=== PATIENT | female | born 1945 | race Caucasian/White ===

== ENCOUNTER 2021-05-20 15:00 | Observation (INO) | payer MEDICARE, OTHER, SELFPAY ==
[2021-05-20 15:03] VITALS: BP 198/106; PULSE 113; RESP 25; O2SAT 97; BMI 41.5
--- NOTE | 2021-05-20 15:09 | ECG_ITS ---
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 Measurements Intervals [place] Rate: 115 P: [place]: QRS: -66 QRSD: 146 T: 84 QT: 381 QTc: 529 Interpretive Statements ATRIAL FIBRILLATION WITH RAPID VENTRICULAR RESPONSE WITH ABERRANT CONDUCTION OR VENTRICULAR PREMATURE COMPLEXES RIGHT BUNDLE BRANCH BLOCK [120+ ms QRS DURATION, UPRIGHT V1, 40+ ms S IN I/aVL/V4/V5/V6] LEFT ANTERIOR FASCICULAR BLOCK [QRS AXIS <= -45, QR IN I, RS IN II] VOLTAGE CRITERIA FOR LVH [MEETS CRITERIA IN ONE OF: R(aVL), S(V1), R(V5), R(V5/V6)+S(V1)] POSSIBLE ANTERIOR MYOCARDIAL INFARCTION , PROBABLY OLD [30 ms Q WAVE IN V3/V4, OR R < 0.2 mV IN V4] No previous ECG available for comparison Electronically Signed On 05-20-2021 23:21:24 CDT by Genna Martinez M.D. [id number] f
--- NOTE | 2021-05-20 15:15 | ED_ITS ---
HPI - General Adult General: Chief complaint: Chest Pain Stated complaint: CP/ SOB/ AFIB WITH RVR Time Seen by Provider: 05/20/21 15:08 History of Present Illness: HPI narrative: Patient is a 76F with history of hypertension, pulmonary hypertension secondary to obstructive sleep apnea who presents the emergency room at the request of his outpatient PCPs provider in [place]. Patient was noted in clinic to be in atrial fibrillation with RVR to the 160s with chest pain shortness of breath. At that point time, patient had a blood pressure of 200/120. EMS was alerted and gave patient 20 mg of diltiazem in route with significant improvement of heart rate to low 100s. On arrival, patient is currently not complaining of chest pain shortness breath or palpitation or lightheadedness. Patient has no focal neurological complaints. Patient reports that during his PCPs visit, he has had significant chest pain shortness of breath. Now the pain and shortness of breath have resolved. Patient has no known history of atrial fibrillation in the past. No history of thyroid disease. Onset: 2 hrs ago Duration:2 hrs Location:outpatient office Severity:moderate/severe Review of Systems Narrative: Constitutional: No fever, no chills. HEENT: No vision changes CV: +chest pain, +palpitations PULM: no cough, +dyspnea. GI: No abdominal pain, no N/V/D. : No dysuria MSKEL: No muscle pain SKIN: No new rashes, no lesions. NEURO: No headache, no focal weakness. HEME: No visible bruises PSYCH: Normal mood PFS ED PFSH: Medical History (Updated 05/20/21 @ 21:23 by Shadia Vera MD) Afib Cataract Hearing impairment History of cardioversion LISANDRA (obstructive sleep apnea) Pulmonary HTN Surgical History (Updated 05/20/21 @ 18:10 by Maura Burgos MD) S/P AAA repair S/P colon resection Family History (Updated 05/20/21 @ 18:11 by Maura Burgos MD) Denies family history of Clotting disorder Social History (Updated 05/20/21 @ 18:11 by Maura Burgos MD) Smoking and tobacco status: former smoker Alcohol intake: never Substance/Drug Use: never Household members: spouse Housing: House Female Reproductive History: Date of last menstrual period: 11/28/20 Physical Exam Narrative: EXAM NARRATIVE: Head: Atraumatic Eyes: PERRL, conjunctiva without injection ENT: Mucous membrane moist NECK: Supple, ROM intact LUNGS: LCTAB, no crackles/rhonchi CV: Sinus tachycarida ABDOMEN: Soft, nontender in all quadrants EXTREMITY: Normal ROM SKIN: 1+ LE swelling NEURO: Awake and alert, no focal motor deficits PSYCH: Normal mood and affect Course Vital Signs: Vital signs: Vital Signs Temperature 97.8 F 05/20/21 20:59 Pulse Rate 115 H 05/20/21 20:59 Respiratory Rate 16 05/20/21 20:59 Blood Pressure 154/99 05/20/21 20:59 Pulse Oximetry 92 05/20/21 20:59 MDM - General Adult MDM Narrative: Medical decision making narrative: 76F with history of hypertension, pulmonary hypertension who presents emergency room for new onset atrial fibrillation with RVR, chest pain shortness of breath. On exam, patient is hypertensive to 190/100 patient's heart rate is noted to be between 100-120. Rest of exam within normal limit. EKG showing Afib with RVR at SA=262. Normal axis. No ST elevations/depressions to suggest coronary occlusion. Normal QRS, QT intervals. On reassessment, the patient received aspirin. She is currently chest pain- free. Troponin of 23 with no prior comparison. proBNP elevated at 482. Given new onset of atrial fibrillation with RVR and no prior workup for chest pain, patient will be mated to hospital for further evaluation. While patient was here, she received 10 mg of diltiazem. Heart rate now improved to the low 100s. Her TSH/T4 are within normal limit. Pending D-dimer. Disposition: Admission Lab Data: Labs: Lab Results 05/20/21 05/20/21 05/20/21 Range/Units 15:50 15:50 15:50 WBC 4.7 (4.0-10.0) 10^3/ uL RBC 4.92 (4.1-5.3) 10^6/u L Hgb 14.9 (11.5-15.3) g/dL Hct 46.6 (37.0-47.0) % MCV 94.7 (81-99) fl MCH 30.3 (28.0-34.0) pg MCHC 32.0 (30.0-36.0) g/dL RDW 13.3 (12.1-15.1) % Plt Count 196 (130-400) 10^3/c mm MPV 10.5 H (7.4-10.4) fL Neut % (Auto) 61.6 % Lymph % (Auto) 17.8 % [place] % (Auto) 19.1 % Eos % (Auto) 0.4 % Baso % (Auto) 0.9 % Neut # (Auto) 2.87 (1.8-7.7) 10^3/u L Lymph # (Auto) 0.8 (0.8-4.8) 10^3/u L [place] # (Auto) 0.9 (0.2-0.9) 10^3/u L Eos # (Auto) 0.0 (0.0-0.8) 10^3/u L Baso # (Auto) 0.0 (0.0-0.1) 10^3/u L Nucleated RBC % (a uto) 0 % Nucleated RBCs # 0.0 /100WBC D-Dimer (0-0.59) ug/mIFE U Sodium 136 (136-145) mmol/L Potassium 4.1 (3.5-5.1) mmol/L Chloride 100 (98-107) mmol/L Carbon Dioxide 24 (22-29) mmol/L Anion Gap 16.1 (5-19) BUN 16 (8-23) mg/dL Creatinine 1.1 H (0.5-0.9) mg/dL GFR Calculation Not Reportable Glucose 232 H (65-115) mg/dL Calculated Osmolal ity 291 (285-295) mOsm/k g Calcium 8.2 L (8.5-10.5) mg/dL Troponin T Baselin e 23 H (0-10) ng/L NT-Pro-B Natriuret Pep 482 H (0-450) pg/mL TSH 1.22 (0.27-4.20) uIU/ mL Free T4 1.35 (0.82-1.77) ng/d L 05/20/21 Range/Units 15:50 WBC (4.0-10.0) 10^3/ uL RBC (4.1-5.3) 10^6/u L Hgb (11.5-15.3) g/dL Hct (37.0-47.0) % MCV (81-99) fl MCH (28.0-34.0) pg MCHC (30.0-36.0) g/dL RDW (12.1-15.1) % Plt Count (130-400) 10^3/c mm MPV (7.4-10.4) fL Neut % (Auto) % Lymph % (Auto) % [place] % (Auto) % Eos % (Auto) % Baso % (Auto) % Neut # (Auto) (1.8-7.7) 10^3/u L Lymph # (Auto) (0.8-4.8) 10^3/u L [place] # (Auto) (0.2-0.9) 10^3/u L Eos # (Auto) (0.0-0.8) 10^3/u L Baso # (Auto) (0.0-0.1) 10^3/u L Nucleated RBC % (a uto) % Nucleated RBCs # /100WBC D-Dimer 1.27 H (0-0.59) ug/mIFE U Sodium (136-145) mmol/L Potassium (3.5-5.1) mmol/L Chloride (98-107) mmol/L Carbon Dioxide (22-29) mmol/L Anion Gap (5-19) BUN (8-23) mg/dL Creatinine (0.5-0.9) mg/dL GFR Calculation Glucose (65-115) mg/dL Calculated Osmolal ity (285-295) mOsm/k g Calcium (8.5-10.5) mg/dL Troponin T Baselin e (0-10) ng/L NT-Pro-B Natriuret Pep (0-450) pg/mL TSH (0.27-4.20) uIU/ mL Free T4 (0.82-1.77) ng/d L Discharge Plan Discharge Patient Disposition: Admitted As Inpatient Admit Provider: Maura Burgos Clinical Impression: Atrial fibrillation, Chest pain, Acute dyspnea Condition: Stable Coding Level of Care Code ED Casting Room Helper for Alexander Ochoa
[2021-05-20 15:46] VITALS: PULSE 114; RESP 16; O2SAT 96
[2021-05-20] MEDS: aspirin 325 mg Tablet PO (15:47)
[2021-05-20 16:00] LABS: Basophils % 0.9 %; Eosinophils % 0.4 %; Hematocrit 46.6 % (37.0-47.0); Hemoglobin 14.9 g/dL (11.5-15.3); Lymphocytes # 0.8 10^3/uL (0.8-4.8); Lymphocytes % 17.8 %; Mean Corpuscular Hemoglobin 30.3 pg (28.0-34.0); Mean Corpuscular Volume 94.7 fl (81-99); Mean Platelet Volume 10.5 fL (7.4-10.4); Monocytes # 0.9 10^3/uL (0.2-0.9); Monocytes % 19.1 %; Neutrophils # 2.87 10^3/uL (1.8-7.7); Neutrophils % 61.6 %; Nucleated Red Blood Cells % 0 %; Platelet Count 196 10^3/cmm (130-400); Red Blood Count 4.92 10^6/uL (4.1-5.3); Red Cell Distribution Width 13.3 % (12.1-15.1); White Blood Count 4.7 10^3/uL (4.0-10.0)
[2021-05-20 16:39] LABS: Anion Gap 16.1 (5-19); Blood Urea Nitrogen 16 mg/dL (8-23); Calcium 8.2 mg/dL (8.5-10.5); Carbon Dioxide 24 mmol/L (22-29); Chloride 100 mmol/L (98-107); Free T4 Free Thyroxine 1.35 ng/dL (0.82-1.77); Glucose 232 mg/dL (65-115); NT Pro B Type Natriuretic Pept 482 pg/mL (0-450); Osmolality Calculated 291 mOsm/kg (285-295); Potassium 4.1 mmol/L (3.5-5.1); Sodium 136 mmol/L (136-145); Thyroid Stimulating Hormone 1.22 uIU/mL (0.27-4.20)
[2021-05-20 16:40] LABS: Troponin(5th) Baseline 23 ng/L (0-10)
--- NOTE | 2021-05-20 17:00 | XRR_ITS ---
PROCEDURE INFORMATION: Exam: XR Chest Exam date and time: 05/20/2021 5:00 PM Age: 76 years old Clinical indication: Pain; Left-sided; Additional info: Chest pain TECHNIQUE: Imaging protocol: XR of the chest. Views: 1 view. COMPARISON: CTA Abdomen/Pelvis [id number] 09/11/2014 10:22 AM FINDINGS: Lungs: No focal airspace consolidation. Pleural spaces: Unremarkable. No pleural effusion. No pneumothorax. Heart/Mediastinum: Moderate cardiac enlargement. Vasculature: Mild atherosclerosis of aortic arch. Bones/joints: Unremarkable. XR/XR chest 1V portable [id number] IMPRESSION: No acute pulmonary disease.
[2021-05-20 17:10] LABS: D Dimer 1.27 ug/mIFEU (0-0.59)
--- NOTE | 2021-05-20 17:18 | P.HP_ITS ---
Providers/Chief Complaint Primary Care Provider: Aleksandra Oviedo APN Chief Complaint: CP/ SOB/ AFIB WITH RVR History of Present Illness Laura Lynn is a 76 year old female who has history of atrial fibrillation status post cardioversion x3 in the past, pulmonary hypertension sleep apnea uses CPAP at night, presented with chief complaint of chest pain and left arm pain. Patient is stating that she was driving when she experienced chest tightness it associated with chest pain in her left arm. She did not feel nauseous no episode of vomiting recent fever. She felt short of breath, she is describing her pain as tightness which lasted for about 15 minutes until she received sublingual nitroglycerin. She was seen in clinic by Beryl Oviedo was diagnosed with A. fib and sent to the ER. EMS was called at that time she was diagnosed with A. fib RVR heart rate in 180s she was given 20 mg of diltiazem which improved her heart rate however in the ER she received 10 mg of Cardizem, her heart rate was fluctuating between 98-1 07 Hypertensive 198/106, blood pressure at the clinic systolic blood pressure 220mmhg Review of Systems Const: Reports: chills, body aches and fatigue Medications/Allergies Home Medications Medication Instructions Recorded Confirmed Last Taken Type metoprolol tartrate 50 mg PO BID 05/20/21 05/20/21 05/20/21 History Allergies Allergy/AdvReac Type Severity Reaction Status Date / Time No Known Allergies Allergy Unverified 05/20/21 16:58 PFSH Acute PFSH: Medical History (Updated 05/20/21 @ 18:10 by Maura Burgos MD) Afib Cataract Hearing impairment History of cardioversion LISANDRA (obstructive sleep apnea) Pulmonary HTN Surgical History (Updated 05/20/21 @ 18:10 by Maura Burgos MD) S/P AAA repair S/P colon resection Family History (Updated 05/20/21 @ 18:11 by Maura Burgos MD) Denies family history of Clotting disorder Social History (Updated 05/20/21 @ 18:11 by Maura Burgos MD) Smoking and tobacco status: former smoker Alcohol intake: never Substance/Drug Use: never Household members: spouse Housing: House Female Reproductive History: Date of last menstrual period: 11/28/20 Vitals/I&O/Wt Last Vital Signs Pulse 114 H 05/20/21 15:46 Resp 16 05/20/21 15:46 BP 198/106 05/20/21 15:03 Pulse Ox 96 05/20/21 15:46 Weight last 48 hrs Weight 113.398 kg Physical Exam Narrative: EXAM NARRATIVE: Pleasant female who is sitting comfortably in her bed A. fib heart rate fluctuating between 95-1 05 198/106 blood pressure Variable S1-S2 There is seem to have right-sided heart failure signs with lower extremity edema bilaterally Kyphosis Distended abdomen Bilateral breath sounds with crackles at the bases EOMI, PERRLA No neurological deficit Data : 05/20/21 15:50 05/20/21 15:50 A&P Assessment and plan (1) New onset a-fib: Status: Acute (2) Obesity: Status: Acute (3) Hypertensive urgency: Status: Acute Additional A&P Information A. fib RVR Heart rate fluctuated between 95-1 05 I will start her on metoprolol 50 mg twice a day Start her on Eliquis [id number] is 4 Patient is stating that she was cardioverted x3 in the past by Dr. Pike for A. fib RVR but she never took any anticoagulating agent TSH normal check potassium magnesium level D-dimer came back as 1.2 Request CTA to rule out PE Her chest pain most likely secondary to A. fib RVR will request serial troponin and EKGs and echo in the morning Lower extremity venous Dopplers Sleep apnea: Auto CPAP at night DNR/DNI goals of care discussed with the patient in front of her Cardiac diet Attestations Medical Necessity Statement*: Anticipating discharge within 48 hours Time Spent in Patient Care: Greater than 35 minutes Coding Level of Care Code Acute Brand Director for Chg Fwd Diagnoses New onset a-fib I48.91 Obesity E66.9 Hypertensive urgency I16.0
[2021-05-20 18:33] LABS: Troponin 5 2HR 23.87 ng/L (0-10); Troponin 5 2HR Delta 0.87 ABS# (0-10)
[2021-05-20 18:36] LABS: Procalcitonin 0.08 ng/mL (0-0.5)
--- NOTE | 2021-05-20 18:44 | CTR_ITS ---
PROCEDURE INFORMATION: Exam: CTA Chest With Contrast Exam date and time: 05/20/2021 6:44 PM Age: 76 years old Clinical indication: Abnormal findings; Abnormal diagnostic tests; Elevated d-dimer; Prior surgery; Additional info: Afib rvr new onset TECHNIQUE: Imaging protocol: Computed tomographic angiography of the chest with contrast. 3D rendering (Not supervised by radiologist): MIP and/or 3D reconstructed images were created by the technologist. Radiation optimization: All CT scans at this facility use at least one of these dose optimization techniques: automated exposure control; mA and/or kV adjustment per patient size (includes targeted exams where dose is matched to clinical indication); or iterative reconstruction. Contrast material: VISI 320; Contrast volume: 66 ml; Contrast route: INTRAVENOUS (IV); COMPARISON: CR XR chest 1V portable [id number] 05/20/2021 5:14 PM RADIATION DOSE METRICS: Total DLP (mGy-cm): 583.79 FINDINGS: Pulmonary arteries: Normal. No pulmonary emboli. Aorta: Unremarkable. No aortic aneurysm. No aortic dissection. Lungs: Moderate severity emphysema. Mild bronchial wall thickening. Negative for endobronchial obstruction. No focal airspace consolidation. Pleural spaces: Unremarkable. No pneumothorax. No pleural effusion. Heart: Multi chamber cardiac enlargement. Negative for pericardial effusion. Lymph nodes: Unremarkable. No enlarged lymph nodes. Bones/joints: Bridging osteophytes throughout thoracic spine. No acute thoracic fractures. No suspicious bone lesion. Rightward convex midthoracic spine scoliosis. Soft tissues: Unremarkable. CT/CT angio chest PE protcl [id number] IMPRESSION: 1. Negative for pulmonary embolism. 2. Negative for focal pneumonia. Radiation Dose CTDIVOL = (mGy): DLP = 583.79 (mGy-cm)
[2021-05-20] MEDS: iodixanol 320 mg/mL 100mL Btl IV (19:03)
[2021-05-20 19:14] VITALS: BP 195/89; PULSE 124; RESP 20; O2SAT 96
[2021-05-20 19:40] LABS: Amphetamines Screen Urine Negative (Negative); Barbiturates Screen Urine Negative (Negative); Benzodiazepines Screen Urine Negative (Negative); Cocaine Screen Urine Negative (Negative); Opiate Screen Urine Positive (Negative); PCP Screen Urine Negative (Negative); THC Screen Urine Negative (Negative)
[2021-05-20 19:50] LABS: NT Pro B Type Natriuretic Pept 464 pg/mL (0-450)
[2021-05-20 20:59] VITALS: BP 154/99; PULSE 115; RESP 16; TEMP 36.6; O2SAT 92
[2021-05-20] MEDS: enoxaparin 120 mg/0.8 mL Syringe 110 MG SUBCUT (21:09)
[2021-05-20] MEDS: metoprolol tartrate 50 mg Tablet PO (21:09)
--- NOTE | 2021-05-20 21:09 | ECG_ITS ---
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 Measurements Intervals [place] Rate: 90 P: NV: QRS: -61 QRSD: 127 T: 67 QT: 390 QTc: 479 Interpretive Statements ATRIAL FIBRILLATION WITH ABERRANT CONDUCTION OR VENTRICULAR PREMATURE COMPLEXES RIGHT BUNDLE BRANCH BLOCK [120+ ms QRS DURATION, UPRIGHT V1, 40+ ms S IN I/aVL/V4/V5/V6] VOLTAGE CRITERIA FOR LVH [MEETS CRITERIA IN ONE OF: R(aVL), S(V1), R(V5), R(V5/V6)+S(V1)] INFERIOR MYOCARDIAL INFARCTION , PROBABLY OLD [40+ ms Q WAVE AND/OR ST/T ABNORMALITY IN II/aVF] ANTEROLATERAL MYOCARDIAL INFARCTION , OF INDETERMINATE AGE [40+ ms Q WAVE IN I/aVL/V3-V6] Compared to ECG 05/20/2021 15:36:50 Left anterior fascicular block no longer present Myocardial infarct finding still present Electronically Signed On 05-20-2021 23:53:18 CDT by Genna Martinez M.D. [id number]
[2021-05-20 21:34] VITALS: BMI 46.4
[2021-05-20 22:10] VITALS: PULSE 103; RESP 14; O2SAT 94
[2021-05-20 22:21] LABS: Troponin 5 6HR 30.76 ng/L (0-10); Troponin 5 6HR Delta 7.76 ng/L (0-12)
[2021-05-21] VITALS: BP 152/42; PULSE 92; RESP 14; TEMP 36.6; O2SAT 98
[2021-05-21 04:17] VITALS: BP 147/104; PULSE 83; RESP 14; TEMP 36.3; O2SAT 94
[2021-05-21 04:30] VITALS: PULSE 83; RESP 14; O2SAT 94
[2021-05-21 04:54] LABS: Basophils # 0.1 10^3/uL (0.0-0.1); Basophils % 1.2 %; Eosinophils % 0.7 %; Hematocrit 50.9 % (37.0-47.0); Hemoglobin 15.4 g/dL (11.5-15.3); Lymphocytes # 2.1 10^3/uL (0.8-4.8); Lymphocytes % 36.7 %; Mean Corpuscular HGB Conc 30.3 g/dL (30.0-36.0); Mean Corpuscular Hemoglobin 30.4 pg (28.0-34.0); Mean Corpuscular Volume 100.4 fl (81-99); Monocytes # 1.1 10^3/uL (0.2-0.9); Monocytes % 18.5 %; Neutrophils # 2.43 10^3/uL (1.8-7.7); Neutrophils % 42.7 %; Nucleated Red Blood Cells % 0 %; Platelet Count 197 10^3/cmm (130-400); Red Blood Count 5.07 10^6/uL (4.1-5.3); Red Cell Distribution Width 13.3 % (12.1-15.1); White Blood Count 5.7 10^3/uL (4.0-10.0)
[2021-05-21 05:21] LABS: Alanine Aminotransferase 17 U/L (0-33); Alkaline Phosphatase 83 IU/L (35-105); Blood Urea Nitrogen 16 mg/dL (8-23); Calcium 7.9 mg/dL (8.5-10.5); Carbon Dioxide 25 mmol/L (22-29); Chloride 105 mmol/L (98-107); Glucose 119 mg/dL (65-115); Osmolality Calculated 292 mOsm/kg (285-295); Sodium 140 mmol/L (136-145); Total Bilirubin 0.3 mg/dL (0.15-1.2)
[2021-05-21 05:26] LABS: Anion Gap 14.4 (5-19); Aspartate Amino Transferase 42 U/L (0-32); Potassium 4.4 mmol/L (3.5-5.1)
[2021-05-21 05:56] VITALS: PULSE 76
[2021-05-21 08:00] VITALS: BP 170/60; PULSE 95; RESP 20; TEMP 36.6; O2SAT 95
[2021-05-21] MEDS: lisinopril 10 mg Tablet PO (09:10)
[2021-05-21] MEDS: metoprolol tartrate 50 mg Tablet PO (09:10)
[2021-05-21] MEDS: enoxaparin 120 mg/0.8 mL Syringe 110 MG SUBCUT (09:10)
--- NOTE | 2021-05-21 13:44 | PM.DCS ---
Discharge Providers Date of Admission: 05/20/21 16:49 Date of Discharge: May 21, 2021 Attending Provider at Admission: Maura Burgos MD Attending Provider at Discharge: Maura Burgos MD Primary Care Provider: Aleksandra Oviedo APN Diagnoses at Discharge Discharge Diagnosis (1) New onset a-fib: Status: Acute (2) Obesity: Status: Acute (3) Hypertensive urgency: Status: Acute Reason for Visit Reason for Visit: CP/ SOB/ AFIB WITH RVR Hospital Course Hospital Course 76-year female who has history of pulmonary hypertension, sleep apnea, P. atrial fibrillation status post cardioversion x3 in the past, was not on any anticoagulation at the time of presentation in the ER presented with chief complaint of chest pain radiating towards her left arm. In the ER she was diagnosed with A. fib RVR, she was given 20 mg of IV push of Cardizem by EMS and 10 mg in the ER which improved her heart rate, her heart rate remained below 100 on metoprolol 50 mg twice a day, [id number] 4 she was started on Eliquis 5 mg twice a day Her heart rate remained below 100 before discharge, she never experienced any recurrence of chest pain, shortness of breath nausea, vomiting or diarrhea. Her blood pressure has stayed above 150, I have added lisinopril, amlodipine in addition to metoprolol. She does not want to try any diuretics stating she has incontinence and Lasix or hydrochlorothiazide would aggravate that. CTA was done which ruled out PE Physical Exam Narrative: EXAM NARRATIVE: Patient comfortably laying in her bed S1, S2 Used CPAP overnight Abdomen soft distended with obesity Lower extremity edema EOMI, PERRLA No neurological deficits Discharge Data Data Completed and Pending: Completed Studies During Hospitalization Category Date Time Status CT angio chest PE protcl [id number] Urge nt Cat Scan 05/20/21 18:44 Completed XR chest 1V chris ble [id number] Urgent Exams 05/20/21 17:00 Completed Pending at discharge Category [place] [id number] Routin e Ultrasound 05/21/21 20:34 Ordered CV. echo complete * [id number] Routine Ultrasound 05/21/21 20:34 Ordered Labs from last 24 hours 05/21/21 05/21/21 05/20/21 04:10 04:10 21:55 WBC 5.7 RBC 5.07 Hgb 15.4 H Hct 50.9 H MCV 100.4 H D MCH 30.4 MCHC 30.3 D RDW 13.3 Plt Count 197 MPV 11.0 H Neut % (Auto) 42.7 Lymph % (Auto) 36.7 [place] % (Auto) 18.5 Eos % (Auto) 0.7 Baso % (Auto) 1.2 Neut # (Auto) 2.43 Lymph # (Auto) 2.1 [place] # (Auto) 1.1 H Eos # (Auto) 0.0 Baso # (Auto) 0.1 Nucleated RBC % (a uto) 0 Nucleated RBCs # 0.0 D-Dimer Sodium 140 Potassium 4.4 Chloride 105 Carbon Dioxide 25 Anion Gap 14.4 BUN 16 Creatinine 1.0 H GFR Calculation Not Reportable Glucose 119 H Calculated Osmolal ity 292 Calcium 7.9 L Magnesium 2.0 Total Bilirubin 0.3 AST 42 H ALT 17 Alkaline Phosphata se 83 Troponin T Baselin e Troponin T 120 Min [place] de[place]-ni' Delta Troponin T Troponin T Hi Sens 6Hr 30.76 H Troponin T Hi Sens 6Hr Delta 7.76 NT-Pro-B Natriuret Pep Total Protein 7.0 Albumin 3.0 L Globulin 4.0 Procalcitonin TSH Free T4 Urine Opiates Scre en Ur Barbiturates Sc reen Ur Phencyclidine S crn Ur Amphetamines Sc reen U Benzodiazepines Scrn Urine Cocaine Scre en U Marijuana (THC) Screen 05/20/21 05/20/21 05/20/21 19:17 18:01 18:01 WBC RBC Hgb Hct MCV MCH MCHC RDW Plt Count MPV Neut % (Auto) Lymph % (Auto) [place] % (Auto) Eos % (Auto) Baso % (Auto) Neut # (Auto) Lymph # (Auto) [place] # (Auto) Eos # (Auto) Baso # (Auto) Nucleated RBC % (a uto) Nucleated RBCs # D-Dimer Sodium Potassium Chloride Carbon Dioxide Anion Gap BUN Creatinine GFR Calculation Glucose Calculated Osmolal ity Calcium Magnesium Total Bilirubin AST ALT Alkaline Phosphata se Troponin T Baselin e Troponin T 120 Min [place] de[place]ni' Delta Troponin T Troponin T Hi Sens 6Hr Troponin T Hi Sens 6Hr Delta NT-Pro-B Natriuret Pep 464 H Total Protein Albumin Globulin Procalcitonin 0.08 TSH Free T4 Urine Opiates Scre en Positive H Ur Barbiturates Sc reen Negative Ur Phencyclidine S crn Negative Ur Amphetamines Sc reen Negative U Benzodiazepines Scrn Negative Urine Cocaine Scre en Negative U Marijuana (THC) Screen Negative 05/20/21 05/20/21 05/20/21 18:01 15:50 15:50 WBC RBC Hgb Hct MCV MCH MCHC RDW Plt Count MPV Neut % (Auto) Lymph % (Auto) [place] % (Auto) Eos % (Auto) Baso % (Auto) Neut # (Auto) Lymph # (Auto) [place] # (Auto) Eos # (Auto) Baso # (Auto) Nucleated RBC % (a uto) Nucleated RBCs # D-Dimer 1.27 H Sodium Potassium Chloride Carbon Dioxide Anion Gap BUN Creatinine GFR Calculation Glucose Calculated Osmolal ity Calcium Magnesium Total Bilirubin AST ALT Alkaline Phosphata se Troponin T Baselin e 23 H Troponin T 120 Min [place] de[place]-ni' 23.87 H Delta Troponin T 0.87 Troponin T Hi Sens 6Hr Troponin T Hi Sens 6Hr Delta NT-Pro-B Natriuret Pep Total Protein Albumin Globulin Procalcitonin TSH Free T4 Urine Opiates Scre en Ur Barbiturates Sc reen Ur Phencyclidine S crn Ur Amphetamines Sc reen U Benzodiazepines Scrn Urine Cocaine Scre en U Marijuana (THC) Screen 05/20/21 05/20/21 15:50 15:50 WBC 4.7 RBC 4.92 Hgb 14.9 Hct 46.6 MCV 94.7 MCH 30.3 MCHC 32.0 RDW 13.3 Plt Count 196 MPV 10.5 H Neut % (Auto) 61.6 Lymph % (Auto) 17.8 [place] % (Auto) 19.1 Eos % (Auto) 0.4 Baso % (Auto) 0.9 Neut # (Auto) 2.87 Lymph # (Auto) 0.8 [place] # (Auto) 0.9 Eos # (Auto) 0.0 Baso # (Auto) 0.0 Nucleated RBC % (a uto) 0 Nucleated RBCs # 0.0 D-Dimer Sodium 136 Potassium 4.1 Chloride 100 Carbon Dioxide 24 Anion Gap 16.1 BUN 16 Creatinine 1.1 H GFR Calculation Not Reportable Glucose 232 H Calculated Osmolal ity 291 Calcium 8.2 L Magnesium Total Bilirubin AST ALT Alkaline Phosphata se Troponin T Baselin e Troponin T 120 Min [place] de[place]ni' Delta Troponin T Troponin T Hi Sens 6Hr Troponin T Hi Sens 6Hr Delta NT-Pro-B Natriuret Pep 482 H Total Protein Albumin Globulin Procalcitonin TSH 1.22 Free T4 1.35 Urine Opiates Scre en Ur Barbiturates Sc reen Ur Phencyclidine S crn Ur Amphetamines Sc reen U Benzodiazepines Scrn Urine Cocaine Scre en U Marijuana (THC) Screen Vitals: Last Vital Signs Temp 97.8 F 05/21/21 08:00 Pulse 95 05/21/21 08:00 Resp 20 H 05/21/21 08:00 BP 170/60 05/21/21 08:00 Pulse Ox 95 05/21/21 08:00 Discharge Plan Discharge Patient Disposition: Home Condition: Stable Prescriptions: New lisinopril 10 mg Tablet 10 mg PO DAILY 30 Days Qty: 30 RF: 3 metoprolol tartrate 50 mg Tablet 50 mg PO BID 30 Days Qty: 60 RF: 1 Eliquis 5 mg tablet 5 mg PO BID 30 Days Qty: 60 RF: 3 amlodipine 10 mg tablet 10 mg PO DAILY Qty: 30 RF: 2 Discontinued metoprolol tartrate 50 mg tablet 50 mg PO BID RF: 0 Discharge Orders: Discharge Order (Routine); Ordered 05/21/21 Ordered By: Maura Burgos Referrals: Maura Palacios MD [Physician] - 06/30/21 1:15 pm (afib rvr ) Discharge Diet: Diabetic Discharge Activity: Increase activity as tolerated Patient Instructions: Metoprolol (By mouth), Lisinopril (By mouth), Apixaban (By mouth), Hypertension, Atrial Fibrillation (DC), Opioid Safety Activity Restrictions/Additional Instructions: Eliquis 5 mg bid for prevention of stroke Metoprolol for twice a day to keep HR < 100 For your blood pressure please take amlodipine lisinopril and metoprolol if your blood pressure is below 100 you can skip these medications You can skip metoprolol dose if heart rate below 60 Discharge Attestations Time Spent in Discharge Care*: less than 30 min Quality Metrics Clinical Quality Measures During this hospital stay, did patient experience: None Coding Level of Care Code Acute Chg FW DC note Diagnoses New onset a-fib I48.91 Obesity E66.9 Hypertensive urgency I16.0
[2021-05-21 14:16] VITALS: BP 170/60; PULSE 95; RESP 20; TEMP 36.6; O2SAT 95
--- NOTE | 2021-05-22 09:05 | PC.SOCIAL ---
discharge follow up call made. spoke with pts . he reports she is feeling good, resting at the time. patient picked up medications from the pharmacy and is taking as prescribed. aware of follow up appointment with Dr. Palacios. no questions or concerns voiced.
--- NOTE | 2021-05-23 16:38 | PC.RESP ---
PULMONARY REHAB INFORMATION SENT TO PATIENT.
== END 2021-05-21 14:18 | disposition home or self-care (01) ==
LOC: ER 17:13 → MEDSURG 20:29
PROVIDERS: Admitting Provider Internal Medicine; Emergency Provider Emergency Medicine; PCP Nurse Practitioner Family; Visit Provider Internal Medicine
DX: I48.91 Unspecified atrial fibrillation (principal); E66.9 Obesity, unspecified; Z68.42 Body mass index [BMI] 45.0-49.9, adult; I16.0 Hypertensive urgency; I27.20 Pulmonary hypertension, unspecified
CPT/HCPCS: 36415; 71045; 71275; 80048; 80053; 80306; 83735; 83880; 84145; 84439; 84443; 84484; 85025; 85378; 93005; 94660; 96374; 99285; G0378; J1650; J3490; Q9967

== ENCOUNTER 2021-06-01 10:05 | Inpatient (IN) | payer MEDICARE, OTHER, SELFPAY ==
[2021-06-01] VITALS (65 sets, daily range): BP systolic 90–179; BP diastolic 46–138; PULSE 72–179; RESP 7–47; TEMP 36.4–36.9; O2SAT 89–98; BMI 48.2
--- NOTE | 2021-06-01 10:09 | XRR_ITS ---
PROCEDURE INFORMATION: Exam: XR Chest Exam date and time: 06/01/2021 10:09 AM Age: 76 years old Clinical indication: Shortness of breath; Additional info: SOB TECHNIQUE: Imaging protocol: XR of the chest. Views: 1 view. COMPARISON: CR XR chest 1V portable [id number] 05/20/2021 5:14 PM FINDINGS: Lungs: Patchy interstitial and alveolar airspace disease throughout the lung parenchyma including consolidation in the right retrocardiac region and adjacent to the left heart border. Edema and or pneumonia. Consider CT. Pleural spaces: Unremarkable. No pleural effusion. No pneumothorax. Heart/Mediastinum: Cardiac silhouette is enlarged. Bones/joints: Unremarkable. XR/XR chest 1V portable [id number] IMPRESSION: Patchy interstitial and alveolar airspace disease throughout the lung parenchyma including consolidation in the right retrocardiac region and adjacent to the left heart border. Edema and or pneumonia. Consider CT.
--- NOTE | 2021-06-01 10:09 | ECG_ITS ---
[facility] Test Date: 2021-06-01 Pat Name: Laura Lynn Department: Room: Gender: Female [employer] Checker: : 1945 Requested By: Patrizia Abraham Order Number: [id number] Yris MD: Cedric Avalos M.D. Measurements Intervals [place] Rate: 157 P: MT: QRS: -67 QRSD: 130 T: 104 QT: 299 QTc: 484 Interpretive Statements ATRIAL FIBRILLATION WITH RAPID VENTRICULAR RESPONSE WITH ABERRANT CONDUCTION OR VENTRICULAR PREMATURE COMPLEXES RIGHT BUNDLE BRANCH BLOCK [120+ ms QRS DURATION, UPRIGHT V1, 40+ ms S IN I/aVL/V4/V5/V6] VOLTAGE CRITERIA FOR LVH [MEETS CRITERIA IN ONE OF: R(aVL), S(V1), R(V5), R(V5/V6)+S(V1)] ANTERIOR MYOCARDIAL INFARCTION , OF INDETERMINATE AGE [40+ ms Q WAVE AND/OR ST/T ABNORMALITY IN V3/V4] Compared to ECG 05/20/2021 17:10:15 T-wave abnormality now present Possible ischemia now present Myocardial infarct finding still present Electronically Signed On 06-01-2021 21:42:57 CDT by Cedric Avalos M.D. [email or web address]/store/NU/[id number] f
--- NOTE | 2021-06-01 10:11 | W.ED.SOB ---
HPI - SOB/Dyspnea General: Chief Complaint: Shortness of Breath/Dyspnea Stated Complaint: RESP DISTRESS; COVID + Time Seen by Provider: 06/01/21 10:08 Source: patient and EMS Mode of arrival: EMS Limitations: no limitations History of Present Illness: HPI Narrative: 76-year-old female who was diagnosed with Covid 9 days ago states that over the last 2 to 3 days she been having increasing weakness and shortness of breath. EMS states when they arrived her pulse ox was in the 70s and currently on 6 L of oxygen. She has history of A. fib as well and she is in A. fib RVR with heart rates in the 160s. She is also had some hypotension. States she feels like she is very dehydrated as she has been too weak to get up and walk. Denies any vomiting or diarrhea. Denies any pain anywhere. Associated symptoms: Deny abdominal pain, chest pain, fever(s), nausea or vomiting Review of Systems Const: Denies: fever(s), chills, body aches or change in appetite Eyes: Denies: blurry vision or eye discomfort ENMT: Denies: throat pain or dental pain Card: Denies: chest pain Resp: Reports: dyspnea GI: Denies: abdominal pain, nausea, vomiting or diarrhea : Denies: dysuria Musc: Denies: neck pain or back pain Skin/Breast: Denies: rash Neuro: Denies: headache(s) Psych: Denies: depression Gian/Lymph: Denies: easy bruising All/Imm: Denies: urticaria PFS ED PFSH: Medical History (Updated 06/01/21 @ 13:31 by Syd Salvador MD) Afib Cataract Hearing impairment History of cardioversion LISANDRA (obstructive sleep apnea) Pulmonary HTN Surgical History S/P AAA repair S/P colon resection Family History Denies family history of Clotting disorder Social History Smoking and tobacco status: former smoker Alcohol intake: never Household members: spouse Housing: House Female Reproductive History: Date of last menstrual period: 11/28/20 Physical Exam Const: COMMON NORMALS: no acute distress, patient oriented x3 and healthy appearing HENMT: COMMON NORMALS: normocephalic and atraumatic HEAD & SCALP: normocephalic and atraumatic Eye: COMMON NORMALS: Equal, round and reactive pupils present and EOMs intact bilaterally PUPIL: Yes Equal, round and reactive pupils present Neck/C-Spine: COMMON NORMALS: full ROM and supple Chest: COMMONS NORMALS: normal inspection of the chest and normal palpation of entire chest wall Resp: COMMON NORMALS: No retractions and No use of accessory muscles EFFORT & INSPECTION: Yes respiratory distress AUSCULTATION: rales Cardio: COMMON NORMALS: No murmurs present (Cardio) RATE: tachycardic RHYTHM: abnormal rhythm irregularly irregular GI: COMMON NORMALS: Normal to inspection, nondistended, normoactive bowel sounds present, Soft to palpation, non-tender and no masses PALPATION: Yes Soft to palpation Extremity: COMMON NORMALS: normal to inspection and full ROM Neuro: COMMON NORMALS: patient oriented x3, moves all extremities and no focal motor deficits Psych: COMMON NORMALS: mental status grossly normal, Normal thought process present and cooperative THOUGHT PROCESS: Normal thought process present Skin: COMMON NORMALS: no rashes or lesions noted and no wounds GENERAL SKIN EXAM: no rashes or lesions noted Course Vital Signs: Vital signs: Vital Signs Temperature 98.5 F 06/01/21 10:08 Pulse Rate 115 H 06/01/21 14:00 Respiratory Rate 23 H 06/01/21 13:11 Blood Pressure 141/92 06/01/21 14:00 Pulse Oximetry 95 06/01/21 14:00 MDM - SOB/Dyspnea MDM Narrative: Medical decision making narrative: Laura presents here with hypoxia from Covid pneumonia. Patient is requiring BiPAP. She is also in A. fib with RVR with heart rate improving after labetalol and Cardizem is currently on Cardizem drip. Patient seen in the ER by hospitalist will admit to the ICU. Lab Data: Labs: Lab Results 06/01/21 06/01/21 06/01/21 10:14 10:35 10:35 WBC 10.2 10^3/uL H 10 ^3/uL (4.0-10.0) RBC 6.04 10^6/uL H 10 ^6/uL (4.1-5.3) Hgb 18.3 g/dL H g/dL (11.5-15.3) Hct 55.5 % H % (37.0-47.0) MCV 91.9 fl fl (81-99) MCH 30.3 pg pg (28.0-34.0) MCHC 33.0 g/dL g/dL (30.0-36.0) RDW 13.0 % % (12.1-15.1) Plt Count 243 10^3/cmm 10^3 /cmm (130-400) MPV 11.1 fL H fL (7.4-10.4) Neut % (Auto) 81.9 % % Lymph % (Auto) 8.8 % % Whiteside % (Auto) 8.5 % % Eos % (Auto) 0.0 % % Baso % (Auto) 0.1 % % Neut # (Auto) 8.37 10^3/uL H 10 ^3/uL (1.8-7.7) Lymph # (Auto) 0.9 10^3/uL 10^3/ uL (0.8-4.8) Whiteside # (Auto) 0.9 10^3/uL 10^3/ uL (0.2-0.9) Eos # (Auto) 0.0 10^3/uL 10^3/ uL (0.0-0.8) Baso # (Auto) 0.0 10^3/uL 10^3/ uL (0.0-0.1) Nucleated RBC % (a uto) 0 % % Nucleated RBCs # 0.0 /100WBC /100W BC PT 15.10 SECONDS H S ECONDS (12.1-14.9) INR 1.15 (0.8-1.2) Fibrinogen D-Dimer 5.05 ug/mIFEU H u g/mIFEU (0-0.59) Specimen Type Arterial Sample Site Radial, right ABG pH 7.51 H (7.35-7.45) ABG pCO2 28.4 mmHg L mmHg (35-45) ABG pO2 41.4 mmHg L mmHg (80.0-100.0) ABG HCO3 22.9 mmol/L mmol/ L (22-26) ABG Base Excess 1.4 mmol/L mmol/L (-2.0-2.0) Yoshi Test Pos Hematocrit 55.5 % H % (37-47) O2 Delivery Device Nc O2 Liters/Min 6.0 % % FiO2 45.0 % % Avionics Repair Technician ID Monro Sodium Potassium Chloride Carbon Dioxide Anion Gap BUN Creatinine GFR Calculation Glucose Calculated Osmolal ity Lactic Acid Calcium Magnesium Iron TIBC % Saturation Unsat Iron Binding Total Bilirubin AST ALT Alkaline Phosphata se C-Reactive Protein NT-Pro-B Natriuret Pep Total Protein Albumin Globulin Procalcitonin Urine Color Urine Appearance Urine pH Ur Specific Gravit y Urine Protein Urine Glucose (UA) Urine Ketones Urine Blood Urine Nitrate Urine Bilirubin Urine Urobilinogen Ur Leukocyte Neha ase Urine RBC Urine WBC Ur Squamous Epith Cells Amorphous Sediment Urine Bacteria Hepatitis A IgM Ab Hep Bs Antigen Hep Bs Antibody Hep B Core Total A b Hepatitis C Antibo dy HIV 1&2 Ab & HIV 1 Ag HIV 1&2 Antibody 06/01/21 06/01/21 06/01/21 10:35 10:35 10:35 WBC RBC Hgb Hct MCV MCH MCHC RDW Plt Count MPV Neut % (Auto) Lymph % (Auto) Whiteside % (Auto) Eos % (Auto) Baso % (Auto) Neut # (Auto) Lymph # (Auto) Whiteside # (Auto) Eos # (Auto) Baso # (Auto) Nucleated RBC % (a uto) Nucleated RBCs # PT INR Fibrinogen D-Dimer Specimen Type Sample Site ABG pH ABG pCO2 ABG pO2 ABG HCO3 ABG Base Excess Yoshi Test Hematocrit O2 Delivery Device O2 Liters/Min FiO2 Avionics Repair Technician ID Sodium 138 mmol/L mmol/L (136-145) Potassium 4.5 mmol/L mmol/L (3.5-5.1) Chloride 100 mmol/L mmol/L (98-107) Carbon Dioxide 22 mmol/L mmol/L (22-29) Anion Gap 20.5 H (5-19) BUN 48 mg/dL H mg/dL (8-23) Creatinine 1.1 mg/dL H mg/dL (0.5-0.9) GFR Calculation Not Reportable Glucose 343 mg/dL H mg/dL (65-115) Calculated Osmolal ity 312 mOsm/kg H mOs m/kg (285-295) Lactic Acid 3.6 mmol/L H mmol /L (0.5-2.2) Calcium 8.6 mg/dL mg/dL (8.5-10.5) Magnesium 2.0 mg/dL mg/dL (1.7-2.3) Iron Cancelled TIBC Cancelled % Saturation Cancelled Unsat Iron Binding Cancelled Total Bilirubin 1.0 mg/dL mg/dL (0.15-1.2) AST 13 U/L U/L (0-32) ALT 16 U/L U/L (0-33) Alkaline Phosphata se 102 IU/L IU/L (35-105) C-Reactive Protein 74.7 mg/L H mg/L (0.0-4.9) NT-Pro-B Natriuret Pep 1184 pg/mL H pg/m L (0-450) Total Protein 7.2 g/dL g/dL (6.6-8.7) Albumin 3.0 g/dL L g/dL (3.5-5.2) Globulin 4.2 g/dL g/dL (1.3-4.6) Procalcitonin 0.08 ng/mL ng/mL Cancelled (0-0.5) Urine Color Urine Appearance Urine pH Ur Specific Gravit y Urine Protein Urine Glucose (UA) Urine Ketones Urine Blood Urine Nitrate Urine Bilirubin Urine Urobilinogen Ur Leukocyte Neha ase Urine RBC Urine WBC Ur Squamous Epith Cells Amorphous Sediment Urine Bacteria Hepatitis A IgM Ab Hep Bs Antigen Hep Bs Antibody Hep B Core Total A b Hepatitis C Antibo dy HIV 1&2 Ab & HIV 1 Ag HIV 1&2 Antibody 06/01/21 06/01/21 06/01/21 10:35 10:38 11:13 WBC RBC Hgb Hct MCV MCH MCHC RDW Plt Count MPV Neut % (Auto) Lymph % (Auto) Whiteside % (Auto) Eos % (Auto) Baso % (Auto) Neut # (Auto) Lymph # (Auto) Whiteside # (Auto) Eos # (Auto) Baso # (Auto) Nucleated RBC % (a uto) Nucleated RBCs # PT INR Fibrinogen 372 mg/dL mg/dL (174-498) D-Dimer Specimen Type Sample Site ABG pH ABG pCO2 ABG pO2 ABG HCO3 ABG Base Excess Yoshi Test Hematocrit O2 Delivery Device O2 Liters/Min FiO2 Avionics Repair Technician ID Sodium Potassium Chloride Carbon Dioxide Anion Gap BUN Creatinine GFR Calculation Glucose Calculated Osmolal ity Lactic Acid Calcium Magnesium Iron TIBC % Saturation Unsat Iron Binding Total Bilirubin AST ALT Alkaline Phosphata se C-Reactive Protein NT-Pro-B Natriuret Pep Total Protein Albumin Globulin Procalcitonin Urine Color Heike (Yellow) Urine Appearance Cloudy (CLEAR) Urine pH 5 (5-7) Ur Specific Gravit y 1.020 (1.005-1.030) Urine Protein 1+ H (Negative) Urine Glucose (UA) 4+ H (Normal) Urine Ketones Negative (Negative) Urine Blood 3+ H (Negative) Urine Nitrate Positive H (Negative) Urine Bilirubin Neg (Negative) Urine Urobilinogen Norm mg/dL mg/dL (Negative) Ur Leukocyte Neha ase 2+ H (Negative) Urine RBC Too numerous to c nt /hpf H /hpf (0-2) Urine WBC Too numerous to c nt /hpf H /hpf (0-5) Ur Squamous Epith Cells 5-10 /hpf H /hpf (0-5) Amorphous Sediment Not Reportable Urine Bacteria 4+ /hpf H /hpf (NONE) Hepatitis A IgM Ab Hep Bs Antigen Hep Bs Antibody Hep B Core Total A b Hepatitis C Antibo dy HIV 1&2 Ab & HIV 1 Ag Non-reactive (Non-Reactiv) HIV 1&2 Antibody Non-reactive (Non-Reactiv) 06/01/21 06/01/21 11:13 13:05 WBC RBC Hgb Hct MCV MCH MCHC RDW Plt Count MPV Neut % (Auto) Lymph % (Auto) Whiteside % (Auto) Eos % (Auto) Baso % (Auto) Neut # (Auto) Lymph # (Auto) Whiteside # (Auto) Eos # (Auto) Baso # (Auto) Nucleated RBC % (a uto) Nucleated RBCs # PT INR Fibrinogen D-Dimer Specimen Type Arterial Sample Site Radial, right ABG pH 7.45 (7.35-7.45) ABG pCO2 31.3 mmHg L mmHg (35-45) ABG pO2 62.5 mmHg L mmHg (80.0-100.0) ABG HCO3 21.7 mmol/L L mmo l/L (22-26) ABG Base Excess -1.2 mmol/L mmol/ L (-2.0-2.0) Yoshi Test Pos Hematocrit 51.6 % H % (37-47) O2 Delivery Device Bipap O2 Liters/Min FiO2 85.0 % % Avionics Repair Technician ID Monro Sodium Potassium Chloride Carbon Dioxide Anion Gap BUN Creatinine GFR Calculation Glucose Calculated Osmolal ity Lactic Acid Calcium Magnesium Iron TIBC % Saturation Unsat Iron Binding Total Bilirubin AST ALT Alkaline Phosphata se C-Reactive Protein NT-Pro-B Natriuret Pep Total Protein Albumin Globulin Procalcitonin Urine Color Urine Appearance Urine pH Ur Specific Gravit y Urine Protein Urine Glucose (UA) Urine Ketones Urine Blood Urine Nitrate Urine Bilirubin Urine Urobilinogen Ur Leukocyte Neha ase Urine RBC Urine WBC Ur Squamous Epith Cells Amorphous Sediment Urine Bacteria Hepatitis A IgM Ab Non-reactive (Nonreactive) Hep Bs Antigen Non-reactive (Nonreactive) Hep Bs Antibody 4.2 L (11.5-1000) Hep B Core Total A b Non-reactive (Nonreactive) Hepatitis C Antibo dy Non-reactive (Nonreactive) HIV 1&2 Ab & HIV 1 Ag HIV 1&2 Antibody Imaging Data^: CXR: Attestation: I personally reviewed and interpreted this imaging study as follows: Radiologist's impression: [place] [address] XRay Report Signed Patient: Laura Lynn Unit #: [id number] : 1945 Age/Sex: 76 / F ADM Date: 06/01/21 Loc: ER Room/Bed: Attending Dr: Ordering Provider/Ordering MD: Patrizia Abraham MD Date of Service: 06/01/21 Procedure(s): XR chest 1V portable [id number] Accession Number(s): [id number] Report Number: [id number] PROCEDURE INFORMATION: Exam: XR Chest Exam date and time: 06/01/2021 10:09 AM Age: 76 years old Clinical indication: Shortness of breath; Additional info: SOB TECHNIQUE: Imaging protocol: XR of the chest. Views: 1 view. COMPARISON: CR XR chest 1V portable [id number] 05/20/2021 5:14 PM FINDINGS: Lungs: Patchy interstitial and alveolar airspace disease throughout the lung parenchyma including consolidation in the right retrocardiac region and adjacent to the left heart border. Edema and or pneumonia. Consider CT. Pleural spaces: Unremarkable. No pleural effusion. No pneumothorax. Heart/Mediastinum: Cardiac silhouette is enlarged. Bones/joints: Unremarkable. XR/XR chest 1V portable [id number] IMPRESSION: Patchy interstitial and alveolar airspace disease throughout the lung parenchyma including consolidation in the right retrocardiac region and adjacent to the left heart border. Edema and or pneumonia. Consider CT. Dictated By: Jassi Brizuela MD Signed By: Jassi Brizuela MD Signed Date/Time: 06/01/211131 DD/ 31 EKG Data^: EKG 1: Attestation: I personally reviewed and interpreted this EKG as follows: EKG Interpretation Date: 06/01/21 EKG interpretation time: 10:09 Interpretation: afib with rvr hr [address] elevation qrs 130 qtc 387 unchanged from previous Critical Care Time Critical Care Time: Critical Care Time: Yes Total Critical Care Time: 35 Attestation: This case had a high probability of a clinically significant, sudden, or life threatening deterioration of this patient's condition which required my full and direct attention, intervention and personal management. Discharge Plan Discharge Patient Disposition: Admitted As Inpatient Admit Provider: Syd Salvador Clinical Impression: COVID-19, Atrial fibrillation with RVR Condition: Stable Coding Level of Care Code ED Teacher Assistant for Chg Fwd Exam Comprehensive
[2021-06-01] MEDS: sodium chloride 0.9% 1,000 ML 999 ML IV ×2 (10:13→10:39)
[2021-06-01 10:26] LABS: ABG PCO2 28.4 mmHg (35-45); ABG PH Result 7.51 (7.35-7.45); Arterial Blood Gas Hematocrit 55.5 % (37-47); Base Excess ABG 1.4 mmol/L (-2.0-2.0); Blood Gas Allen Test Pos; Blood Gas Operator Identificat MONRO; Blood Gas Sample Site Radial, right; Blood Gas Sample Type Arterial; HCO3 ABG 22.9 mmol/L (22-26); Oxygen Device NC; PO2 ABG 41.4 mmHg (80.0-100.0)
[2021-06-01] MEDS: dexamethasone 4 mg/mL INJ 6 MG IVP (10:41)
[2021-06-01 10:54] LABS: Basophils % 0.1 %; Hematocrit 55.5 % (37.0-47.0); Hemoglobin 18.3 g/dL (11.5-15.3); Lymphocytes # 0.9 10^3/uL (0.8-4.8); Lymphocytes % 8.8 %; Mean Corpuscular Hemoglobin 30.3 pg (28.0-34.0); Mean Corpuscular Volume 91.9 fl (81-99); Mean Platelet Volume 11.1 fL (7.4-10.4); Monocytes # 0.9 10^3/uL (0.2-0.9); Monocytes % 8.5 %; Neutrophils # 8.37 10^3/uL (1.8-7.7); Neutrophils % 81.9 %; Nucleated Red Blood Cells % 0 %; Platelet Count 243 10^3/cmm (130-400); Red Blood Count 6.04 10^6/uL (4.1-5.3); White Blood Count 10.2 10^3/uL (4.0-10.0)
[2021-06-01 11:01] LABS: INR 1.15 (0.8-1.2)
[2021-06-01 11:05] LABS: Lactic Sepsis W/Reflex 3.6 mmol/L (0.5-2.2)
[2021-06-01 11:11] LABS: D Dimer 5.05 ug/mIFEU (0-0.59)
--- NOTE | 2021-06-01 11:12 | CTR_ITS ---
PROCEDURE INFORMATION: Exam: CTA Chest With Contrast Exam date and time: 06/01/2021 11:12 AM Age: 76 years old Clinical indication: Shortness of breath; Prior surgery; Surgery date: 6+ months; Surgery type: Aaa; Patient HX: Covid+ w worsening SOB TECHNIQUE: Imaging protocol: Computed tomographic angiography of the chest with contrast. 3D rendering (Not supervised by radiologist): MIP and/or 3D reconstructed images were created by the technologist. Radiation optimization: All CT scans at this facility use at least one of these dose optimization techniques: automated exposure control; mA and/or kV adjustment per patient size (includes targeted exams where dose is matched to clinical indication); or iterative reconstruction. Contrast material: VISI 320; Contrast volume: 83 ml; Contrast route: INTRAVENOUS (IV); COMPARISON: CT angio chest PE protcl [id number] 05/20/2021 7:00 PM RADIATION DOSE METRICS: Total DLP (mGy-cm): 556.14 FINDINGS: Pulmonary arteries: Normal. No pulmonary emboli. Aorta: Unremarkable. No aortic aneurysm. No aortic dissection. Lungs: There are multifocal areas of ground-glass opacification in all lobes of the bilateral lungs. No dominant lung mass. Pleural spaces: Unremarkable. No pneumothorax. No pleural effusion. Heart: Unremarkable. No cardiomegaly. No pericardial effusion. Lymph nodes: Unremarkable. No enlarged lymph nodes. Bones/joints: Unremarkable. No acute fracture. Soft tissues: Unremarkable. CT/CT angio chest PE protcl [id number] IMPRESSION: There is no evidence for a pulmonary artery embolus. There are multifocal areas of ground-glass opacification in the bilateral lungs consistent with the given history of Covid 19 pneumonia. This finding has significantly worsened when compared with 05/20/2021. Clinical correlation is advised. Radiation Dose CTDIVOL = (mGy): DLP = 556.14 (mGy-cm)
[2021-06-01 11:16] LABS: NT Pro B Type Natriuretic Pept 1184 pg/mL (0-450); Procalcitonin 0.08 ng/mL (0-0.5)
[2021-06-01 11:27] LABS: Add Urine Microscopic? YES; Bilirubin Urine Neg (Negative); Blood Urine 3+ (Negative); Glucose Urine UA 4+ (Normal); Ketones Urine Negative (Negative); Leukocyte Esterase Urine 2+ (Negative); Nitrate Urine Positive (Negative); Protein Urine 1+ (Negative); Urine Appearance Cloudy (CLEAR); Urine Color Amber (Yellow); Urobilinogen Urine Norm (Negative); pH Urine 5 (5-7)
[2021-06-01 11:27] LABS: Alanine Aminotransferase 16 U/L (0-33); Alkaline Phosphatase 102 IU/L (35-105); Aspartate Amino Transferase 13 U/L (0-32); Blood Urea Nitrogen 48 mg/dL (8-23); C Reactive Protein 74.7 mg/L (0.0-4.9); Calcium 8.6 mg/dL (8.5-10.5); Carbon Dioxide 22 mmol/L (22-29); Chloride 100 mmol/L (98-107); Globulin 4.2 g/dL (1.3-4.6); Glucose 343 mg/dL (65-115); Osmolality Calculated 312 mOsm/kg (285-295); Sodium 138 mmol/L (136-145); Total Protein 7.2 g/dL (6.6-8.7)
[2021-06-01 11:29] LABS: Anion Gap 20.5 (5-19); Potassium 4.5 mmol/L (3.5-5.1)
[2021-06-01 11:29] LABS: Bacteria Urine 4+ /hpf; RBC Urine TOO NUMEROUS TO CNT /hpf (0-2); WBC Urine TOO NUMEROUS TO CNT /hpf (0-5)
[2021-06-01 11:30] LABS: Add Urine Culture? Yes
[2021-06-01] MEDS: cefTRIAXone 1,000 MG in sodium chloride 0.9% (plus) 50 ML 100 MG IV (11:34)
[2021-06-01 12:14] LABS: HIV 1 & 2 Antibody Non-Reactive (Non-Reactiv); HIV 1 & 2 Antigen Non-Reactive (Non-Reactiv)
[2021-06-01 12:22] LABS: Hepatitis A Antibody IgM Non-Reactive (Nonreactive); Hepatitis B Core AB, Total Non-Reactive (Nonreactive); Hepatitis B Surface AB 4.2 (11.5-1000); Hepatitis B Surface Antigen Non-Reactive (Nonreactive); Hepatitis C Virus Antibody Non-Reactive (Nonreactive)
[2021-06-01 12:33] LABS: Reflex Lactate Order REFLEX LACTIC ORDERD
[2021-06-01] MEDS: labetalol 5 mg/mL SDV 20mL 10 MG IVP (13:07)
[2021-06-01 13:16] LABS: ABG PCO2 31.3 mmHg (35-45); ABG PH Result 7.45 (7.35-7.45); Arterial Blood Gas Hematocrit 51.6 % (37-47); Base Excess ABG -1.2 mmol/L (-2.0-2.0); Blood Gas Allen Test Pos; Blood Gas Sample Type Arterial; HCO3 ABG 21.7 mmol/L (22-26); PO2 ABG 62.5 mmHg (80.0-100.0)
[2021-06-01 13:18] LABS: Blood Gas Operator Identificat MONRO; Blood Gas Sample Site Radial, right; Oxygen Device BIPAP
--- NOTE | 2021-06-01 13:31 | P.HP_ITS ---
Providers/Chief Complaint Primary Care Provider: Aleksandra Oviedo APN Chief Complaint: RESP DISTRESS; COVID + History of Present Illness Laura Lynn is a 76 year old female past medical history of atrial fibrillation, s/p cardioversion x 3 times in the past, pulmonary hypertension, obstructive sleep apnea on CPAP at night, post AAA repair who was recently in hospital from 05/20-05/21 for atrial fibrillation with rapid ventricular response. Most of the history taken through chart review and by conversation over the phone with son. As per the son both patient and her post patient's discharge on May 21 when not feeling well and has been tested positive for COVID-19 and has been under quarantine. As per the son patient has been doing fine. Last night but when she got up today morning had no energy. Having myalgias so presented to the ER. In the ER patient was found to be in A. fib rapid ventricular response with heart rate as 180 bpm for which she was started on IV Cardizem and given IV labetalol. On my examination patient was on Cardizem drip of 15 with heart rate running 115 bpm to 130 bpm, saturating 92% on BiPAP ventilation 85%. I have requested patient to be given amiodarone 150 mg bolus, Lasix 60 mg, remdesivir 200 mg. Her blood work in the ER was concerning for a white count of 10, hemoglobin of 18, D-dimer of 5, ABG showing pH of 7.4, PO2 of 62, PCO2 of 31 on 85% BiPAP ventilation, chemistry showing sodium of 138, BUN of 48, creatinine of 1.1, lactate of 3.6 coming down to 2.82 hours, CRP of 74, proBNP of 1100, UA concerning for 3+ leuk esterase, positive nitrite, numerous WBCs. Patient had CTA chest with results as below. Review of Systems General: Reports: ROS unobtainable due to medical condition Medications/Allergies Home Medications Medication Instructions Recorded Confirmed Last Taken Type amlodipine 10 mg PO DAILY #30 tab 05/21/21 06/01/21 Unknown Rx apixaban [Eliquis] 5 mg PO BID 30 Days #60 tab 05/21/21 06/01/21 Unknown Rx lisinopril 10 mg PO DAILY 30 Days #30 tab 05/21/21 06/01/21 Unknown Rx metoprolol tartrate 50 mg PO BID 30 Days #60 tab 05/21/21 06/01/21 Unknown Rx guaifenesin [Mucinex] 600 mg PO BID PRN 06/01/21 06/01/21 Unknown History Allergies Allergy/AdvReac Type Severity Reaction Status Date / Time No Known Allergies Allergy Unverified 05/20/21 16:58 PFSH Acute PFSH: Medical History (Updated 06/01/21 @ 14:48 by Syd Salvador MD) Afib Cataract Hearing impairment History of cardioversion LISANDRA (obstructive sleep apnea) Pulmonary HTN Surgical History S/P AAA repair S/P colon resection Family History Denies family history of Clotting disorder Social History Smoking and tobacco status: former smoker Alcohol intake: never Household members: spouse Housing: House Female Reproductive History: Date of last menstrual period: 11/28/20 Vitals/I&O/Wt Last Vital Signs Temp 98.5 F 06/01/21 10:08 Pulse 110 H 06/01/21 13:11 Resp 23 H 06/01/21 13:11 BP 131/94 06/01/21 13:11 Pulse Ox 93 06/01/21 13:11 05/31/21 06/01/21 06/01/21 22:59 06:59 14:59 Intake Total 2057 Balance 2057 Weight last 48 hrs Weight 131.542 kg Physical Exam Narrative: EXAM NARRATIVE: General: On BiPAP, AOx3, acute distress because of HEENT: PERRLA, p tachycardia and BiPAP ventilationupils bilaterally equal and reactive Chest: Bronchial breath sounds bilaterally, coarse crackles present all over the lung ortega, elevated JVP, equal good air entry bilaterally CVS: S1-S2 irregularly irregular, tachycardia, possible S3 gallops, no rubs Abdomen: Soft, nontender, no organomegaly, bowel sounds present Neuro: No focal deficits, no facial deformity, AO x3, power 5/5 in all limbs Data : 06/01/21 10:35 06/01/21 10:35 A&P Assessment and plan (1) ARDS (adult respiratory distress syndrome): Status: Acute (2) COVID-19: Status: Acute (3) Atrial fibrillation with RVR: Status: Acute (4) LISANDRA (obstructive sleep apnea): Status: Acute (5) Pulmonary HTN: Status: Acute Additional A&P Information ARDS/Hypoxia secondary to combination of COVID-19 pneumonia along with obstructive sleep apnea and congestive heart failure: Moderate to severe disease. Oxygen supplementation keeping saturation over 88%. Dexamethasone 6 mg daily. Remdesivir to finish a 5-day course. Vitamin C, zinc. DuoNebs every 6, budesonide twice daily Pulmonary toilet with incentive spirometry flutter valve. We will monitor inflammatory markers including ferritin, ESR, CRP, D-dimer, fibrinogen. Hold off on Actemra for now given high chances of urinary tract infection. D-dimer elevated. Check CTA to rule out pulmonary embolism. Switch from Eliquis to full dose Lovenox. Will monitor for anemia or blood loss. Check sputum culture, procalcitonin, urine Legionella, bacterial antigen, blood culture. Start on IV ceftriaxone 1 g daily, azithromycin 500 mg daily. Ceftriaxone will cover for UTI as well. Given hypoxia will try to keep patient as negative as possible. Patient clinically in congestive heart failure. Echocardiogram. Lasix 60 mg IV twice daily. Meza catheterization Strict input output charting, daily weights. BiPAP as needed. Atrial fibrillation with rapid ventricular response: Currently on Cardizem drip. Give amiodarone 150 mg bolus. And will plan to switch to amio GTT Continue with home dose of metoprolol. Zurdo vas score: At least 5. Switch from Eliquis to full dose Lovenox for now. UTI: Urine culture. Ceftriaxone for UTI as well. Will follow cultures and change antibiotics accordingly. Acute kidney injury: Creatinine 1.1. Baseline creatinine normal. Most likely a combination of mild CRS and sepsis from Covid. We will continue to monitor. Lasix as above. Medical reconciliation done for nephrotoxic drugs. For now hold off on lisinopril. Hypertension: Goal blood pressure less than 140/90 mmHg. Continue with metoprolol as above. For now hold off on lisinopril and amlodipine. Full code. Full dose Lovenox will help with DVT prophylaxis as well. Cardiac diet. Famotidine for PUD prophylaxis. Attestations Medical Necessity Statement*: Admission for more than 2 midnights for management of hypoxia secondary to COVID-19 pneumonia, congestive heart failure, atrial fibrillation with rapid ventricular response. Critical Care Time: The high probability of a clinically significant, sudden or life threatening deterioration of the patient's [Pulmonary, cardiac, renal] system(s) required my full and direct attention, intervention and personal management. The critical care time is as shown. This time is in addition to time spent performing any reported procedures but includes the following: [x] Data and vital sign review and interpretation [x] Patient assessment, examination and intervention [x] Documentation [x] Medication orders and management Critical Care Time (min): 90 Coding Level of Care Code Acute Building Certifier for [facility] Fwd Diagnoses ARDS (adult respiratory distress syndrome) J80 COVID-19 U07.1 Atrial fibrillation with RVR I48.91 LISANDRA (obstructive sleep apnea) G47.33 Pulmonary HTN I27.20
[2021-06-01] MEDS: iodixanol 320 mg/mL 100mL Btl IV (13:33)
[2021-06-01] MEDS: FUROsemide 10 mg/mL SDV 10mL 60 MG IVP (14:04)
[2021-06-01] MEDS: azithromycin 250 mg Tablet 500 MG PO (14:05)
[2021-06-01] MEDS: enoxaparin 30 mg/0.3 mL Syringe SUBCUT (14:05)
[2021-06-01] MEDS: enoxaparin 100 mg/mL Syringe SUBCUT (14:05)
[2021-06-01] MEDS: dilTIAZem 30 mg Tablet PO ×2 (14:05→20:55)
[2021-06-01 14:28] LABS: Fibrinogen 372 mg/dL (174-498)
[2021-06-01 14:32] LABS: Lactic Acid level (Lactate) 2.8 mmol/L (0.5-2.2)
[2021-06-01 15:00] LABS: Potassium, Radom Urine 31 mmol/L; Urine Random Chloride 22 mmol/L; Urine Random Sodium 36 mmol/L
[2021-06-01] MEDS: remdesivir 200 MG in sodium chloride 0.9% (100 ml) 100 ML 100 MG IV (15:13)
[2021-06-01] MEDS: ipratropium-albuterol 3 mL Neb INHALATION (15:44)
[2021-06-01] MEDS: benzonatate 100 mg Capsule PO ×2 (15:47→20:55)
--- NOTE | 2021-06-01 16:22 | ECG_ITS ---
[facility] Test Date: 2021-06-01 Pat Name: Laura Lynn Department: Room: ICU02 Gender: Female Special Needs Tutor: : 1945 Requested By: Syd Salvador Order Number: [id number] Yris MD: Cedric Avalos M.D. Measurements Intervals [place] Rate: 125 P: ME: QRS: -60 QRSD: 139 T: 124 QT: 357 QTc: 516 Interpretive Statements ATRIAL FIBRILLATION WITH RAPID VENTRICULAR RESPONSE WITH ABERRANT CONDUCTION OR VENTRICULAR PREMATURE COMPLEXES LEFT AXIS DEVIATION [QRS AXIS < -30] RIGHT BUNDLE BRANCH BLOCK [120+ ms QRS DURATION, UPRIGHT V1, 40+ ms S IN I/aVL/V4/V5/V6] VOLTAGE CRITERIA FOR LVH [MEETS CRITERIA IN ONE OF: R(aVL), S(V1), R(V5), R(V5/V6)+S(V1)] ANTERIOR MYOCARDIAL INFARCTION , OF INDETERMINATE AGE [40+ ms Q WAVE AND/OR ST/T ABNORMALITY IN V3/V4] MODERATE T-WAVE ABNORMALITY, CONSIDER LATERAL ISCHEMIA [-0.1+ mV T-WAVE IN I/aVL/V5/V6] Compared to ECG 06/01/2021 10:09:42 Left-axis deviation now present Myocardial infarct finding still present T-wave abnormality still present Possible ischemia still present Electronically Signed On 06-01-2021 21:45:24 CDT by Cedric Avalos M.D. [id number]
[2021-06-01 16:24] LABS: Creatine Phosphokinase 25 U/L (26-192); Iron 79 ug/dL (37-145); Thyroid Stimulating Hormone 0.52 uIU/mL (0.27-4.20); Total Iron Binding Capacity 272 mcg/dl; Unsaturated Iron Binding 193 ug/dL (112-347)
[2021-06-01 16:36] LABS: Influenza A by IFA Negative (Negative); Influenza B by IFA Negative (Negative)
--- NOTE | 2021-06-01 17:04 | PC.NURSE ---
1766 This nurse accompanied pt from ED to ICU. Pt on 15LNRB for tx. Placed in bipap per RT upon arrival, connected to ICU monitor. Remains in afib with rvr. Amio bolus completed. Amio gtt started per orders. Pt AAOx4, makes all needs known. Denies any pain at this time. Bilateral AC PIV's in place. Meza cath draining cloudy, rosa urine to BSD. Will monitor. 1700 Education provided to pt includes treatment plan and medication regimen and O2 safety. Pt verbalizes understanding. Repositioned q2h and PRN. Will monitor.
[2021-06-01] MEDS: ferrous gluconate 324 mg Tablet PO (17:21)
[2021-06-01] MEDS: ascorbic acid 500 mg Tablet PO (17:21)
[2021-06-01] MEDS: digoxin 250 mcg/ml INJ 2 mL 600 MCG IVP (18:10)
[2021-06-01] MEDS: famotidine 20 mg/2 mL INJ IVP (20:54)
[2021-06-01] MEDS: metoprolol tartrate 50 mg Tablet PO (20:55)
[2021-06-02] VITALS (73 sets, daily range): BP systolic 119–194; BP diastolic 60–136; PULSE 69–102; RESP 15–33; TEMP 36.1–36.8; O2SAT 74–97; BMI 41.9
[2021-06-02] MEDS: FUROsemide 10 mg/mL SDV 10mL 60 MG IVP ×3 (00:46→16:59)
[2021-06-02] MEDS: digoxin 250 mcg/ml INJ 2 mL 300 MCG IVP ×2 (00:48→05:21)
[2021-06-02] MEDS: ipratropium-albuterol 3 mL Neb INHALATION ×4 (03:07→20:56)
[2021-06-02] MEDS: enoxaparin 100 mg/mL Syringe SUBCUT ×2 (04:11→14:58)
[2021-06-02] MEDS: enoxaparin 30 mg/0.3 mL Syringe SUBCUT ×2 (04:11→14:58)
[2021-06-02 04:44] LABS: Basophils % 0.2 %; Hematocrit 50.7 % (37.0-47.0); Hemoglobin 16.7 g/dL (11.5-15.3); Lymphocytes # 0.4 10^3/uL (0.8-4.8); Lymphocytes % 4.3 %; Mean Corpuscular HGB Conc 32.9 g/dL (30.0-36.0); Mean Corpuscular Hemoglobin 30.8 pg (28.0-34.0); Mean Corpuscular Volume 93.4 fl (81-99); Mean Platelet Volume 11.4 fL (7.4-10.4); Monocytes # 0.8 10^3/uL (0.2-0.9); Monocytes % 8.5 %; Neutrophils # 7.87 10^3/uL (1.8-7.7); Nucleated Red Blood Cells % 0 %; Platelet Count 187 10^3/cmm (130-400); Red Blood Count 5.43 10^6/uL (4.1-5.3); Red Cell Distribution Width 13.2 % (12.1-15.1); White Blood Count 9.2 10^3/uL (4.0-10.0)
[2021-06-02 05:22] LABS: Alanine Aminotransferase 12 U/L (0-33); Albumin Level 2.8 g/dL (3.5-5.2); Alkaline Phosphatase 87 IU/L (35-105); Anion Gap 16.2 (5-19); Aspartate Amino Transferase 10 U/L (0-32); Blood Urea Nitrogen 38 mg/dL (8-23); Carbon Dioxide 26 mmol/L (22-29); Chloride 103 mmol/L (98-107); Globulin 3.2 g/dL (1.3-4.6); Glucose 357 mg/dL (65-115); Magnesium 1.9 mg/dL (1.7-2.3); Osmolality Calculated 315 mOsm/kg (285-295); Potassium 4.2 mmol/L (3.5-5.1); Sodium 141 mmol/L (136-145); Total Bilirubin 0.5 mg/dL (0.15-1.2)
[2021-06-02 05:23] LABS: D Dimer 5.04 ug/mIFEU (0-0.59)
[2021-06-02 05:32] LABS: C Reactive Protein 111.3 mg/L (0.0-4.9); NT Pro B Type Natriuretic Pept 856 pg/mL (0-450)
[2021-06-02 05:44] LABS: ABG PCO2 33.9 mmHg (35-45); Arterial Blood Gas Hematocrit 50.7 % (37-47); Base Excess ABG 3.4 mmol/L (-2.0-2.0); Blood Gas Allen Test Pos; Blood Gas Sample Site Radial, right; Blood Gas Sample Type Arterial; HCO3 ABG 26.2 mmol/L (22-26); Oxygen Device BIPAP; PO2 ABG 68.6 mmHg (80.0-100.0)
[2021-06-02 05:52] LABS: Ferritin 1596 ng/mL (15-150)
--- NOTE | 2021-06-02 06:00 | USCV_ITS ---
Laura Lynn Age: 76 Gender: F : 1945 Exam Date: 06/02/2021 06:22 Ordering Phys: Syd Salvador MD Technologist: [place] [facility] [place]: COVID SOB BP: 171 / 84 HR: 82 Rhythm: Sinus Technical Quality: Poor MEASUREMENTS (Male / Female) Normal Values 2D ECHO LV Diastolic Diameter PLAX 4.3 cm 4.2 - 5.9 / 3.9 - 5.3 cm LV Systolic Diameter PLAX 3.3 cm IVS Diastolic Thickness 1.4 cm 0.6 - 1.0 / 0.6 - 0.9 cm IVS Systolic Thickness 1.6 cm LVPW Diastolic Thickness 1.3 cm 0.6 - 1.0 / 0.6 - 0.9 cm LVPW Systolic Thickness 1.6 cm LVOT Diameter 2.0 cm LV Ejection Fraction MOD 2C 43.6 % LV Ejection Fraction 2C AL 43.7 % LA Diameter 3.5 cm LA Width 4.4 cm LA Height 6.5 cm RA Width 4.6 cm RA Height 7.2 cm Aorta at Sinotubular Diameter 2.5 cm DOPPLER AV Peak Velocity 140.0 cm/s LVOT Peak Velocity 103.0 cm/s AV Area Cont Eq vti 1.9 cm squared AV Area Cont Eq pk 2.3 cm squared MV Area PHT 5.0 cm squared Mitral E to A Ratio 3.3 MV E' Velocity 49.4 cm/s Mitral E to MV E' Ratio 20.3 Mitral E to LV E' Lateral Ratio 26.9 Mitral E to LV E' Septal Ratio 16.3 TR Peak Velocity 98.3 cm/s TR Peak Gradient 3.9 mmHg TV Peak E Velocity 73.0 cm/s Right Atrial Pressure 3.0 mmHg Pulmonary Artery Systolic Pressu 6.9 mmHg FINDINGS Left Ventricle Normal left ventricular cavity size. Normal left ventricular systolic function. No regional wall motion abnormalities. Left ventricular ejection fraction is estimated at 55 %. In the presence of atrial fibrillation diastolic function cannot be assessed accurately. Right Ventricle The right ventricle is normal in size and function. Right Atrium The right atrium is normal in size. Left Atrium The left atrium is normal in size. Mitral Valve Structurally normal mitral valve without significant stenosis or prolapse. There is no mitral regurgitation. Aortic Valve Severe aortic valve calcification. Mild restriction of aortic valve without significant stenosis. No regurgitation Tricuspid Valve Structurally normal tricuspid valve without significant stenosis or regurgitation. Pulmonary artery systolic pressure is normal. Pulmonic Valve Structurally normal pulmonic valve without significant stenosis. There is no pulmonic regurgitation. Pericardium Normal pericardium without effusion. Aorta Normal ascending aorta dimension. CONCLUSIONS 1-Normal left ventricular cavity size. Normal left ventricular systolic function. No regional wall motion abnormalities. Left ventricular ejection fraction is estimated at 55 %. In the presence of atrial fibrillation diastolic function cannot be assessed accurately. 2-Severe aortic valve calcification. Mild restriction of aortic valve without significant stenosis. No regurgitation. 3-There is no pericardial effusion. 4-Pulmonary artery systolic pressure is within normal limits. 5-Right atrial pressure is around 5 mm of mercury. 6-There are no prior echocardiogram studies to compare. Maura Palacios MD (Electronically Signed) Final Date: 02 June 2021 21:34 S
--- NOTE | 2021-06-02 06:00 | XRR_ITS ---
PROCEDURE INFORMATION: Exam: XR Chest Exam date and time: 06/02/2021 6:00 AM Age: 76 years old Clinical indication: Shortness of breath; Additional info: Covid TECHNIQUE: Imaging protocol: XR of the chest. Views: 1 view. COMPARISON: CR (CHEST, ) 06/01/2021 10:41 AM FINDINGS: Lungs: There is redistribution and indistinctness of the pulmonary vasculature, in association with haziness of the lungs and small bilateral pleural effusions, which in the setting of cardiomegaly is consistent with pulmonary edema. Pneumonia should be excluded clinically. No pneumothorax. Pleural spaces: See Lungs finding. Heart/Mediastinum: Stable cardiomediastinal silhouette. Bones/joints: Degenerative changes of the spine seen. XR/XR chest 1V portable [id number] IMPRESSION: Nonspecific imaging findings, which can be seen with pulmonary edema or pneumonia. Clinical correlation is recommended.
--- NOTE | 2021-06-02 06:53 | PC.NURSE ---
Shift Note Frequent safety and comfort rounds continue. Orders and/or nursing care completed as indicated. Patient monitored for response to intervention and treatment(s). Education provided includes[]. Patient and/or policy services representative [ResponseToTeaching]. Will continue to monitor. No significant changes with the patient. Her oxygen saturation stayed mostly in the low 90's while on BiPAP at 85%. The patient had a significant amount of urine output and temperatures were within normal limits.
[2021-06-02] MEDS: famotidine 20 mg/2 mL INJ IVP ×2 (08:09→19:54)
[2021-06-02] MEDS: dexamethasone 4 mg/mL INJ 6 MG IVP (08:09)
[2021-06-02] MEDS: benzonatate 100 mg Capsule PO ×3 (08:10→19:54)
[2021-06-02] MEDS: azithromycin 250 mg Tablet 500 MG PO (08:11)
[2021-06-02] MEDS: ferrous gluconate 324 mg Tablet PO ×2 (08:11→16:59)
[2021-06-02] MEDS: dilTIAZem 30 mg Tablet PO ×4 (08:11→19:54)
[2021-06-02] MEDS: ascorbic acid 500 mg Tablet PO ×2 (08:11→17:00)
[2021-06-02] MEDS: metoprolol tartrate 50 mg Tablet PO ×2 (08:11→19:53)
[2021-06-02] MEDS: zinc gluconate 50 mg Tablet PO (08:12)
--- NOTE | 2021-06-02 08:45 | P.PN_ITS ---
Subjective Subjective: Interval history: Very hard of hearing, left ear is better. States she is doing okay. Denies any pain. Breathing is okay with BiPAP. States probably sometime later today will need to have a BM. Denies nausea or vomiting. Vitals/I&O/Wt Last Vital Signs Temp 98.2 F 06/02/21 08:00 Pulse 80 06/02/21 08:00 Resp 24 H 06/02/21 08:00 BP 148/94 06/02/21 08:00 Pulse Ox 89 L 06/02/21 08:00 06/01/21 06/02/21 06/02/21 22:59 06:59 14:59 Intake Total 334.849 / 2392.849 152.833 / 2545.682 Output Total 1550 / 1550 2500 / 4050 Balance -1215.151 / 842.849 -2347.167 / -1504.318 Weight last 48 hrs Weight 114.362 kg Weight 131.542 kg Weight 131.542 kg Physical Exam Const: COMMON NORMALS: no acute distress and patient oriented x3 NUTRITIONAL APPEARANCE: obese OTHER: YAVAPAI-PRESCOTT HENMT: COMMON NORMALS: oropharynx normal Neck/C-Spine: COMMON NORMALS: no JVD Resp: COMMON NORMALS: normal respiratory effort and clear to auscultation bilaterally AUSCULTATION: clear to auscultation bilaterally OTHER: BiPAP Cardio: COMMON NORMALS: no JVD, regular rhythm, S1 normal heart sound present, S2 normal heart sound present and No murmurs present (Cardio) RHYTHM: regular rhythm HEART SOUNDS: S1 normal heart sound present and S2 normal heart sound present GI: COMMON NORMALS: Normal to inspection, nondistended, normoactive bowel sounds present, Soft to palpation and non-tender PALPATION: Yes Soft to palpation Extremity: COMMON NORMALS: no joint enlargement GENERAL: Yes edema (trace) Neuro: COMMON NORMALS: patient oriented x3 and moves all extremities Skin: COMMON NORMALS: no rashes or lesions noted GENERAL SKIN EXAM: no rashes or lesions noted Data : 06/02/21 04:10 06/02/21 04:10 Micro: Microbiology 06/01/21 10:38 Urine Culture - Preliminary Urine,Clean Catch Gram Negative Rods 06/01/21 10:38 Bacterial Antigens - Final Urine Kidney 06/01/21 10:38 Legionella Urinary Antigen - Final Unknown Source 06/01/21 10:25 Blood Culture - Preliminary Blood SPECIMEN COLLECTED 06/01/21 10:35 Blood Culture - Preliminary Blood SPECIMEN COLLECTED A&P Assessment and plan (1) ARDS (adult respiratory distress syndrome): Secondary to severe COVID-19, acute CHF possibly tachycardia induced, underlying pulmonary hypertension and LISANDRA. Noted D-dimer elevation. On anticoagulation. CTA was negative for PE. Continue Decadron. Completed course of remdesivir. Continues empirically on ceftriaxone, azithromycin. Currently still requiring BiPAP support, 85% FiO2, maintain saturations in the low 90s. Cooperates well with BiPAP. Status: Acute (2) COVID-19: Status: Acute (3) Atrial fibrillation with RVR: Continue p.o. Cardizem. Wean down Cardizem drip. Currently down to 5 mg/h. Metoprolol. Anticoagulation. Status: Acute (4) LISANDRA (obstructive sleep apnea): Status: Acute (5) Pulmonary HTN: Status: Acute (6) UTI (urinary tract infection): GNR. Continue ceftriaxone. Follow-up ID and sensitivity on culture. Status: Acute Additional A&P Information Acute CHF: Possibly tachycardia induced. Reported on admission. Lasix 60 mg every 12 IV. Follow-up TTE, pending interpretation. Acute kidney injury: Creatinine 1.1. Baseline creatinine normal. Most likely a combination of mild CRS and sepsis from Covid. We will continue to monitor. Lasix as above. Medical reconciliation done for nephrotoxic drugs. For now hold off on lisinopril. Hypertension: Continue metoprolol, Cardizem. Lisinopril normal. Hold for now. YAVAPAI-PRESCOTT: Very hard of hearing, states left ear is usually somewhat better than the right. Attestations Medical Necessity Statement*: Continue admission for assessment of management of severe COVID-19, hypoxic respiratory failure, position of control of A. fib with RVR, weaning off Cardizem drip, treatment of UTI. Coding Level of Care Code Acute Property Management Intern for [facility] Diagnoses ARDS (adult respiratory distress syndrome) J80 COVID-19 U07.1 Atrial fibrillation with RVR I48.91 LISANDRA (obstructive sleep apnea) G47.33 Pulmonary HTN I27.20 UTI (urinary tract infection) N39.0
[2021-06-02] MEDS: budesonide 0.5 mg/2 mL Neb INHALATION ×2 (09:09→20:56)
--- NOTE | 2021-06-02 09:50 | PC.CHAP ---
Pastoral Care Encounter/Spiritual Assessment Type of Contact [] Declined international account executive visit [] Patient/Family/Request visit [] Outpatient visit [] Follow-up visit [] Physician referral [] Code/Alert [x] Routine visit [] Staff referral [] Actively dying [] Patient sleeping [] Family support [] [] Out of room [] Palliative care [] [] Receiving care in room [] Pre-surgical visit [] Trauma [] Long length of stay [x] ICU visit [x] Other: covid Relational/Emotional Strength [] Patient feels connected with others/family/visitors/staff [] Distress [] Loneliness/isolation [] Abandonment Spirituality of Patient [] Person of Radha [] Attends Zoroastrian of their Radha [] Believes in Prayer [] Reads Bible or Restoration materials [] There are Spiritual issues to be addressed Full Stack Developer Interventions [x] Prayer [] Active listening [] Non-anxious presence [] Spiritual/emotional support [] Crisis/trauma care [] Spiritual counseling [] Bereavement support [] Provided bereavement packet [] Provided Bible/devotional materials [] Provided toy/stuffed animal, coloring book to patient or family member [] Provided Communion [] Anointing/[place] [] Salvation [x] Completed spiritual assessment [] Other: Impact on Illness or Injury [] Angry [] Fearful [] Anxious [] Often cries [] Exhaustion [] Unable to work [] Unable to attend cheondoism [] Unable to walk/stand [] Unable to read [] Unable to drive [] Unable to eat/drink [] Unable to sleep [] Unable to be with family [] Patient intubated [] Other: Summary Time spent with patient
[2021-06-02] MEDS: cefTRIAXone 1,000 MG in sodium chloride 0.9% (plus) 50 ML 100 MG IV (11:00)
--- NOTE | 2021-06-02 14:50 | PC.RESP ---
PULMONARY REHAB INFORMATION SENT TO PATIENT.
[2021-06-02] MEDS: remdesivir 100 MG in sodium chloride 0.9% (100 ml) 100 ML IV (16:59)
[2021-06-02] MEDS: LORazepam 2 mg/mL INJ 1 mL 0.5 MG IVP (22:02)
[2021-06-02 22:16] LABS: ABG PCO2 38.1 mmHg (35-45); ABG PH Result 7.46 (7.35-7.45); Arterial Blood Gas Hematocrit 53.8 % (37-47); Base Excess ABG 3.2 mmol/L (-2.0-2.0); Blood Gas Allen Test Pos; Blood Gas Sample Type Arterial; HCO3 ABG 27.1 mmol/L (22-26); HGB O2 Sat 82.9 % (95-100); Ionized Calcium Level - ABG 1.2 mmol/L (1.1-1.4); Methemoglobin 0.1 % (0.4-1.5); Oxygen Saturation ABG 83.8; PO2 ABG 47.5 mmHg (80.0-100.0); Potassium Level - ABG 3.9 mmol/L (3.5-5.0); Total Hemoglobin 17.6 g/dL (12-16)
[2021-06-02 22:17] LABS: Blood Gas Sample Site Radial, right; Oxygen Device NRB
[2021-06-02] MEDS: morphine 4 mg/mL SDV 1 mL 1 MG IVP (22:30)
[2021-06-02] MEDS: dexmedeTOMIDine 0.9 % NaCL 400 MCG/100 ML PREMIX 5.72 MCG IV (23:15)
[2021-06-03] VITALS (57 sets, daily range): BP systolic 79–139; BP diastolic 46–86; PULSE 61–103; RESP 12–25; TEMP 35.9–36.9; O2SAT 83–97; BMI 41.5
[2021-06-03 01:55] LABS: Glucose Point of Care 452 mg/dL (70-110)
[2021-06-03] MEDS: enoxaparin 100 mg/mL Syringe SUBCUT ×2 (03:24→13:51)
[2021-06-03] MEDS: enoxaparin 30 mg/0.3 mL Syringe SUBCUT ×2 (03:24→13:51)
[2021-06-03] MEDS: ipratropium-albuterol 3 mL Neb INHALATION ×4 (03:32→22:41)
[2021-06-03 03:59] LABS: Basophils % 0.2 %; Hematocrit 53.2 % (37.0-47.0); Hemoglobin 16.3 g/dL (11.5-15.3); Lymphocytes # 0.5 10^3/uL (0.8-4.8); Lymphocytes % 4.2 %; Mean Corpuscular HGB Conc 30.6 g/dL (30.0-36.0); Mean Corpuscular Hemoglobin 30.9 pg (28.0-34.0); Mean Corpuscular Volume 100.9 fl (81-99); Mean Platelet Volume 11.1 fL (7.4-10.4); Monocytes # 0.8 10^3/uL (0.2-0.9); Monocytes % 6.8 %; Neutrophils # 10.56 10^3/uL (1.8-7.7); Neutrophils % 88.2 %; Nucleated Red Blood Cells % 0 %; Platelet Count 165 10^3/cmm (130-400); Red Blood Count 5.27 10^6/uL (4.1-5.3); Red Cell Distribution Width 12.9 % (12.1-15.1)
[2021-06-03 04:45] LABS: Alanine Aminotransferase 10 U/L (0-33); Albumin Level 2.6 g/dL (3.5-5.2); Alkaline Phosphatase 88 IU/L (35-105); Blood Urea Nitrogen 55 mg/dL (8-23); Calcium 8.5 mg/dL (8.5-10.5); Carbon Dioxide 21 mmol/L (22-29); Chloride 99 mmol/L (98-107); Globulin 3.8 g/dL (1.3-4.6); NT Pro B Type Natriuretic Pept 1875 pg/mL (0-450); Osmolality Calculated 318 mOsm/kg (285-295); Sodium 135 mmol/L (136-145); Total Bilirubin 0.4 mg/dL (0.15-1.2); Total Protein 6.4 g/dL (6.6-8.7)
[2021-06-03 04:46] LABS: Anion Gap 19.7 (5-19); Aspartate Amino Transferase 10 U/L (0-32); Potassium 4.7 mmol/L (3.5-5.1)
[2021-06-03 04:48] LABS: Glucose 503 mg/dL (65-115)
[2021-06-03 04:57] LABS: Ferritin 1819 ng/mL (15-150)
[2021-06-03] MEDS: FUROsemide 10 mg/mL SDV 10mL 60 MG IVP (05:12)
--- NOTE | 2021-06-03 05:41 | PC.NURSE ---
Shift Note Frequent safety and comfort rounds continue. Orders and/or nursing care completed as indicated. Patient monitored for response to intervention and treatment(s). Education provided includes oxygen requirements. Patient needs further reinforcement. Patient remains on BIPAP at 100% FiO2. Meza catheter drained 740 mls of pink colored urine all evening. Patient is A & O x4. When awake patient is very agitated and pulls at BIPAP mask. Since starting Precedex patient has been resting comfortably. Left forearm IV has Precedex infusing at 0.2 mcg/kg/hr. Right AC IV has Cardizem infusing at 5 mg/hr. No wounds or skin issues noted at this time. Will continue to monitor.
[2021-06-03 07:05] LABS: Glucose Point of Care 447 mg/dL (70-110)
[2021-06-03] MEDS: budesonide 0.5 mg/2 mL Neb INHALATION ×2 (08:15→22:41)
[2021-06-03] MEDS: famotidine 20 mg/2 mL INJ IVP ×2 (08:23→21:37)
[2021-06-03] MEDS: dexamethasone 4 mg/mL INJ 6 MG IVP (08:23)
[2021-06-03] MEDS: cefTRIAXone 1,000 MG in sodium chloride 0.9% (plus) 50 ML 10 MG IV (11:12)
[2021-06-03 11:26] LABS: Glucose Point of Care 368 mg/dL (70-110)
--- NOTE | 2021-06-03 11:38 | PC.NURSE ---
Late entry 06/02/21 1800 Shift Note Frequent safety and comfort rounds continue. Orders and/or nursing care completed as indicated. Patient monitored for response to intervention and treatment(s). Education provided includes treatment plan, medication regimen and need for bipap. Pt unwilling at times to wear bipap, pt agreed around 1700 to wear bipap. She continually demands water, education provided to her that the need for oxygen is greater than her need for water at this time. Will require frequent reminders. On bipap, 100% FIO2. Will continue to monitor.
--- NOTE | 2021-06-03 11:41 | PC.NURSE ---
Pt resting in bed. No s/s of pain or SOB. precedex gtt infusing per orders. Pt stirs slightly with care but does not wake enough to answer questions or follow commands. VSS at this time. Cardizem gtt infusing. PO meds not given d/t lethargy. aware. Will monitor.
[2021-06-03] MEDS: dexmedeTOMIDine 0.9 % NaCL 400 MCG/100 ML PREMIX 5.72 MCG IV (12:19)
[2021-06-03 14:03] LABS: Erythrocyte Sedimentation Rate 11 mm/hr (0-15)
[2021-06-03] MEDS: LORazepam 2 mg/mL INJ 1 mL 0.5 MG IVP (17:05)
[2021-06-03] MEDS: remdesivir 100 MG in sodium chloride 0.9% (100 ml) 100 ML IV (17:06)
[2021-06-03 17:52] LABS: Glucose Point of Care 243 mg/dL (70-110)
--- NOTE | 2021-06-03 18:22 | PC.NURSE ---
Shift Note Frequent safety and comfort rounds continue. Orders and/or nursing care completed as indicated. Patient monitored for response to intervention and treatment(s). Education provided includes treatment plan and medication regimen. Family verbalizes understanding. Pt becomes combative when awake, ativan given per orders and precedex increased. Cardizem increased to 10mg/min due to increased HR and irregular rhythm. Attempted to give pt drink of water and PO meds, pt choked but was able to cough up all meds and fluids. notified. VSS at this time. Will continue to monitor.
--- NOTE | 2021-06-03 19:25 | PM.PN ---
Subjective Subjective: Interval history: Overnight she became restless. Had to be restarted on Precedex. Received Ativan. Resting during my visit. Slept through the morning tolerating BiPAP. This afternoon again becoming restless. Vitals/I&O/Wt Last Vital Signs Temp 98.1 F 06/03/21 12:00 Pulse 86 06/03/21 18:18 Resp 18 06/03/21 17:00 BP 118/86 06/03/21 17:00 Pulse Ox 94 06/03/21 18:18 06/03/21 06/03/21 06/03/21 06:59 14:59 22:59 Intake Total 193.158 / 193.158 200.681 / 393.839 Output Total 740 / 3340 300 / 300 Balance -740 / -2768.25 193.158 / 193.158 -99.319 / 93.839 Weight last 48 hrs Weight 113.398 kg Weight 114.362 kg Physical Exam Const: COMMON NORMALS: no acute distress and patient oriented x3 NUTRITIONAL APPEARANCE: obese OTHER: YOMBA SHOSHONE HENMT: COMMON NORMALS: oropharynx normal Neck/C-Spine: COMMON NORMALS: no JVD Resp: COMMON NORMALS: normal respiratory effort and clear to auscultation bilaterally AUSCULTATION: clear to auscultation bilaterally OTHER: BiPAP Cardio: COMMON NORMALS: no JVD, regular rhythm, S1 normal heart sound present, S2 normal heart sound present and No murmurs present (Cardio) RHYTHM: regular rhythm HEART SOUNDS: S1 normal heart sound present and S2 normal heart sound present GI: COMMON NORMALS: Normal to inspection, nondistended, normoactive bowel sounds present, Soft to palpation and non-tender PALPATION: Yes Soft to palpation Extremity: COMMON NORMALS: no joint enlargement GENERAL: Yes edema (trace) Neuro: COMMON NORMALS: patient oriented x3 and moves all extremities Skin: COMMON NORMALS: no rashes or lesions noted GENERAL SKIN EXAM: no rashes or lesions noted Data : 06/03/21 03:53 06/03/21 03:53 Micro: Microbiology 06/01/21 10:38 Urine Culture - Final Urine,Clean Catch Escherichia coli A&P Assessment and plan (1) ARDS (adult respiratory distress syndrome): Became restless overnight. Restarted on Precedex. Continue Precedex for episodes of anxiety, agitation. Haldol as needed. Avoid benzodiazepines. Discussed with her , if anxiety or agitation become a barrier to her tolerating NIV or high flow oxygen, or if oxygenation worsening intubation would be the next step. He is agreeable for this eventuality. In case she is significantly declining in condition he would also like to come and visit her in the hospital. He has recently completed his quarantine for COVID-19. Continue Decadron. Secondary to severe COVID-19, acute CHF possibly tachycardia induced, underlying pulmonary hypertension and LISANDRA. Noted D-dimer elevation. On anticoagulation. CTA was negative for PE. Continue Decadron. Completed course of remdesivir. Continues empirically on ceftriaxone, azithromycin. Currently still requiring BiPAP support, 85% FiO2, maintain saturations in the low 90s. Cooperates well with BiPAP. Status: Acute (2) COVID-19: Status: Acute (3) Atrial fibrillation with RVR: A. fib with RVR noted today to be restarted on Cardizem drip, weaning down. Wean off drip and continue p.o. Cardizem. Metoprolol. Anticoagulation. Status: Acute (4) LISANDRA (obstructive sleep apnea): Status: Acute (5) Pulmonary HTN: Status: Acute (6) UTI (urinary tract infection): E. coli sensitive to cephalosporins. Continue ceftriaxone. Status: Acute Additional A&P Information Acute CHF: Acute diastolic CHF. Hold additional Lasix as she is becoming prerenal. Monitor volume status. Possibly tachycardia induced. TTE with normal ejection fraction. Acute kidney injury: Creatinine 1.3. Hold further diuretic. Baseline creatinine normal. Most likely a combination of mild CRS and sepsis from Covid. Medical reconciliation done for nephrotoxic drugs. For now hold off on lisinopril. Hypertension: At goal. YOMBA SHOSHONE: Very hard of hearing, states left ear is usually somewhat better than the right. Attestations Medical Necessity Statement*: Continue admission for assessment of management of hypoxic respiratory failure due to severe COVID-19, A. fib with RVR. Coding Level of Care Code Acute Chemical Process Engineer for [facility] Fwd Diagnoses ARDS (adult respiratory distress syndrome) J80 COVID-19 U07.1 Atrial fibrillation with RVR I48.91 LISANDRA (obstructive sleep apnea) G47.33 Pulmonary HTN I27.20 UTI (urinary tract infection) N39.0
[2021-06-03] MEDS: dexmedeTOMIDine 0.9 % NaCL 400 MCG/100 ML PREMIX 14.3 MCG IV (20:16)
[2021-06-03 21:44] LABS: Glucose Point of Care 254 mg/dL (70-110)
--- NOTE | 2021-06-03 22:00 | PC.NURSE ---
Non Admin Evening PO Meds Dr. Snow at bedside, gave verbal orders to hold PO medications this evening due to patient being BIPAP dependant.
[2021-06-04] VITALS (61 sets, daily range): BP systolic 87–143; BP diastolic 45–112; PULSE 59–125; RESP 12–24; TEMP 35.6–36.5; O2SAT 87–100; BMI 41.6
[2021-06-04] MEDS: dexmedeTOMIDine 0.9 % NaCL 400 MCG/100 ML PREMIX 14.3 MCG IV ×3 (01:01→13:30)
[2021-06-04] MEDS: ipratropium-albuterol 3 mL Neb INHALATION ×4 (03:03→20:06)
[2021-06-04] MEDS: enoxaparin 30 mg/0.3 mL Syringe SUBCUT (03:17)
[2021-06-04] MEDS: enoxaparin 100 mg/mL Syringe SUBCUT (03:18)
[2021-06-04 04:56] LABS: Basophils % 0.2 %; Hematocrit 54.8 % (37.0-47.0); Lymphocytes # 0.3 10^3/uL (0.8-4.8); Lymphocytes % 2.5 %; Mean Corpuscular HGB Conc 32.8 g/dL (30.0-36.0); Mean Corpuscular Hemoglobin 30.4 pg (28.0-34.0); Mean Corpuscular Volume 92.4 fl (81-99); Mean Platelet Volume 12.3 fL (7.4-10.4); Monocytes # 0.6 10^3/uL (0.2-0.9); Monocytes % 4.8 %; Neutrophils # 10.74 10^3/uL (1.8-7.7); Nucleated Red Blood Cells % 0 %; Platelet Count 165 10^3/cmm (130-400); Red Blood Count 5.93 10^6/uL (4.1-5.3); Red Cell Distribution Width 12.6 % (12.1-15.1); White Blood Count 11.7 10^3/uL (4.0-10.0)
[2021-06-04 05:15] LABS: Albumin Level 2.6 g/dL (3.5-5.2); Alkaline Phosphatase 83 IU/L (35-105); Blood Urea Nitrogen 74 mg/dL (8-23); C Reactive Protein 58.6 mg/L (0.0-4.9); Calcium 8.9 mg/dL (8.5-10.5); Carbon Dioxide 20 mmol/L (22-29); Chloride 101 mmol/L (98-107); Glucose 286 mg/dL (65-115); Magnesium 2.4 mg/dL (1.7-2.3); NT Pro B Type Natriuretic Pept 544 pg/mL (0-450); Osmolality Calculated 320 mOsm/kg (285-295); Sodium 139 mmol/L (136-145); Total Bilirubin 0.3 mg/dL (0.15-1.2); Total Protein 6.6 g/dL (6.6-8.7)
[2021-06-04 05:16] LABS: Anion Gap 22.1 (5-19); Potassium 4.1 mmol/L (3.5-5.1)
[2021-06-04 05:17] LABS: Alanine Aminotransferase 11 U/L (0-33); Aspartate Amino Transferase 23 U/L (0-32)
[2021-06-04 05:32] LABS: Ferritin 1610 ng/mL (15-150)
--- NOTE | 2021-06-04 06:00 | XR_ITS ---
WS: [id number] Exam: XR chest 1V portable [id number] Date/Time of Exam: 06/04/2021 4:19 AM Reason For Exam: covid Comparison 06/02/2021. There is been significant clearing of pulmonary infiltrates since previous exam. Mild residual infilt rates are seen in the bilateral lower lung zones. Mild cardiac enlargement noted. No pneumothorax or pleural effusion. The mediastinum is not widened. Monitoring leads superimpose the chest. XR/XR chest 1V portable [id number] IMPRESSION: 1. Significant clearing of bilateral infiltrates since prior study. There are s till residual infiltrates remaining in the lower lung zones. 2. Mild cardiac enlargement.
[2021-06-04 06:25] LABS: D Dimer 2.47 ug/mIFEU (0-0.59)
--- NOTE | 2021-06-04 06:36 | PC.NURSE ---
Shift Note Frequent safety and comfort rounds continue. Orders and/or nursing care completed as indicated. Patient monitored for response to intervention and treatment(s). Education provided includes Precedex. Patient needs further reinforcement. Meza catheter drained 325 mls of dark rosa urine all evening. Patient remains on the BIPAP at 70% FiO2. Left AC IV is saline locked at this time. Right AC IV has Precedex and Cardizem infusing please see MAR for infusion rates. Will continue to monitor.
[2021-06-04 08:03] LABS: Glucose Point of Care 276 mg/dL (70-110)
[2021-06-04] MEDS: budesonide 0.5 mg/2 mL Neb INHALATION ×2 (08:13→20:06)
--- NOTE | 2021-06-04 08:39 | PC.NURSE ---
Shift Note Frequent safety and comfort rounds continue. Orders and/or nursing care completed as indicated. Patient monitored for response to intervention and treatment(s). Education provided includes[oxygen saturation monitoring, bi-pap, and fall risk]. Patient and/or sales representative girls' apparel [Family was updated and verbally stated they understood.]. Will continue to monitor. Received bed side shift report from off going nurse. Pt's plan of care reviewed. Pt resting in bed. Respirations are even and unlabored. No s/sx of distress noted. Pt is on bi-pap at 90% Fi02 and saturating 92-94%. Pt appears to be resting comfortably at this time. Pt is on precedex at 0.5mcg/kg/hr. Off going nurse stated that when pt wakes up she comes severely restless/agitated. Pt was seen by hospitalist this morning and what meds that could be changed were changed to IV instead of PO. Pt has been going in and out of a-fib rvr with heart rates into the 160s. IV metoprolol tartrate was ordered 5mg IV q4 hour. Bed in lowest and locked position, call light within reach, x's 3 rails up. Will continue to monitor pt.
[2021-06-04] MEDS: morphine 4 mg/mL SDV 1 mL 1 MG IVP (09:21)
[2021-06-04] MEDS: metoprolol tartrate 1 mg/1 mL SDV 5 mL 5 MG IVP ×4 (09:22→20:12)
[2021-06-04] MEDS: famotidine 20 mg/2 mL INJ IVP ×2 (09:23→20:30)
[2021-06-04] MEDS: dexamethasone 4 mg/mL INJ 6 MG IVP (09:23)
--- NOTE | 2021-06-04 09:57 | PC.SOCIAL ---
IMM Not Updated Pg. 2 of IMM not updated. Patient on bipap; not anticipated to discharge within 48hours.
--- NOTE | 2021-06-04 10:08 | PC.NUTR ---
Nutrition recommendations: Pt NPO day 4, with decreased po intake in 3 days prior to admit as well. Choking incident 06/03. If unable to consume oral diet within 1-3 days, recommend consideration of enteral nutrition if consistent with patient's goals of care. Recommend Pulmocare 1.5, starting at 10 ml/hr, increasing by 10 ml/hr q 8 hrs to goal rate of 50 ml/hr, to provide 1800 kcal, 76 g protein, and 942 ml H2O. Suggest minimum of 30-60 ml H2O flush q 4 hrs, or per MD discretion. See full RD assessment for further details.
--- NOTE | 2021-06-04 10:28 | PC.CHAP ---
Pastoral Care Encounter/Spiritual Assessment Type of Contact [] Declined sports health club membership advisors visit [] Patient/Family/Request visit [] Outpatient visit [] Follow-up visit [] Physician referral [] Code/Alert [x] Routine visit [] Staff referral [] Actively dying [] Patient sleeping [] Family support [] [] Out of room [] Palliative care [] [] Receiving care in room [] Pre-surgical visit [] Trauma [] Long length of stay [x] ICU visit [] Other: Relational/Emotional Strength [] Patient feels connected with others/family/visitors/staff [] Distress [] Loneliness/isolation [] Abandonment Spirituality of Patient [] Person of Radha [] Attends Sikh of their Radha [] Believes in Prayer [] Reads Bible or Yazidi materials [] There are Spiritual issues to be addressed Taxicab Driver Interventions [x] Prayer [] Active listening [] Non-anxious presence [] Spiritual/emotional support [] Crisis/trauma care [] Spiritual counseling [] Bereavement support [] Provided bereavement packet [] Provided Bible/devotional materials [] Provided toy/stuffed animal, coloring book to patient or family member [] Provided Communion [] Anointing/[place] [] Salvation [x] Completed spiritual assessment [] Other: Impact on Illness or Injury [] Angry [] Fearful [] Anxious [] Often cries [] Exhaustion [] Unable to work [] Unable to attend faith [] Unable to walk/stand [] Unable to read [] Unable to drive [] Unable to eat/drink [] Unable to sleep [] Unable to be with family [] Patient intubated [] Other: Summary Time spent with patient
--- NOTE | 2021-06-04 10:50 | P.PN_ITS ---
Subjective Subjective: Interval history: Resting. Appears calm. Occasionally shifting positions. Occasional moan. Vitals/I&O/Wt Last Vital Signs Temp 97.7 F 06/04/21 08:00 Pulse 125 H 06/04/21 09:00 Resp 22 H 06/04/21 09:21 BP 123/94 06/04/21 09:00 Pulse Ox 94 06/04/21 09:21 06/03/21 06/04/21 06/04/21 22:59 06:59 14:59 Intake Total 247.871 / 441.029 168.842 / 609.871 97.478 / 97.478 Output Total 300 / 300 325 / 625 Balance -52.129 / 141.029 -156.158 / -15.129 97.478 / 97.478 Weight last 48 hrs Weight 113.511 kg Weight 113.398 kg Physical Exam Const: COMMON NORMALS: no acute distress and patient oriented x3 NUTR ITIONAL APPEARANCE: obese OTHER: [place] HENMT: COMMON NORMALS: oropharynx normal Neck/C-Spine: COMMON NORMALS: no JVD Resp: COMMON NORMALS: normal respiratory effort and clear to auscultation bilaterally AUSCULTATION: clear to auscultation bilaterally OTHER: BiPAP Cardio: COMMON NORMALS: no JVD, regular rhythm, S1 normal heart sound present, S2 normal heart sound present and No murmurs present (Cardio) RHYTHM: regular rhythm HEART SOUNDS: S1 normal heart sound present and S2 normal heart sound present GI: COMMON NORMALS: Normal to inspection, nondistended, normoactive bowel sounds present, Soft to palpation and non-tender PALPATION: Yes Soft to palpation Extremity: COMMON NORMALS: no joint enlargement GENERAL: Yes edema (trace) Neuro: COMMON NORMALS: patient oriented x3 and moves all extremities Skin: COMMON NORMALS: no rashes or lesions noted GENERAL SKIN EXAM: no rashes or lesions noted Data : 06/04/21 04:20 06/04/21 04:20 Micro: Microbiology 06/01/21 10:38 Urine Culture - Final Urine,Clean Catch Escherichia coli A&P Assessment and plan (1) ARDS (adult respiratory distress syndrome): So far no further episodes of restlessness. Working well with BiPAP. Transiently weaned down to as low as 65% FiO2, however, again with A. fib with RVR, saturation worsened somewhat and was a saturating 87-88. FiO2 increased up to 90% for now while we are working on getting her heart rate better. Is showing good clearing of infiltrates bilaterally on repeat chest x-ray. Continue Decadron. Secondary to severe COVID-19, acute CHF possibly tachycardia induced, underlying pulmonary hypertension and LISANDRA. Noted D-dimer elevation. On anticoagulation. CTA was negative for PE. Continue Decadron. Completed course of remdesivir. Continues empirically on ceftriaxone, azithromycin. Currently still requiring BiPAP support, 85% FiO2, maintain saturations in the low 90s. Cooperates well with BiPAP. Status: Acute (2) COVID-19: Status: Acute (3) Atrial fibrillation with RVR: Cardizem drip to be increased up to 10 mg/h. Received a Cardizem bolus. Heart rate still 130s-140s. Did not get p.o. metoprolol yesterday. Will transition to IV metoprolol. Start with 5 mg and continue every 4 hours, will titrate from there. Attempt to wean down Cardizem drip. A. fib with RVR noted today to be restarted on Cardizem drip, weaning down. Continue p.o. Cardizem. Metoprolol. Anticoagulation. Status: Acute (4) LISANDRA (obstructive sleep apnea): Status: Acute (5) Pulmonary HTN: Status: Acute (6) UTI (urinary tract infection): E. coli sensitive to cephalosporins. Continue ceftriaxone. Status: Acute Additional A&P Information Acute CHF: Acute diastolic CHF. Hold additional Lasix as she is becoming prerenal. Monitor volume status. Possibly tachycardia induced. TTE with normal ejection fraction. Acute kidney injury: Creatinine 1.4. Diuretics on hold. Acute encephalopathy: Multifactorial related to infection, hypoxia, ICU admission. Continue Precedex. Haldol as needed if becomes agitated. Avoid benzos. Baseline creatinine normal. Most likely a combination of mild CRS and sepsis from Covid. Medical reconciliation done for nephrotoxic drugs. For now hold off on lisinopril. Hypertension: At goal. [place]: Very hard of hearing, states left ear is usually somewhat better than the right. Attestations Medical Necessity Statement*: Continue admission for assessment of management of hypoxic respiratory failure with severe COVID-19. Coding Level of Care Code Acute Ict Project Manager for Chg Fwd Diagnoses ARDS (adult respiratory distress syndrome) J80 COVID-19 U07.1 Atrial fibrillation with RVR I48.91 LISANDRA (obstructive sleep apnea) G47.33 Pulmonary HTN I27.20 UTI (urinary tract infection) N39.0
[2021-06-04] MEDS: cefTRIAXone 1,000 MG in sodium chloride 0.9% (plus) 50 ML 100 MG IV (12:16)
[2021-06-04 12:43] LABS: Glucose Point of Care 339 mg/dL (70-110)
[2021-06-04] MEDS: enoxaparin 120 mg/0.8 mL Syringe 110 MG SUBCUT (13:52)
[2021-06-04 13:57] LABS: Erythrocyte Sedimentation Rate 11 mm/hr (0-15)
[2021-06-04 18:06] LABS: Glucose Point of Care 202 mg/dL (70-110)
[2021-06-04] MEDS: remdesivir 100 MG in sodium chloride 0.9% (100 ml) 100 ML IV (18:06)
[2021-06-04 19:54] LABS: Glucose Point of Care 157 mg/dL (70-110)
[2021-06-04] MEDS: dexmedeTOMIDine 0.9 % NaCL 400 MCG/100 ML PREMIX 17.15 MCG IV (20:12)
[2021-06-04] MEDS: haloperidol inj 5 mg/mL INJ 1 mL 2 MG IM (22:23)
[2021-06-04] MEDS: dexmedeTOMIDine 0.9 % NaCL 400 MCG/100 ML PREMIX 28.59 MCG IV (23:33)
[2021-06-05] VITALS (64 sets, daily range): BP systolic 66–137; BP diastolic 39–96; PULSE 72–107; RESP 10–27; TEMP 35.9–36.5; O2SAT 83–97; BMI 41.5
--- NOTE | 2021-06-05 00:30 | PC.NURSE ---
Patient Agitated Patient agitated pulling at EKG wires on chest, IV lines, and BP cuff. Patient also pulled off BIPAP mask multiple times, O2 sats dropped to the 70's. Attempted to verbally deescalate patient and teach about need for BIPAP at this time. Patient then pulled BIPAP mask off again, received telephone orders for non-violent wrist restraints.
[2021-06-05] MEDS: metoprolol tartrate 1 mg/1 mL SDV 5 mL 5 MG IVP ×5 (02:30→21:35)
[2021-06-05] MEDS: dexmedeTOMIDine 0.9 % NaCL 400 MCG/100 ML PREMIX 28.59 MCG IV ×6 (02:31→20:33)
[2021-06-05] MEDS: enoxaparin 120 mg/0.8 mL Syringe 110 MG SUBCUT (02:31)
[2021-06-05] MEDS: ipratropium-albuterol 3 mL Neb INHALATION ×4 (03:27→20:10)
[2021-06-05 05:19] LABS: Basophils % 0.2 %; Hematocrit 52.7 % (37.0-47.0); Hemoglobin 17.2 g/dL (11.5-15.3); Lymphocytes # 0.3 10^3/uL (0.8-4.8); Lymphocytes % 2.6 %; Mean Corpuscular HGB Conc 32.6 g/dL (30.0-36.0); Mean Corpuscular Hemoglobin 30.2 pg (28.0-34.0); Mean Corpuscular Volume 92.6 fl (81-99); Mean Platelet Volume 12.4 fL (7.4-10.4); Monocytes # 0.5 10^3/uL (0.2-0.9); Monocytes % 4.2 %; Neutrophils # 10.91 10^3/uL (1.8-7.7); Neutrophils % 92.4 %; Nucleated Red Blood Cells % 0 %; Platelet Count 139 10^3/cmm (130-400); Red Blood Count 5.69 10^6/uL (4.1-5.3); Red Cell Distribution Width 13.1 % (12.1-15.1); White Blood Count 11.8 10^3/uL (4.0-10.0)
[2021-06-05 05:33] LABS: Albumin Level 2.7 g/dL (3.5-5.2); Alkaline Phosphatase 80 IU/L (35-105); Calcium 8.7 mg/dL (8.5-10.5); Carbon Dioxide 21 mmol/L (22-29); Chloride 108 mmol/L (98-107); Globulin 3.4 g/dL (1.3-4.6); Glucose 253 mg/dL (65-115); Osmolality Calculated 340 mOsm/kg (285-295); Sodium 147 mmol/L (136-145); Total Bilirubin 0.3 mg/dL (0.15-1.2); Total Protein 6.1 g/dL (6.6-8.7)
[2021-06-05 05:35] LABS: Alanine Aminotransferase 14 U/L (0-33); Anion Gap 22.5 (5-19); Aspartate Amino Transferase 32 U/L (0-32); Potassium 4.5 mmol/L (3.5-5.1)
[2021-06-05 05:53] LABS: Blood Urea Nitrogen 90 mg/dL (8-23)
--- NOTE | 2021-06-05 05:58 | PC.NURSE ---
Shift Note Frequent safety and comfort rounds continue. Orders and/or nursing care completed as indicated. Patient monitored for response to intervention and treatment(s). Education provided includes non violent wrist restraints. Patient needs further reinforcement. Right AC IV is saline locked and left forearm IV has Precedex infusing at 1 mcg/kg/hr. Patient remains confused at this time and is still attempting to pull at wires and BIPAP mask while in bilateral soft wrist restraints. Patient remains on BIPAP at 65% FiO2. Meza catheter drained 450 mls of tea colored urine overnight. Right groin is noticed to be red. Will continue to monitor.
[2021-06-05] MEDS: budesonide 0.5 mg/2 mL Neb INHALATION ×2 (09:02→20:10)
--- NOTE | 2021-06-05 09:08 | PM.PN ---
Subjective Subjective: Interval history: Has been confused. Last night noted to have an episode of agitation. Currently resting. Cooperates with BiPAP this morning. Vitals/I&O/Wt Last Vital Signs Temp 97.1 F L 06/05/21 04:00 Pulse 81 06/05/21 09:07 Resp 21 H 06/05/21 09:03 BP 125/75 06/05/21 05:30 Pulse Ox 97 06/05/21 09:07 06/04/21 06/05/21 06/05/21 22:59 06:59 14:59 Intake Total 243.835 / 577.013 204.896 / 781.909 Output Total 325 / 325 450 / 775 Balance -81.165 / 252.013 -245.104 / 6.909 Weight last 48 hrs Weight 113.143 kg Weight 113.511 kg Physical Exam Const: COMMON NORMALS: no acute distress NUTRITIONAL APPEARANCE: obese OTHER: Asleep HENMT: COMMON NORMALS: oropharynx normal Neck/C-Spine: COMMON NORMALS: no JVD Resp: COMMON NORMALS: normal respiratory effort and clear to auscultation bilaterally AUSCULTATION: clear to auscultation bilaterally OTHER: BiPAP Cardio: COMMON NORMALS: no JVD, regular rhythm, S1 normal heart sound present, S2 normal heart sound present and No murmurs present (Cardio) RHYTHM: regular rhythm HEART SOUNDS: S1 normal heart sound present and S2 normal heart sound present GI: COMMON NORMALS: Normal to inspection, nondistended, normoactive bowel sounds present, Soft to palpation and non-tender PALPATION: Yes Soft to palpation Extremity: COMMON NORMALS: no joint enlargement GENERAL: Yes edema (trace) Neuro: COMMON NORMALS: moves all extremities Skin: COMMON NORMALS: no rashes or lesions noted GENERAL SKIN EXAM: no rashes or lesions noted Data : 06/05/21 04:37 06/05/21 04:37 A&P Assessment and plan (1) ARDS (adult respiratory distress syndrome): Oxygenation overall has been gradually improving. Has been able to come down FiO2 to 65% and maintaining saturation up in the 90s. On 06/04 good clearing of infiltrates bilaterally on repeat chest x-ray. Continue Decadron. BiPAP support as tolerating. Family understand that intubation may still be imminent depending on her overall condition including mental status, cooperation with oxygen therapy/NIV. Secondary to severe COVID-19, acute CHF possibly tachycardia induced, underlying pulmonary hypertension and LISANDRA. Noted D-dimer elevation. Has been on full dose on anticoagulation. However, CTA was negative for PE and had had mild hematuria yesterday, today also noted to have some clots, worsening renal function. D-dimer has been decreasing as well. Discontinue full dose anticoagulation, changed to prophylactic dose. Completed course of remdesivir. Continues empirically on ceftriaxone, azithromycin. Status: Acute (2) SUE (acute kidney injury): Worsening creatinine and BUN, BUN up to 90 increasing over the last several days. Diuretics remain on hold. She has not had any meaningful oral intake. However, also noted yesterday mild hematuria, today heavy sediment and some clots. Discussed with nursing staff, exchange Meza catheter, and monitor, flush if needed. Transition from full dose anticoagulation to prophylactic dose as above. Given her also with gentle fluid challenge with 250 mL of LR. Status: Acute (3) COVID-19: Status: Acute (4) Atrial fibrillation with RVR: Today heart rate is much better, the 80s. Significant improved with IV scheduled metoprolol. Some concern regarding slow blood pressure last night, will space out further to every 6 hours. Has weaned off Cardizem drip. Anticoagulation. Status: Acute (5) LISANDRA (obstructive sleep apnea): Status: Acute (6) Pulmonary HTN: Status: Acute (7) UTI (urinary tract infection): E. coli sensitive to cephalosporins. Continue ceftriaxone. Status: Acute Additional A&P Information Acute CHF: Acute diastolic CHF improved, diuretics held due to acute kidney injury. Possibly tachycardia induced. TTE with normal ejection fraction. Acute encephalopathy: Multifactorial related to infection, hypoxia, ICU admission. Continue Precedex. Haldol as needed if becomes agitated. Avoid benzos. Baseline creatinine normal. Most likely a combination of mild CRS and sepsis from Covid. Medical reconciliation done for nephrotoxic drugs. For now hold off on lisinopril. Hypertension: At goal. [place]: Very hard of hearing, states left ear is usually somewhat better than the right. Attestations Medical Necessity Statement*: Continue admission for assessment and management of hypoxic respiratory failure secondary to severe COVID-19. Coding Level of Care Code Acute Educational [employer] President for Alexander Ochoa Diagnoses ARDS (adult respiratory distress syndrome) J80 SUE (acute kidney injury) N17.9 COVID-19 U07.1 Atrial fibrillation with RVR I48.91 LISANDRA (obstructive sleep apnea) G47.33 Pulmonary HTN I27.20 UTI (urinary tract infection) N39.0
[2021-06-05] MEDS: famotidine 20 mg/2 mL INJ IVP ×2 (10:10→20:57)
[2021-06-05] MEDS: dexamethasone 4 mg/mL INJ 6 MG IVP (10:10)
[2021-06-05] MEDS: azithromycin 500 MG in sodium chloride 0.9% 250 ML 250 MG IV (10:11)
[2021-06-05 10:18] LABS: Glucose Point of Care 277 mg/dL (70-110)
[2021-06-05] MEDS: cefTRIAXone 1,000 MG in sodium chloride 0.9% (plus) 50 ML 100 MG IV (12:20)
[2021-06-05 13:36] LABS: Glucose Point of Care 303 mg/dL (70-110)
--- NOTE | 2021-06-05 14:10 | PC.RESP ---
RT Shift Note Frequent safety and respiratory rounds continue. Orders completed as indicated. Patient monitored pre and post treatments throughout shift. Patient [Did.] tolerate treatments appropriately. Condition [.DidNotChange]. Patient and/or labor representative educated on respiratory treatment and medications. Patient and/or labor representative [unable to comprehend]. Will continue to monitor patient progress.
--- NOTE | 2021-06-05 16:47 | CTR_ITS ---
PROCEDURE INFORMATION: Exam: CT Head Without Contrast Exam date and time: 06/05/2021 4:47 PM Age: 76 years old Clinical indication: Altered mental status/memory loss; Confusion or disorientation; Additional info: Encephalopathy AMS TECHNIQUE: Imaging protocol: Computed tomography of the head without contrast. Total images: 215 Radiation optimization: All CT scans at this facility use at least one of these dose optimization techniques: automated exposure control; mA and/or kV adjustment per patient size (includes targeted exams where dose is matched to clinical indication); or iterative reconstruction. COMPARISON: No relevant prior studies available. RADIATION DOSE METRICS: Total DLP (mGy-cm): 1227.06 FINDINGS: Brain: No evidence of active or acute intracranial pathologic process, hemorrhage, or trauma. Advanced small vessel ischemic disease with senile periventricular leukomalacia. No mass effect. No midline shift. No hyperdense MCA or insular ribbon sign. Cerebral arteriosclerosis. Atrophic changes greater than that anticipated for patient's chronological age. Cerebral ventricles: No ventriculomegaly. Paranasal sinuses: Large air-fluid level right maxillary sinus consistent with acute right maxillary sinusitis. Complete opacification right frontal sinus. Mild chronic right ethmoid sinusitis. Mastoid air cells: Visualized mastoid air cells are well aerated. Bones/joints: Unremarkable. No acute fracture. Soft tissues: Unremarkable. CT/CT head wo con* [id number] IMPRESSION: 1. No evidence of active or acute intracranial pathologic process, hemorrhage, or trauma. 2. Right maxillary and frontal sinusitis. Radiation Dose CTDIVOL = (mGy): DLP = 1227.06 (mGy-cm)
--- NOTE | 2021-06-05 17:16 | PC.NURSE ---
MIDLINE RIGHT arm ready for use.
[2021-06-05] MEDS: enoxaparin 40 mg/0.4 mL Syringe SUBCUT (17:26)
[2021-06-05 17:35] LABS: Glucose Point of Care 232 mg/dL (70-110)
[2021-06-05] MEDS: nystatin cream 30 gm 1 APPLIC TOPICAL (17:38)
[2021-06-05] MEDS: remdesivir 100 MG in sodium chloride 0.9% (100 ml) 100 ML IV (17:41)
--- NOTE | 2021-06-05 20:00 | PC.NURSE ---
Transport to CT Took patient to CT by bed. VSS and patient wearing 15L oxygen via non-rebreather mask during transport. Patient tolerated well.
[2021-06-05 20:55] LABS: Glucose Point of Care 114 mg/dL (70-110)
[2021-06-05] MEDS: haloperidol inj 5 mg/mL INJ 1 mL 2 MG IM (21:50)
--- NOTE | 2021-06-05 22:00 | PC.NURSE ---
Pt Agitated/Restless Patient in bilateral non-violent soft wrist restraints and continues to pull at EKG wires, BIPAP mask/cords, and IV line. Attempted to verbally deescalate patient and orient to self and surroundings, patient still very agitated pulling at wires and moaning. IM Halodol was administered.
[2021-06-06] VITALS (51 sets, daily range): BP systolic 77–140; BP diastolic 48–100; PULSE 65–119; RESP 13–35; TEMP 36.8–36.9; O2SAT 77–95; BMI 41.3
[2021-06-06] MEDS: dexmedeTOMIDine 0.9 % NaCL 400 MCG/100 ML PREMIX 31.45 MCG IV (00:56)
[2021-06-06] MEDS: ipratropium-albuterol 3 mL Neb INHALATION ×4 (02:29→20:13)
[2021-06-06] MEDS: dexmedeTOMIDine 0.9 % NaCL 400 MCG/100 ML PREMIX 34.31 MCG IV ×3 (03:40→09:20)
[2021-06-06] MEDS: metoprolol tartrate 1 mg/1 mL SDV 5 mL 5 MG IVP (05:20)
--- NOTE | 2021-06-06 06:00 | XR_ITS ---
WS: [id number] Exam: XR chest 1V portable [id number] Date/Time of Exam: 06/06/2021 6:05 AM Reason For Exam: covid Comparison 06/04/2021. Minimal residual infiltrate in the left lower lung zone unchanged. Remaining lungs are clear heart si ze is unchanged. No pleural effusions are pneumothorax. The mediastinum is unremarkable. Bony structu res are intact. XR/XR chest 1V portable [id number] IMPRESSION: 1. Minimal residual infiltrate in the left lower lung zone. 2. Mild cardiac enlargement unchanged.
--- NOTE | 2021-06-06 07:31 | PC.NURSE ---
Shift Note Frequent safety and comfort rounds continue. Orders and/or nursing care completed as indicated. Patient monitored for response to intervention and treatment(s). Education provided includes respiratory requirements on the BIPAP. Patient needs further reinforcement. Meza catheter drained 425 mls of tea colored urine with sediment. BIPAP is at 55% FiO2. Non violent bilateral soft wrist restraints are still applied, patient continues to try and pull at wires and BIPAP with restraints applied. Precedex is infusing in the left AC IV at 1.2 mcg/kg/hr. Right midline is saline locked. Will continue to monitor.
[2021-06-06] MEDS: budesonide 0.5 mg/2 mL Neb INHALATION ×2 (08:03→20:13)
[2021-06-06] MEDS: zinc gluconate 50 mg Tablet PO (09:20)
[2021-06-06] MEDS: dexamethasone 4 mg/mL INJ 6 MG IVP (09:21)
[2021-06-06] MEDS: azithromycin 500 MG in sodium chloride 0.9% 250 ML 250 MG IV (09:30)
[2021-06-06 09:46] LABS: Basophils % 0.2 %; Eosinophils % 0.1 %; Hematocrit 50.5 % (37.0-47.0); Hemoglobin 16.7 g/dL (11.5-15.3); Lymphocytes # 0.3 10^3/uL (0.8-4.8); Lymphocytes % 3.2 %; Mean Corpuscular HGB Conc 33.1 g/dL (30.0-36.0); Mean Corpuscular Volume 93.7 fl (81-99); Monocytes # 0.4 10^3/uL (0.2-0.9); Monocytes % 3.9 %; Neutrophils % 92.2 %; Nucleated Red Blood Cells % 0 %; Platelet Count 138 10^3/cmm (130-400); Red Blood Count 5.39 10^6/uL (4.1-5.3); Red Cell Distribution Width 13.7 % (12.1-15.1); White Blood Count 10.1 10^3/uL (4.0-10.0)
[2021-06-06] MEDS: nystatin cream 30 gm 1 APPLIC TOPICAL ×2 (10:11→17:13)
[2021-06-06 10:14] LABS: Glucose Point of Care 200 mg/dL (70-110)
--- NOTE | 2021-06-06 10:21 | PC.SOCIAL ---
IMM Update pg 2 of IMM updated and reviewed w/ patients via telephone.
--- NOTE | 2021-06-06 10:30 | PC.NURSE ---
Dr Miller ordered PO meds to be held today. Pt is not tolerating removal of bipap or able to tolerate swallowing meds.
--- NOTE | 2021-06-06 11:00 | PC.NURSE ---
Pepcid was administered on time. Undo was unintentional.
--- NOTE | 2021-06-06 11:00 | PC.NURSE ---
HR in 80's. SBP 90-103. Metoprolol dose decreased for this administration only.
--- NOTE | 2021-06-06 11:00 | PC.NURSE ---
Lab called. Stated morning labs needed to be redrawn d/t clotting. Redrawn. Specimen labeled and given to Natalee Polk in lab.
[2021-06-06 11:33] LABS: Albumin Level 2.2 g/dL (3.5-5.2); Alkaline Phosphatase 68 IU/L (35-105); Anion Gap 22.5 (5-19); Calcium 8.6 mg/dL (8.5-10.5); Carbon Dioxide 20 mmol/L (22-29); Chloride 114 mmol/L (98-107); Globulin 3.6 g/dL (1.3-4.6); Glucose 225 mg/dL (65-115); Osmolality Calculated 348 mOsm/kg (285-295); Sodium 151 mmol/L (136-145); Total Bilirubin 0.3 mg/dL (0.15-1.2); Total Protein 5.8 g/dL (6.6-8.7)
[2021-06-06 11:34] LABS: Alanine Aminotransferase 12 U/L (0-33); Aspartate Amino Transferase 22 U/L (0-32); Potassium 5.5 mmol/L (3.5-5.1)
[2021-06-06 11:35] LABS: Blood Urea Nitrogen 95 mg/dL (8-23)
[2021-06-06] MEDS: cefTRIAXone 1,000 MG in sodium chloride 0.9% (plus) 50 ML 100 MG IV (12:48)
[2021-06-06] MEDS: famotidine 20 mg/2 mL INJ IVP ×2 (14:57→20:50)
[2021-06-06] MEDS: dextrose 5%-sod chloride 0.45% 1,000 ML 75 ML IV (16:29)
[2021-06-06] MEDS: dexmedeTOMIDine 0.9 % NaCL 400 MCG/100 ML PREMIX 14.3 MCG IV ×2 (16:29→22:30)
[2021-06-06] MEDS: enoxaparin 40 mg/0.4 mL Syringe SUBCUT (17:11)
[2021-06-06] MEDS: lanolin oint 7 gm 1 APPLIC TOPICAL (17:13)
--- NOTE | 2021-06-06 17:16 | P.PN_ITS ---
Subjective Subjective: Interval history: Sleeping, intermittently wakes up, moaning, confused. Vitals/I&O/Wt Last Vital Signs Temp 98.5 F 06/06/21 04:00 Pulse 86 06/06/21 16:30 Resp 15 06/06/21 16:30 BP 77/63 06/06/21 16:30 Pulse Ox 90 06/06/21 16:30 06/06/21 06/06/21 06/06/21 06:59 14:59 22:59 Intake Total 275.741 / 1304.669 200 / 200 Output Total 425 / 1025 Balance -149.259 / 279.669 200 / 200 Weight last 48 hrs Weight 112.689 kg Weight 113.143 kg Physical Exam Const: COMMON NORMALS: no acute distress NUTRITIONAL APPEARANCE: obese OTHER: Asleep, confused HENMT: COMMON NORMALS: oropharynx normal Neck/C-Spine: COMMON NORMALS: no JVD Resp: COMMON NORMALS: normal respiratory effort and clear to auscultation bilaterally AUSCULTATION: clear to auscultation bilaterally OTHER: BiPAP Cardio: COMMON NORMALS: no JVD, regular rhythm, S1 normal heart sound present, S2 normal heart sound present and No murmurs present (Cardio) RHYTHM: regular rhythm HEART SOUNDS: S1 normal heart sound present and S2 normal heart sound present GI: COMMON NORMALS: Normal to inspection, nondistended, normoactive bowel sounds present, Soft to palpation and non-tender PALPATION: Yes Soft to palpation Extremity: COMMON NORMALS: no joint enlargement GENERAL: Yes edema (trace) Neuro: COMMON NORMALS: moves all extremities Skin: COMMON NORMALS: no rashes or lesions noted GENERAL SKIN EXAM: no rashes or lesions noted Data : 06/06/21 09:40 06/06/21 10:30 Micro: Microbiology 06/01/21 10:25 Blood Culture - Final Blood NO GROWTH AFTER 5 DAYS 06/01/21 10:35 Blood Culture - Final Blood NO GROWTH AFTER 5 DAYS A&P Assessment and plan (1) ARDS (adult respiratory distress syndrome): Oxygenation gradually improving. Infiltrates improving on x-ray. Requiring 50% on BiPAP currently. With LISANDRA difficult to wean her off BiPAP given continued mental status changes. Discussed with her . Discussed regarding results of CT scan yesterday. Discussed regarding some worsening renal function as well as sodium. Discussed giving additional IV hydration, optimizing electrolytes, renal function. Discussed with him with improving oxygenation we will try weaning down steroid. Discussed concern regarding protracted encephalopathy and delirium secondary to COVID-19, acute illness, hypoxia, ICU admission. As she is still not waking up to eat, will add TPN. Discussed with her again. Continue medical care. He states in case of cardiac arrest she would not want chest compressions/CPR. Secondary to severe COVID-19, had also acute CHF possibly tachycardia induced, underlying pulmonary hypertension and LISANDRA. Anticoagulation held and changed to prophylactic dose due to hematuria. CTA was negative for PE and had had mild hematuria yesterday. D-dimer has been decreasing. Completed course of remdesivir. Continues empirically on ceftriaxone, azithromycin. Status: Acute (2) SUE (acute kidney injury): Worsening BUN, renal function. Less likely GI bleed given hemoglobin remains more stable, no reports of hematochezia, melena. Continues on famotidine. Suspect possibly contrast-induced nephropathy after CTA on 06/01. Possibly some prerenal etiology, although weight does not appear significantly changed. Appears in neutral to slightly positive balance, will give her additional fluid challenge given hyponatremia, possibly secondary to dehydration. D5-0.45% saline 75 mL/h for 1 L. Monitor oxygenation. Reassess renal function. Discussed with her . We will also assess renal studies, kidney ultrasound, urine sodium, urea, creatinine. Diuretics remain on hold. Meza exchanged on 06/05 due to sediment, clots. Hematuria. No significant residual noted. Draining well. So far today resolved hematuria. Status: Acute (3) COVID-19: Status: Acute (4) Atrial fibrillation with RVR: Heart rates are better, blood pressure soft. Possibly accumulation secondary to worsening renal function. Additional IV fluid challenge as above. Metoprolol had to be withheld. Continue to monitor, will decrease to 2.5 mg every 6 hours starting in the morning. Anticoagulation for now changed to prophylactic dose due to hematuria, consider trial of resuming full dose anticoagulation once bleeding resolves. Status: Acute (5) LISANDRA (obstructive sleep apnea): Status: Acute (6) Pulmonary HTN: Status: Acute (7) UTI (urinary tract infection): E. coli sensitive to cephalosporins. Completing course today with ceftr iaxone. Status: Acute Additional A&P Information Acute CHF: Acute diastolic CHF improved, diuretics held due to acute kidney injury. Possibly tachycardia induced. TTE with normal ejection fraction. Acute encephalopathy: Multifactorial related to infection, hypoxia, ICU admission. Wean Precedex as tolerating. Haldol as needed if becomes agitated. Avoid benzos. CT head without major abnormality. Baseline creatinine normal. Most likely a combination of mild CRS and sepsis from Covid. Medical reconciliation done for nephrotoxic drugs. For now hold off on lisinopril. Hypertension: At goal. [place]: Very hard of hearing, states left ear is usually somewhat better than the right. Attestations Medical Necessity Statement*: Continue admission for assessment management of hypoxic respiratory failure, acute encephalopathy secondary to severe COVID-19. Coding Level of Care Code Acute Drill Press Operator Numerical Control for g Fwd Exam Comprehensive Diagnoses ARDS (adult respiratory distress syndrome) J80 SUE (acute kidney injury) N17.9 COVID-19 U07.1 Atrial fibrillation with RVR I48.91 LISANDRA (obstructive sleep apnea) G47.33 Pulmonary HTN I27.20 UTI (urinary tract infection) N39.0
[2021-06-06 17:36] LABS: Glucose Point of Care 230 mg/dL (70-110)
[2021-06-06 18:36] LABS: Potassium 5.2 mmol/L (3.5-5.1)
[2021-06-06 19:51] LABS: Glucose Point of Care 213 mg/dL (70-110)
[2021-06-06 20:30] LABS: Urine Creatinine 71 mg/dL (28-217); Urine Random Sodium 47 mmol/L
[2021-06-06 21:37] LABS: Glucose Point of Care 235 mg/dL (70-110)
[2021-06-06 22:04] LABS: Urea Nitrogen,Urine Random 1387 mg/dL
[2021-06-07] VITALS (55 sets, daily range): BP systolic 89–145; BP diastolic 48–103; PULSE 90–155; RESP 16–40; TEMP 36.3–36.6; O2SAT 73–96
[2021-06-07] MEDS: ipratropium-albuterol 3 mL Neb INHALATION ×4 (02:14→20:49)
[2021-06-07 05:24] LABS: Basophils % 0.1 %; Hematocrit 46.2 % (37.0-47.0); Hemoglobin 14.7 g/dL (11.5-15.3); Lymphocytes # 0.2 10^3/uL (0.8-4.8); Lymphocytes % 1.6 %; Mean Corpuscular HGB Conc 31.8 g/dL (30.0-36.0); Mean Corpuscular Hemoglobin 30.2 pg (28.0-34.0); Mean Corpuscular Volume 94.9 fl (81-99); Mean Platelet Volume 12.8 fL (7.4-10.4); Monocytes # 0.5 10^3/uL (0.2-0.9); Monocytes % 3.4 %; Neutrophils # 13.21 10^3/uL (1.8-7.7); Neutrophils % 94.5 %; Nucleated Red Blood Cells % 0 %; Platelet Count 135 10^3/cmm (130-400); Red Blood Count 4.87 10^6/uL (4.1-5.3); Red Cell Distribution Width 13.8 % (12.1-15.1)
[2021-06-07 05:48] LABS: Alanine Aminotransferase 13 U/L (0-33); Albumin Level 2.1 g/dL (3.5-5.2); Alkaline Phosphatase 70 IU/L (35-105); Aspartate Amino Transferase 23 U/L (0-32); Calcium 8.2 mg/dL (8.5-10.5); Carbon Dioxide 18 mmol/L (22-29); Chloride 122 mmol/L (98-107); Globulin 3.4 g/dL (1.3-4.6); Glucose 235 mg/dL (65-115); Osmolality Calculated 356 mOsm/kg (285-295); Sodium 154 mmol/L (136-145); Total Bilirubin 0.5 mg/dL (0.15-1.2); Total Protein 5.5 g/dL (6.6-8.7)
--- NOTE | 2021-06-07 06:00 | USR_ITS ---
PROCEDURE INFORMATION: Exam: US Retroperitoneal; Complete; Kidneys and Bladder Exam date and time: 06/07/2021 6:00 AM Age: 76 years old Clinical indication: Abnormal findings; Abnormal lab test; Abnormal kidney function lab tests; Additional info: Andrew TECHNIQUE: Imaging protocol: Real-time ultrasound of the retroperitoneum with image documentation. Complete exam focused on the kidneys and bladder. COMPARISON: CTA Abdomen/Pelvis [id number] 09/11/2014 10:22 AM FINDINGS: The examination is technically limited, in part due to patient combativeness. Right kidney: Poorly visualized right kidney measures 9.8 cm in length with thinning of renal parenchyma. No hydronephrosis. Left kidney: Poorly visualized left kidney measures 10.8 cm in length. Thinning of renal parenchyma. No hydronephrosis. Urinary bladder: Meza catheter in decompressed bladder. US/US renal BI* [id number] IMPRESSION: Renal atrophy, without hydronephrosis.
[2021-06-07 06:05] LABS: Anion Gap 17.9 (5-19); Potassium 3.9 mmol/L (3.5-5.1)
[2021-06-07 06:06] LABS: Blood Urea Nitrogen 97 mg/dL (8-23)
[2021-06-07] MEDS: budesonide 0.5 mg/2 mL Neb INHALATION ×2 (07:58→20:49)
[2021-06-07 08:23] LABS: Glucose Point of Care 254 mg/dL (70-110)
[2021-06-07] MEDS: dexamethasone 4 mg/mL INJ 3 MG IVP (08:34)
[2021-06-07] MEDS: famotidine 20 mg/2 mL INJ IVP ×2 (08:35→19:31)
[2021-06-07 09:03] LABS: Magnesium 2.7 mg/dL (1.7-2.3)
[2021-06-07] MEDS: dextrose 5% 1,000 ML 75 ML IV (09:14)
[2021-06-07] MEDS: metoprolol tartrate 1 mg/1 mL SDV 5 mL 2.5 MG IVP ×3 (09:17→20:36)
[2021-06-07] MEDS: azithromycin 500 MG in sodium chloride 0.9% 250 ML 250 MG IV (09:19)
--- NOTE | 2021-06-07 09:36 | PC.NURSE ---
At 0714, the Bipap hose became disconnected from the mask due to patient thrashing her head side to side. Oxygen saturation was unknown due to patient pulling O2Sat prob off. Patient went into vtach. Bipap hose as reconnected, given 100% oxygen, and crash cart brought into room. Patient went back into Sinus rythm/ slight sinus tach after SPO2 josé luis above 80%. Dr sullivan notified of vtach episode and a sodium level of 154. Received orders to start a 1000mL bolus of D5 at 75 mL/hr.
[2021-06-07] MEDS: cefTRIAXone 1,000 MG in sodium chloride 0.9% (plus) 50 ML 100 MG IV (10:33)
[2021-06-07] MEDS: nystatin cream 30 gm 1 APPLIC TOPICAL ×2 (10:45→18:07)
[2021-06-07 11:19] LABS: Glucose Point of Care 292 mg/dL (70-110)
--- NOTE | 2021-06-07 12:06 | PC.NUTR ---
Nutrition recommendations: NPO day 7. Nurse (Carlos) stated that MD not sure about paperwork required to initiate the TPN ordered yesterday. This RD offered to complete the paperwork for pharmacy, however nurse (KAT) states she will clarify this with MD and complete the form. If gut functioning and no contraindication for enteral nutrition, would suggest change to tube feeding when medically appropriate as it is recommended over parenteral nutrition when possible. See full RD assessment for further details.
[2021-06-07] MEDS: dexmedeTOMIDine 0.9 % NaCL 400 MCG/100 ML PREMIX 11.44 MCG IV (14:16)
--- NOTE | 2021-06-07 15:29 | PC.NURSE ---
Nurse attempted to give Ramon carlson () a antonieta to give an update. No answer .
--- NOTE | 2021-06-07 15:54 | PC.NURSE ---
Nurse spoke to brionna and gave update.
[2021-06-07 18:03] LABS: Glucose Point of Care 235 mg/dL (70-110)
[2021-06-07] MEDS: enoxaparin 40 mg/0.4 mL Syringe SUBCUT (18:06)
--- NOTE | 2021-06-07 18:30 | PC.NURSE ---
Shift Note Frequent safety and comfort rounds continue. Orders and/or nursing care completed as indicated. Patient monitored for response to intervention and treatment. SHift summary: Besides breif period of Vtach this morning, the shift has been uneventful. Patient has rested in bed throughout the say. Oxygen requirements remain the same: Bipap @50%. Patient rests comfortably in bed most of the time, but about once an hour she will become agitated for 5-10 minutes. has been updated today.
[2021-06-07 19:05] LABS: Calcium 8.5 mg/dL (8.5-10.5); Carbon Dioxide 23 mmol/L (22-29); Chloride 117 mmol/L (98-107); Glucose 261 mg/dL (65-115); Osmolality Calculated 355 mOsm/kg (285-295); Sodium 154 mmol/L (136-145)
[2021-06-07 19:06] LABS: Anion Gap 18.4 (5-19); Potassium 4.4 mmol/L (3.5-5.1)
[2021-06-07 19:08] LABS: Blood Urea Nitrogen 91 mg/dL (8-23)
--- NOTE | 2021-06-07 19:13 | PC.NURSE ---
Physician Communication Dr. Snow notified of critical BUN value of 91 via phone call. Sodium level of 154 and potassium level of 4.4 also relayed. No new orders received at this time.
--- NOTE | 2021-06-07 19:16 | P.PN_ITS ---
Subjective Subjective: Interval history: Intermittently awake, at that time confused, moving around the bed, grabbing onto bed rails, when her name is spoken appears to perhaps try to vocalize, but incomprehensible, does not make eye contact or try to answer questions or follow commands. At other times lethargic. This morning during episode of confusion pulled off the BiPAP hose, desaturated, at that time noted to have a run of VT. Oxygen saturation improved after oxygen supply reestablished with a BiPAP. With spontaneous resolution of VT. No recurrence. Vitals/I&O/Wt Last Vital Signs Temp 97.7 F 06/07/21 16:00 Pulse 100 06/07/21 17:23 Resp 25 H 06/07/21 16:00 BP 113/73 06/07/21 16:00 Pulse Ox 90 06/07/21 17:23 06/07/21 06/07/21 06/07/21 06:59 14:59 22:59 Intake Total 1400 / 1700.000 349.573 / 349.573 Output Total 600 / 1100 100 / 100 250 / 350 Balance 800 / 600.000 -100 / -100 99.573 / -0.427 Weight last 48 hrs Weight 114.022 kg Weight 112.689 kg Physical Exam Const: COMMON NORMALS: no acute distress NUTRITIONAL APPEARANCE: obese OTHER: Confused HENMT: COMMON NORMALS: oropharynx normal Neck/C-Spine: COMMON NORMALS: no JVD Resp: COMMON NORMALS: normal respiratory effort and clear to auscultation bilaterally AUSCULTATION: clear to auscultation bilaterally OTHER: BiPAP Cardio: COMMON NORMALS: no JVD, regular rhythm, S1 normal heart sound present, S2 normal heart sound present and No murmurs present (Cardio) RHYTHM: regular rhythm HEART SOUNDS: S1 normal heart sound present and S2 normal heart sound present GI: COMMON NORMALS: Normal to inspection, nondistended, normoactive bowel sounds present, Soft to palpation and non-tender PALPATION: Yes Soft to palpation Extremity: COMMON NORMALS: no joint enlargement and no pedal edema Neuro: COMMON NORMALS: moves all extremities Skin: COMMON NORMALS: no rashes or lesions noted GENERAL SKIN EXAM: no rashes or lesions noted Data : 06/07/21 04:35 06/07/21 18:24 A&P Assessment and plan (1) Acute encephalopathy: Waxing and waning mental status changes, with periods of wakefulness during which she is confused, restless, moving about in bed, gripping bedrails and anything else that might be in reach. Other times lethargic, unresponsive. Multifactorial related to infection, hypoxia, ICU admission. Wean Precedex slowly as tolerating -due to prolonged infusion will need slow taper off over several days. Haldol as needed if becomes agitated. Avoid benzos. CT head without major abnormality. Continue supportive care. Taper off steroid dose. Currently down to 3 mg. Continue to optimize hypernatremia, D5W infusion currently. Starting TPN. Status: Acute (2) ARDS (adult respiratory distress syndrome): Oxygenation gradually improving. Infiltrates improving on x-ray. Requiring 50% on BiPAP currently. With LISANDRA difficult to wean her off BiPAP given continued mental status changes. Weaning down steroid. Increasing leukocytosis today, up to 14,000, predominantly neutrophilic, stop ceftriaxone, azithromycin, change antibiotic coverage to empiric Zosyn. Discussed concern regarding protracted encephalopathy and delirium secondary to COVID-19, acute illness, hypoxia, ICU admission. As she is still not waking up to eat, added TPN. Per discussion with her continue medical care. He states in case of cardiac arrest she would not want chest compressions/CPR. Secondary to severe COVID-19, had also acute CHF possibly tachycardia induced, underlying pulmonary hypertension and LISANDRA. Anticoagulation held and changed to prophylactic dose due to hematuria. CTA was negative for PE. D-dimer has been decreasing. Resume anticoagulation when possible for atrial fibrillation. Completed course of remdesivir. Status: Acute (3) SUE (acute kidney injury): Again worsening renal function, creatinine up to 1.7. BUN appears little bit better down to 91. Additional IV hydration today as by urine studies SUE appears to be prerenal. With noted persistent hypernatremia, sodium 154. Fluids changed to D5W today. Recheck CK. On the was normal. Suspect possibly contrast-induced nephropathy after CTA on 06/01. Less likely GI bleed given hemoglobin remains more stable, no reports of hematochezia, melena. Continues on famotidine. Reassess renal function. Diuretics remain on hold. Meza exchanged on 06/05 due to sediment, clots. Hematuria. No significant residual noted. Draining well. So far today resolved hematuria. Status: Acute (4) COVID-19: Status: Acute (5) Atrial fibrillation with RVR: This morning run of ventricular tachycardia after episode of hypoxia after pulling off her BiPAP hose. Spontaneously resolved, subsequently with some A. fib with RVR. Received 2.5 mg of metoprolol IV with improvement in heart rates. Continue. In case of worsening heart rates, soft blood pressures, consider amiodarone drip. Potassium not low. Magnesium also checked today, not low. Anticoagulation for now changed to prophylactic dose due to hematuria, consider trial of resuming full dose anticoagulation once bleeding resolves. Status: Acute (6) LISANDRA (obstructive sleep apnea): Status: Acute (7) Pulmonary HTN: Status: Acute (8) UTI (urinary tract infection): E. coli sensitive to cephalosporins. Completed course with ceftriaxone. Status: Acute Additional A&P Information Acute CHF: Acute diastolic CHF improved, diuretics held due to acute kidney injury. Possibly tachycardia induced. TTE with normal ejection fraction. Prolonged run of wide-complex tachycardia this morning reported of about 8 minutes, resolving spontaneously, after she had pulled after holding her BiPAP became quite hypoxic with saturation down into the 60s. Saturations improved after BiPAP oxygen supply reconnected with spontaneous resolution of tachycardia without recurrence. Potassium is not low, medium also checked, not low. Continue to monitor on telemetry. If any recurrence not associated with hypoxia assess cardiac studies. Hypertension: At goal. Blood pressures have been soft. Lisinopril had been on hold. [place]: Very hard of hearing, states left ear is usually somewhat better than the right. Attestations Medical Necessity Statement*: Continue admission for assessment management of acute encephalopathy, acute kidney injury, hypoxic respiratory failure following severe COVID-19. 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
[2021-06-07] MEDS: piperacillin-tazobactam 3.375 GM in sodium chloride 0.9% (plus) 50 ML IV (19:30)
[2021-06-07 20:26] LABS: Glucose Point of Care 227 mg/dL (70-110)
--- NOTE | 2021-06-07 22:35 | PC.NURSE ---
FIO2 Increase Patient's oxygen saturation 87%. RT was consulted and her FIO2 was increased to 55% on the BIPAP, saturation increased to low 90s. Dr. Snow notified of change. No new orders at this time.
[2021-06-08] VITALS (55 sets, daily range): BP systolic 84–146; BP diastolic 45–111; PULSE 89–138; RESP 18–58; TEMP 36.6–37.3; O2SAT 88–96; BMI 39.8
[2021-06-08] MEDS: dexmedeTOMIDine 0.9 % NaCL 400 MCG/100 ML PREMIX 10.01 MCG IV (00:22)
--- NOTE | 2021-06-08 02:15 | PC.NURSE ---
Precedex Increase Patient moving arms/pulling restraints and attempting to grasp other wires in an agitated manner, as well as thrashing head side to side. Position changed, wires covered with blankets, and stimulation to patient decreased. Precedex titrated per NOV.
[2021-06-08] MEDS: ipratropium-albuterol 3 mL Neb INHALATION ×4 (02:48→20:17)
--- NOTE | 2021-06-08 03:00 | PC.NURSE ---
FIO2 Increase Patient's oxygen saturation decreased to 86%. RT alerted and FIO2 increased to 70% on BIPAP. Oxygen saturation increased to low 90s. Dr. Snow notified.
[2021-06-08] MEDS: metoprolol tartrate 1 mg/1 mL SDV 5 mL 2.5 MG IVP ×4 (03:35→11:51)
[2021-06-08 05:42] LABS: Basophils % 0.1 %; Hematocrit 48.1 % (37.0-47.0); Hemoglobin 14.9 g/dL (11.5-15.3); Lymphocytes # 0.4 10^3/uL (0.8-4.8); Mean Corpuscular Hemoglobin 30.4 pg (28.0-34.0); Mean Corpuscular Volume 98.2 fl (81-99); Mean Platelet Volume 12.8 fL (7.4-10.4); Monocytes # 0.3 10^3/uL (0.2-0.9); Monocytes % 2.1 %; Neutrophils # 12.84 10^3/uL (1.8-7.7); Neutrophils % 94.3 %; Nucleated Red Blood Cells % 0 %; Platelet Count 119 10^3/cmm (130-400); Red Cell Distribution Width 14.2 % (12.1-15.1); White Blood Count 13.6 10^3/uL (4.0-10.0)
[2021-06-08 06:17] LABS: Alanine Aminotransferase 20 U/L (0-33); Albumin Level 2.2 g/dL (3.5-5.2); Alkaline Phosphatase 87 IU/L (35-105); Anion Gap 16.2 (5-19); Aspartate Amino Transferase 30 U/L (0-32); Calcium 8.7 mg/dL (8.5-10.5); Carbon Dioxide 24 mmol/L (22-29); Chloride 122 mmol/L (98-107); Globulin 3.5 g/dL (1.3-4.6); Glucose 123 mg/dL (65-115); Osmolality Calculated 355 mOsm/kg (285-295); Potassium 4.2 mmol/L (3.5-5.1); Sodium 158 mmol/L (136-145); Total Bilirubin 0.7 mg/dL (0.15-1.2); Total Protein 5.7 g/dL (6.6-8.7)
[2021-06-08 06:25] LABS: Blood Urea Nitrogen 89 mg/dL (8-23); Creatine Phosphokinase 363 U/L (26-192)
[2021-06-08] MEDS: piperacillin-tazobactam 3.375 GM in sodium chloride 0.9% (plus) 50 ML IV (06:55)
--- NOTE | 2021-06-08 07:01 | PC.NURSE ---
Shift Note Frequent safety and comfort rounds continue. Orders and/or nursing care completed as indicated. Patient monitored for response to intervention and treatment(s). Education provided includes information regarding metoprolol/precedex, the importance of telemetry/oxygen/PICC line, and results of recent tests. Patient remains only oriented to self and needs reinforcement on all teaching. Patient will continue to be monitored.
[2021-06-08 08:19] LABS: Glucose Point of Care 156 mg/dL (70-110)
[2021-06-08] MEDS: famotidine 20 mg/2 mL INJ IVP ×2 (08:31→20:08)
[2021-06-08] MEDS: dexamethasone 4 mg/mL INJ 3 MG IVP (08:32)
[2021-06-08] MEDS: dexmedeTOMIDine 0.9 % NaCL 400 MCG/100 ML PREMIX 11.44 MCG IV (08:35)
[2021-06-08] MEDS: budesonide 0.5 mg/2 mL Neb INHALATION ×2 (09:05→20:18)
[2021-06-08] MEDS: nystatin cream 30 gm 1 APPLIC TOPICAL ×2 (09:40→17:33)
[2021-06-08 12:00] LABS: Glucose Point of Care 203 mg/dL (70-110)
[2021-06-08] MEDS: metoprolol tartrate 1 mg/1 mL SDV 5 mL 5 MG IVP ×3 (12:52→20:15)
--- NOTE | 2021-06-08 14:32 | PC.SOCIAL ---
IMM Updated Updated pt's son Brian, via phone, on IMM. No questions voiced. Provided pt care nurse a copy to give to pt/family. Initialed, dated, & timed copy in chart.
[2021-06-08] MEDS: AA-Dex 5%-20% w/Lytes 1,000 ML 20 ML IV (15:25)
[2021-06-08] MEDS: piperacillin-tazobactam 3.375 GM in dextrose 5% (plus) 50 ML IV ×2 (15:45→23:35)
[2021-06-08 17:29] LABS: Glucose Point of Care 231 mg/dL (70-110)
[2021-06-08] MEDS: enoxaparin 40 mg/0.4 mL Syringe SUBCUT (17:33)
--- NOTE | 2021-06-08 19:13 | PC.NURSE ---
Shift Note Frequent safety and comfort rounds continue. Orders and/or nursing care completed as indicated. Patient monitored for response to intervention and treatment. Shift Summary: Uneventful shift. Patient rested in bed thorughout the day. Afib was not well managed with the scheduled metoprolol like it has been the last few days. After multiple metoprolol pushes, she was started on amiodarone, which has had more success in treating the AFIB. Patient was started on TPN today. Mental status remains unchanged, A/Ox0.
--- NOTE | 2021-06-08 19:33 | PM.PN ---
Subjective Subjective: Interval history: Confused, although appears to almost respond with a moan to her name, however, does not make eye contact, not following commands. Confused. Vitals/I&O/Wt Last Vital Signs Temp 98.4 F 06/08/21 16:00 Pulse 105 H 06/08/21 16:00 Resp 37 H 06/08/21 16:00 BP 102/45 06/08/21 16:00 Pulse Ox 94 06/08/21 17:39 06/08/21 06/08/21 06/08/21 06:59 14:59 22:59 Intake Total 1117.444 / 1467.017 183.086 / 183.086 22.403 / 205.489 Output Total 625 / 975 Balance 492.444 / 492.017 183.086 / 183.086 22.403 / 205.489 Weight last 48 hrs Weight 108.579 kg Weight 114.022 kg Physical Exam Const: COMMON NORMALS: no acute distress NUTRITIONAL APPEARANCE: obese OTHER: Confused HENMT: COMMON NORMALS: oropharynx normal Neck/C-Spine: COMMON NORMALS: no JVD Resp: COMMON NORMALS: normal respiratory effort and clear to auscultation bilaterally AUSCULTATION: clear to auscultation bilaterally OTHER: BiPAP Cardio: COMMON NORMALS: no JVD, regular rhythm, S1 normal heart sound present, S2 normal heart sound present and No murmurs present (Cardio) RHYTHM: regular rhythm HEART SOUNDS: S1 normal heart sound present and S2 normal heart sound present GI: COMMON NORMALS: Normal to inspection, nondistended, normoactive bowel sounds present, Soft to palpation and non-tender PALPATION: Yes Soft to palpation Extremity: COMMON NORMALS: no joint enlargement and no pedal edema Neuro: COMMON NORMALS: moves all extremities Skin: COMMON NORMALS: no rashes or lesions noted GENERAL SKIN EXAM: no rashes or lesions noted Data : 06/08/21 04:50 06/08/21 04:50 A&P Assessment and plan (1) Acute encephalopathy: Appears to be awake more, but persistently confused, not following commands. Continue to taper down steroids, decrease down to 1.5 mg Solu-Medrol. Continue to methodically wean off slowly off of Precedex, decrease down to 0.3. Please do not increase given worsening hypernatremia, inability to mix Precedex and other fluids. Needs to wean off entirely, although at high risk of withdrawal with sudden weaning. Would try to wean by end of day tomorrow. Use haloperidol if needed in case of agitation. Does not respond well to benzos. Would avoid. Again noted worsening hypernatremia. Started on TPN today. As noted Precedex can only be mixed in saline. Starting on amiodarone which will be mixed in D5. Waxing and waning mental status changes, with periods of wakefulness during which she is confused, restless, moving about in bed, gripping bedrails and anything else that might be in reach. Other times lethargic, unresponsive. Multifactorial related to infection, hypoxia, ICU admission. Wean Precedex slowly as tolerating -due to prolonged infusion will need slow taper off over several days. Haldol as needed if becomes agitated. Avoid benzos. CT head without major abnormality. Continue supportive care. At baseline has been reports has good memory, no concerns of dementia. I noticed she was also quite hard of hearing when I had met her, and this may be contributing to her delirium. Status: Acute (2) ARDS (adult respiratory distress syndrome): Continue to wean off steroid. Oxygenation overall gradually improving. Infiltrates improving on x-ray. Requiring 50% on BiPAP currently. With LISANDRA difficult to wean her off BiPAP given continued mental status changes. Continue currently empirically on Zosyn. On 06/07 stopped ceftriaxone, azithromycin Discussed concern regarding protracted encephalopathy and delirium secondary to COVID-19, acute illness, hypoxia, ICU admission. As she is still not waking up to eat, started TPN. Per discussion with her continue medical care. He states in case of cardiac arrest she would not want chest compressions/CPR. Secondary to severe COVID-19, had also acute CHF possibly tachycardia induced, underlying pulmonary hypertension and LISANDRA. Anticoagulation held and changed to prophylactic dose due to hematuria. CTA was negative for PE. D-dimer has been decreasing. Resume anticoagulation when possible for atrial fibrillation. Completed course of remdesivir. Status: Acute (3) SUE (acute kidney injury): Again worsening renal function, creatinine up to 1.7. BUN appears little bit better down to 91. Additional IV hydration today as by urine studies SUE appears to be prerenal. With noted persistent hypernatremia, sodium 154. Fluids changed to D5W today. Recheck CK. On the was normal. Suspect possibly contrast-induced nephropathy after CTA on 06/01. Less likely GI bleed given hemoglobin remains more stable, no reports of hematochezia, melena. Continues on famotidine. Reassess renal function. Diuretics remain on hold. Meza exchanged on 06/05 due to sediment, clots. Hematuria. No significant residual noted. Draining well. So far today resolved hematuria. Status: Acute (4) COVID-19: Status: Acute (5) Atrial fibrillation with RVR: This morning again A. fib with RVR, 120s-130s. Did not respond particularly well to repeat doses of metoprolol, 2 doses of 2.5 mg and even with increased to 5 mg IV. Started on amnio drip. 06/07 morning run of ventricular tachycardia after episode of hypoxia after pulling off her BiPAP hose. Spontaneously resolved, subsequently with some A. fib with RVR. Potassium not low. Magnesium also checked today, not low. Anticoagulation for now changed to prophylactic dose due to hematuria, consider trial of resuming full dose anticoagulation once bleeding resolves. Status: Acute (6) LISANDRA (obstructive sleep apnea): Status: Acute (7) Pulmonary HTN: Status: Acute (8) UTI (urinary tract infection): E. coli sensitive to cephalosporins. Completed course with ceftriaxone. Status: Acute Additional A&P Information Acute CHF: Acute diastolic CHF improved, diuretics held due to acute kidney injury. Possibly tachycardia induced. TTE with normal ejection fraction. Prolonged run of wide-complex tachycardia: Without recurrence. 06/07 morning reported of about 8 minutes, resolving spontaneously, after she had pulled after holding her BiPAP became quite hypoxic with saturation down into the 60s. Saturations improved after BiPAP oxygen supply reconnected with spontaneous resolution of tachycardia without recurrence. Potassium is not low, medium also checked, not low. Continue to monitor on telemetry. If any recurrence not associated with hypoxia assess cardiac studies. Hypertension: At goal. Blood pressures have been soft. Lisinopril had been on hold. [place]: Very hard of hearing, states left ear is usually somewhat better than the right. Attestations Medical Necessity Statement*: Continue admission for assessment management of persistent encephalopathy, delirium, weaning of steroid, Precedex, initiation of TPN, further management of hypernatremia, supportive care, weaning of high oxygen support. 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
[2021-06-08 19:57] LABS: Glucose Point of Care 265 mg/dL (70-110)
[2021-06-08] MEDS: dexmedeTOMIDine 0.9 % NaCL 400 MCG/100 ML PREMIX IV (23:36)
[2021-06-09] VITALS (56 sets, daily range): BP systolic 114–177; BP diastolic 45–144; PULSE 88–140; RESP 18–54; TEMP 36–36.6; O2SAT 86–95; BMI 41.5
[2021-06-09] MEDS: ipratropium-albuterol 3 mL Neb INHALATION ×5 (02:58→20:23)
[2021-06-09] MEDS: metoprolol tartrate 1 mg/1 mL SDV 5 mL 5 MG IVP ×6 (03:50→22:51)
--- NOTE | 2021-06-09 05:10 | PC.NURSE ---
Shift Note Frequent safety and comfort rounds continue. Orders and/or nursing care completed as indicated. Patient monitored for response to intervention and treatment(s). Education provided includes medication. Patient needs further reinforcement teaching due to being confused. Patient remains on BIPAP at 50% FiO2. Right AC IV is saline locked at this time. Right PICC line infusing TPN, Amiodarone, and Precedex please see MAR for infusion rates. Meza catheter drained 350 mls of light rosa urine all evening. Patient has bruising on the left abdomen and bilateral hands. Left wrist has a blister, Optifoam dressing applied. Sacrum has a pressure injury, large Optifoam dressing applied to site. Please see wound assessment for further detail. Will continue to monitor.
[2021-06-09 06:39] LABS: Basophils % 0.1 %; Hematocrit 48.6 % (37.0-47.0); Hemoglobin 15.1 g/dL (11.5-15.3); Lymphocytes # 0.4 10^3/uL (0.8-4.8); Lymphocytes % 3.6 %; Mean Corpuscular HGB Conc 31.1 g/dL (30.0-36.0); Mean Corpuscular Hemoglobin 30.3 pg (28.0-34.0); Mean Corpuscular Volume 97.6 fl (81-99); Mean Platelet Volume 13.7 fL (7.4-10.4); Monocytes # 0.3 10^3/uL (0.2-0.9); Monocytes % 2.5 %; Neutrophils # 11.48 10^3/uL (1.8-7.7); Neutrophils % 93.2 %; Nucleated Red Blood Cells % 0 %; Platelet Count 133 10^3/cmm (130-400); Red Blood Count 4.98 10^6/uL (4.1-5.3); Red Cell Distribution Width 14.5 % (12.1-15.1); White Blood Count 12.3 10^3/uL (4.0-10.0)
[2021-06-09 07:15] LABS: Slide Review Slide Review Perform
[2021-06-09 07:20] LABS: Alanine Aminotransferase 21 U/L (0-33); Albumin Level 2.1 g/dL (3.5-5.2); Alkaline Phosphatase 90 IU/L (35-105); Anion Gap 16.8 (5-19); Aspartate Amino Transferase 17 U/L (0-32); Calcium 8.6 mg/dL (8.5-10.5); Carbon Dioxide 20 mmol/L (22-29); Chloride 120 mmol/L (98-107); Creatine Phosphokinase 172 U/L (26-192); Globulin 3.7 g/dL (1.3-4.6); Glucose 467 mg/dL (65-115); Osmolality Calculated 364 mOsm/kg (285-295); Potassium 4.8 mmol/L (3.5-5.1); Sodium 152 mmol/L (136-145); Total Bilirubin 0.7 mg/dL (0.15-1.2); Total Protein 5.8 g/dL (6.6-8.7)
[2021-06-09 07:24] LABS: Blood Urea Nitrogen 94 mg/dL (8-23)
[2021-06-09] MEDS: piperacillin-tazobactam 3.375 GM in dextrose 5% (plus) 50 ML IV ×3 (07:41→22:51)
[2021-06-09] MEDS: budesonide 0.5 mg/2 mL Neb INHALATION ×2 (07:54→20:23)
[2021-06-09 08:15] LABS: Glucose Point of Care 375 mg/dL (70-110)
--- NOTE | 2021-06-09 09:06 | ECG_ITS ---
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1945 Requested By: Syd Salvador Order Number: [id number] Yris MD: FELA HDZ Measurements Intervals [place] Rate: 119 P: TN: QRS: -53 QRSD: 131 T: 123 QT: 367 QTc: 517 Interpretive Statements ATRIAL FIBRILLATION WITH RAPID VENTRICULAR RESPONSE LEFT AXIS DEVIATION [QRS AXIS < -30] RIGHT BUNDLE BRANCH BLOCK [120+ ms QRS DURATION, UPRIGHT V1, 40+ ms S IN I/aVL/V4/V5/V6] VOLTAGE CRITERIA FOR LVH [MEETS CRITERIA IN ONE OF: R(aVL), S(V1), R(V5), R(V5/V6)+S(V1)] POSSIBLE ANTERIOR MYOCARDIAL INFARCTION , OF INDETERMINATE AGE [30 ms Q WAVE IN V3/V4, OR R < 0.2 mV IN V4] ST DEVIATION AND MARKED T-WAVE ABNORMALITY, CONSIDER LATERAL ISCHEMIA [-0.5+ mV T-WAVE IN I/aVL/V5/V6] Compared to ECG 06/01/2021 16:42:14 Aberrant conduction of supraventricular beat(s) no longer present Ventricular premature complex(es) no longer present Myocardial infarct finding still present T-wave abnormality still present Possible ischemia still present Electronically Signed On 06-09-2021 20:20:03 CDT by FELA HDZ [email or web address]
[2021-06-09 09:24] LABS: ABG PCO2 31.3 mmHg (35-45); ABG PH Result 7.41 (7.35-7.45); Alveolar-Arterial Oxygen Gradi 43.4 mmHg (5-10); Arterial Blood Gas Hematocrit 47.5 % (37-47); Base Excess ABG -3.7 mmol/L (-2.0-2.0); Blood Gas Allen Test Pos; Blood Gas Operator Identificat BD; Blood Gas Sample Site Brachial, left; Blood Gas Sample Type Arterial; Carboxyhemoglobin 1.2 %THgb (0.4-20.1); HCO3 ABG 19.8 mmol/L (22-26); HGB O2 Sat 86.8 % (95-100); Ionized Calcium Level - ABG 1.3 mmol/L (1.1-1.4); Methemoglobin 0.8 % (0.4-1.5); Oxygen Device BIPAP; Oxygen Saturation ABG 88.6; PO2 ABG 53.8 mmHg (80.0-100.0); Potassium Level - ABG 4.4 mmol/L (3.5-5.0); Total Hemoglobin 15.5 g/dL (12-16)
[2021-06-09] MEDS: dexamethasone 4 mg/mL INJ 3 MG IVP (09:25)
[2021-06-09] MEDS: nystatin cream 30 gm 1 APPLIC TOPICAL ×2 (09:26→17:41)
[2021-06-09] MEDS: famotidine 20 mg/2 mL INJ IVP ×2 (09:26→20:53)
[2021-06-09 09:48] LABS: NT Pro B Type Natriuretic Pept 574 pg/mL (0-450); Procalcitonin 0.21 ng/mL (0-0.5)
--- NOTE | 2021-06-09 10:00 | PC.CHAP ---
Pastoral Care Encounter/Spiritual Assessment Type of Contact [] Declined microbiology analyst visit [] Patient/Family/Request visit [] Outpatient visit [] Follow-up visit [] Physician referral [] Code/Alert [x] Routine visit [] Staff referral [] Actively dying [] Patient sleeping [] Family support [] [] Out of room [] Palliative care [] [] Receiving care in room [] Pre-surgical visit [] Trauma [] Long length of stay [x] ICU visit [x] Other: covid.. being moved to room 3.. door on 2 will not close Relational/Emotional Strength [] Patient feels connected with others/family/visitors/staff [] Distress [] Loneliness/isolation [] Abandonment Spirituality of Patient [] Person of Radha [] Attends Anabaptist of their Radha [] Believes in Prayer [] Reads Bible or Tenriism materials [] There are Spiritual issues to be addressed Bulldogger Interventions [x] Prayer [] Active listening [] Non-anxious presence [] Spiritual/emotional support [] Crisis/trauma care [] Spiritual counseling [] Bereavement support [] Provided bereavement packet [] Provided Bible/devotional materials [] Provided toy/stuffed animal, coloring book to patient or family member [] Provided Communion [] Anointing/[place] [] Salvation [x] Completed spiritual assessment [] Other: Impact on Illness or Injury [] Angry [] Fearful [] Anxious [] Often cries [] Exhaustion [] Unable to work [] Unable to attend muslim [] Unable to walk/stand [] Unable to read [] Unable to drive [] Unable to eat/drink [] Unable to sleep [] Unable to be with family [] Patient intubated [] Other: Summary Time spent with patient
[2021-06-09 10:12] LABS: Glucose Point of Care 416 mg/dL (70-110)
[2021-06-09 10:13] LABS: C Reactive Protein 123.5 mg/L (0.0-4.9); Digoxin 0.8 ng/mL (0.6-1.2)
[2021-06-09] MEDS: insulin regular-human 250 UNIT in sodium chloride 0.9% 250 ML 11 UNIT IV (10:56)
[2021-06-09 11:12] LABS: Ferritin > 2000 ng/mL (15-150)
[2021-06-09] MEDS: digoxin 250 mcg/ml INJ 2 mL IVP (11:46)
[2021-06-09] MEDS: dextrose 5% 1,000 ML 75 ML IV (11:47)
[2021-06-09 11:54] LABS: Glucose Point of Care 409 mg/dL (70-110)
--- NOTE | 2021-06-09 12:00 | PC.NUTR ---
Nutrition recommendation: TPN at 42 ml/hr providing 880 kcal, 50 g protein, and 200 g dextrose, meeting 49% estimated kcal needs and 59% estimated protein needs. Excessive CHO provision d/t 200 g dextrose from TPN with additional medications in D5W running. Gluc 467 noted. If gut functioning and no contraindication for enteral nutrition, continue to recommend change to tube feeding when medically appropriate as it is recommended over parenteral nutrition when possible. Suggest a lower CHO formula such as Glucerna or Pulmocare at low rate, with Beneprotein for additional protein. Also recommend check Phos when possible. See full RD assessment for further details.
--- NOTE | 2021-06-09 14:13 | PC.NURSE ---
20 units of insulin bolus per Doctors order at this time.
[2021-06-09] MEDS: insulin regular-human 20 UNIT in SYRINGE 1 EACH IVP (14:43)
[2021-06-09 14:51] LABS: Glucose Point of Care 286 mg/dL (70-110)
[2021-06-09 14:51] LABS: Glucose Point of Care 366 mg/dL (70-110)
[2021-06-09 15:39] LABS: Glucose Point of Care 152 mg/dL (70-110)
--- NOTE | 2021-06-09 16:23 | P.PN_ITS ---
Subjective Subjective: Interval history: Hospital course, labs appreciated. Examination today patient lying comfortably in bed on BiPAP facemask, 60% which had to go up to 75% during the day to maintain saturation over 88%. 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 Patient on Precedex drip of 0.1 on TPN at 50 cc an hour. Has remained afebrile. Blood pressures higher with systolic in the 170s. Documented urine output 950 cc in last 24 hours Vitals/I&O/Wt Last Vital Signs Temp 97.8 F 06/09/21 08:00 Pulse 105 H 06/09/21 16:11 Resp 23 H 06/09/21 16:11 BP 177/98 06/09/21 13:30 Pulse Ox 94 06/09/21 16:11 06/09/21 06/09/21 06/09/21 06:59 14:59 22:59 Intake Total 228.779 / 721.374 385.410 / 385.410 9.45 / 394.860 Output Total 350 / 350 600 / 600 Balance -121.221 / 371.374 385.410 / 385.410 -590.55 / -205.140 Weight last 48 hrs Weight 113.398 kg Weight 108.579 kg Physical Exam Narrative: EXAM NARRATIVE: General: No acute distress, confused, moaning, GCS E4 M2V2 HEENT: PERRLA, pupils bilaterally equal and reactive Chest: Bilateral bronchial breath sounds, coarse crackles all over the lung ortega with occasional rhonchi equal good air entry bilaterally CVS: S1-S2 regular, no murmurs, no tachycardia, no gallops, no rubs Abdomen: Soft, nontender, no organomegaly, bowel sounds present Neuro: No focal deficits, no facial deformity, power 5/5 in all limbs Data : 06/09/21 06:28 06/09/21 06:28 A&P Assessment and plan (1) Acute encephalopathy: Status: Acute (2) ARDS (adult respiratory distress syndrome): Status: Acute (3) COVID-19: Status: Acute (4) SUE (acute kidney injury): Status: Acute (5) Hypernatremia: Status: Acute (6) Atrial fibrillation with RVR: Status: Acute (7) Uncontrolled blood glucose: Status: Acute (8) Prolonged Q-T interval on ECG: Status: Acute (9) UTI (urinary tract infection): Status: Acute (10) Pulmonary HTN: Status: Acute (11) LISANDRA (obstructive sleep apnea): Status: Acute Additional A&P Information Acute conservatee: Most likely secondary to hypernatremia, SUE in setting of severe COVID-19 pneumonia causing hypoxia. ARDS/Hypoxia secondary to combination of COVID-19 pneumonia along with obstructive sleep apnea and congestive heart failure: Severe disease. Has completed course of remdesivir. Dexamethasone 3 mg daily, Hold off vitamin C and zinc given n.p.o. status. DuoNebs every 4 hour, desonide twice daily As possible pulmonary toilet with incentive spirometry flutter valve. Wean off oxygen keeping saturation over 88% Repeat ABG. Check proBNP. We will monitor inflammatory markers including ferritin, ESR, CRP, D-dimer, fibrinogen. Repeat inflammatory markers. D-dimer elevated. CT negative for pulmonary embolism. Holding off on full dose anticoagulation given hematoma. If hemoglobin remained stable within the next 24 hours we will switch on to full dose anticoagulation. Will monitor for anemia or blood loss. MRSA negative, urine Legionella bacterial antigen negative. Urine culture on admission positive for E. coli. Has finished a course of IV antibiotics. Currently on Zosyn. Continue azithromycin 500 IV daily. Precedex drip as possible. Given hypoxia will try to keep patient as negative as possible. Patient looking clinically dehydrated. Worsening SUE and hypernatremia. Most likely from poor oral intake from being BiPAP dependent. Stop diuresis. Start on gentle hydration with D5 at 75 cc/h. Strict input output charting, daily weights. Atrial fibrillation with rapid ventricular response: QTC prolonged. Repeat EKG shows QTC of 516. Check digoxin levels. Digoxin IV 250 mcg stat and then every 48 hours IV metoprolol 5 mg every 4 hours. To be held if systolic blood pressure less than 110 mmHg. Zurdo vas score: At least 5. Switch from Eliquis to full dose Lovenox for now. UTI: Urine culture. Finished course of IV antibiotics. Acute kidney injury: Worsening creatinine. Most likely from poor oral intake Baseline creatinine normal. IV fluids as above. Medical reconciliation done for nephrotoxic drugs. Hypernatremia: D5W as above. If does not improve will plan for NG tube. Repeat BMP in evening. Uncontrolled hyperglycemia: Type 2 diabetes mellitus: No past medical history. Check HbA1c. Start on insulin drip with target blood sugar around 200. Hypertension: Goal blood pressure less than 140/90 mmHg. Continue with metoprolol as above. For now hold off on lisinopril and amlodipine. DNR/DNI. Lovenox for DVT prophylaxis. NPO. Stop TPN. Famotidine for PUD prophylaxis. Stable current prognosis. Goals of care: Discussed in detail with patient's son and over the phone. They state they understand that Ms. Laura Eason is severely sick and she would not have wanted any kind of resuscitation including intubation or chest compressions. CODE STATUS changed to allow natural . They state if patient does not improve or has complication of fluid overload with current management is able want patient to be comfort measures. Attestations Medical Necessity Statement*: Requires further hospitalization for management of ARDS, acute encephalopathy secondary to SUE, hypernatremia, COVID-19 pneumonia, uncontrolled hyperglycemia. Critical Care Time: The high probability of a clinically significant, sudden or life threatening deterioration of the patient's [renal, cardiac, pulmonary, endocrine] system(s) required my full and direct attention, intervention and personal management. The critical care time is as shown. 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
[2021-06-09 16:28] LABS: Glucose Point of Care 105 mg/dL (70-110)
[2021-06-09 17:22] LABS: Estmated Average Glucose 217; Hemoglobin A1C 9.2 % (4.0-6.0)
[2021-06-09] MEDS: enoxaparin 30 mg/0.3 mL Syringe SUBCUT (17:39)
[2021-06-09 17:47] LABS: Glucose Point of Care 80 mg/dL (70-110)
[2021-06-09 18:40] LABS: Glucose Point of Care 105 mg/dL (70-110)
--- NOTE | 2021-06-09 19:02 | PC.NURSE ---
REPORT TO ON COMING SHIFT
[2021-06-09 19:46] LABS: Anion Gap 15.7 (5-19); Calcium 8.9 mg/dL (8.5-10.5); Carbon Dioxide 19 mmol/L (22-29); Chloride 127 mmol/L (98-107); Glucose 118 mg/dL (65-115); Osmolality Calculated 353 mOsm/kg (285-295); Potassium 4.7 mmol/L (3.5-5.1); Sodium 157 mmol/L (136-145)
[2021-06-09 19:49] LABS: Blood Urea Nitrogen 91 mg/dL (8-23)
[2021-06-09 23:04] LABS: Glucose Point of Care 190 mg/dL (70-110)
[2021-06-09 23:04] LABS: Glucose Point of Care 159 mg/dL (70-110)
[2021-06-10] VITALS (65 sets, daily range): BP systolic 94–203; BP diastolic 66–144; PULSE 93–144; RESP 15–59; TEMP 36.5–37; O2SAT 88–110; BMI 41.1
[2021-06-10 01:26] LABS: Glucose Point of Care 249 mg/dL (70-110)
[2021-06-10] MEDS: metoprolol tartrate 1 mg/1 mL SDV 5 mL 5 MG IVP ×6 (02:00→21:02)
[2021-06-10] MEDS: dextrose 5% 1,000 ML 75 ML IV ×2 (02:11→12:25)
[2021-06-10] MEDS: ipratropium-albuterol 3 mL Neb INHALATION ×6 (03:06→23:44)
[2021-06-10 03:19] LABS: ABG PCO2 30.4 mmHg (35-45); ABG PH Result 7.42 (7.35-7.45); Alveolar-Arterial Oxygen Gradi 56.7 mmHg (5-10); Arterial Blood Gas Hematocrit 47.6 % (37-47); Base Excess ABG -3.8 mmol/L (-2.0-2.0); Blood Gas Allen Test Pos; Blood Gas Sample Site Radial, right; Blood Gas Sample Type Arterial; HCO3 ABG 19.5 mmol/L (22-26); HGB O2 Sat 91.2 % (95-100); Ionized Calcium Level - ABG 1.3 mmol/L (1.1-1.4); Methemoglobin 0.2 % (0.4-1.5); Oxygen Device BIPAP; Oxygen Saturation ABG 92.3; PO2 ABG 59.6 mmHg (80.0-100.0); Potassium Level - ABG 4.6 mmol/L (3.5-5.0); Total Hemoglobin 15.5 g/dL (12-16)
[2021-06-10 05:03] LABS: Glucose Point of Care 204 mg/dL (70-110)
[2021-06-10 05:03] LABS: Basophils % 0.1 %; Hematocrit 49.1 % (37.0-47.0); Hemoglobin 15.1 g/dL (11.5-15.3); Lymphocytes # 0.5 10^3/uL (0.8-4.8); Lymphocytes % 3.9 %; Mean Corpuscular HGB Conc 30.8 g/dL (30.0-36.0); Mean Corpuscular Hemoglobin 30.3 pg (28.0-34.0); Mean Corpuscular Volume 98.6 fl (81-99); Mean Platelet Volume 13.4 fL (7.4-10.4); Monocytes # 0.4 10^3/uL (0.2-0.9); Monocytes % 2.7 %; Neutrophils # 12.17 10^3/uL (1.8-7.7); Neutrophils % 92.9 %; Nucleated Red Blood Cells % 0 %; Platelet Count 117 10^3/cmm (130-400); Red Blood Count 4.98 10^6/uL (4.1-5.3); Red Cell Distribution Width 14.3 % (12.1-15.1); White Blood Count 13.1 10^3/uL (4.0-10.0)
[2021-06-10 05:32] LABS: D Dimer 7.47 ug/mIFEU (0-0.59)
[2021-06-10 05:33] LABS: Alanine Aminotransferase 22 U/L (0-33); Albumin Level 2.1 g/dL (3.5-5.2); Alkaline Phosphatase 121 IU/L (35-105); Anion Gap 16.5 (5-19); Aspartate Amino Transferase 24 U/L (0-32); C Reactive Protein 110.6 mg/L (0.0-4.9); Calcium 8.7 mg/dL (8.5-10.5); Carbon Dioxide 18 mmol/L (22-29); Chloride 123 mmol/L (98-107); Globulin 3.8 g/dL (1.3-4.6); Glucose 222 mg/dL (65-115); Osmolality Calculated 350 mOsm/kg (285-295); Potassium 4.5 mmol/L (3.5-5.1); Sodium 153 mmol/L (136-145); Total Bilirubin 0.6 mg/dL (0.15-1.2); Total Protein 5.9 g/dL (6.6-8.7)
[2021-06-10 05:39] LABS: Blood Urea Nitrogen 90 mg/dL (8-23)
--- NOTE | 2021-06-10 05:54 | PC.NURSE ---
Shift Note Frequent safety and comfort rounds continue. Orders and/or nursing care completed as indicated. Patient monitored for response to intervention and treatment(s). Education provided includes Metoprolol. Patient needs further reinforcement teaching. Meza catheter drained 500 mls of dark yellow urine overnight. Patient remains on BIPAP at 75% FiO2. Right AC IV is saline locked at this time. Right PICC line has D5W infusing at 75 mls/hr. Patient remains nonverbal to painful and verbal stimuli and does not follow any commands. Patient has bruising to left abdomen and bilateral hands. Sacrum has a pressure injury that is covered with an Optifoam dressing. Left wrist has a blister that is covered with an optifoam dressing, please see wound assessment for further detail. Will continue to monitor.
[2021-06-10 05:56] LABS: Ferritin 2930 ng/mL (15-150)
[2021-06-10] MEDS: hyDRALAzine 20 mg/mL INJ 1 mL 10 MG IVP (07:53)
[2021-06-10] MEDS: piperacillin-tazobactam 3.375 GM in dextrose 5% (plus) 50 ML IV ×3 (07:53→23:13)
[2021-06-10] MEDS: budesonide 0.5 mg/2 mL Neb INHALATION ×2 (08:11→20:03)
[2021-06-10 08:18] LABS: Glucose Point of Care 151 mg/dL (70-110)
--- NOTE | 2021-06-10 08:47 | ECG_ITS ---
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 Measurements Intervals [place] Rate: 116 P: MA: QRS: -56 QRSD: 124 T: 119 QT: 342 QTc: 477 Interpretive Statements ATRIAL FIBRILLATION WITH RAPID VENTRICULAR RESPONSE LEFT AXIS DEVIATION [QRS AXIS < -30] RIGHT BUNDLE BRANCH BLOCK [120+ ms QRS DURATION, UPRIGHT V1, 40+ ms S IN I/aVL/V4/V5/V6] VOLTAGE CRITERIA FOR LVH [MEETS CRITERIA IN ONE OF: R(aVL), S(V1), R(V5), R(V5/V6)+S(V1)] ST DEVIATION AND MODERATE T-WAVE ABNORMALITY, CONSIDER LATERAL ISCHEMIA [-0.1+ mV T-WAVE IN I/aVL/V5/V6] Compared to ECG 06/09/2021 09:13:56 Myocardial infarct finding no longer present T-wave abnormality still present Possible ischemia still present Electronically Signed On 06-10-2021 17:32:53 CDT by Genna Martinez M.D. [id number]
--- NOTE | 2021-06-10 08:54 | PC.NURSE ---
Shift Note Frequent safety and comfort rounds continue. Orders and/or nursing care completed as indicated. Patient monitored for response to intervention and treatment(s). Education provided includes[neuro checks, skin integrity, nutrition, ventilation management, and BP/heart rate control]. Patient and/or wholesale representative [family was updated on pt's status and plan of care]. Will continue to monitor. Received bed side shift report from off going nurse. Pt's plan of are reviewed. Pt resting in bed. Respirations are even and unlabored. No s/sx of distress noted. Pt is lying in bed and staring up at the ceiling. Pt doesnt respond to my presence or follow commands. Pt blinks spontaneously and will intermittently cough and move her right arm. Unable to know if her arm movement is purposeful or not. Pt is not on any sedation at this time. Bed in lowest and locked position, call light within reach, x's 3 rails up. Bed alarm on. Will continue to monitor.
--- NOTE | 2021-06-10 08:58 | PC.SOCIAL ---
IMM Update Pg. 2 of IMM updated and reviewed with patient's over the phone who verbalized understanding. Initialed, dated, and timed.
--- NOTE | 2021-06-10 09:03 | PM.PN ---
Subjective Subjective: Interval history: Seen multiple times during the day. No acute events overnight. Patient on examination on 75% BiPAP, not following commands occasionally tracking with eyes. Has remained hemodynamically stable though blood pressures have been on the higher side. Heart rate usually running around 110s to 120s. NG tube was placed during the day after which she was started on oral rate limiting drugs and her heart rate improved. Has remained afebrile. Vitals/I&O/Wt Last Vital Signs Temp 98.3 F 06/11/21 07:30 Pulse 85 06/11/21 08:00 Resp 20 H 06/11/21 08:47 BP 145/101 06/11/21 08:00 Pulse Ox 95 06/11/21 08:47 06/10/21 06/11/21 06/11/21 22:59 06:59 14:59 Intake Total 50 / 867.7 2150 / 3017.7 Output Total 650 / 650 700 / 1350 Balance -600 / 217.7 1450 / 1667.7 Weight last 48 hrs Weight 113.171 kg Weight 112.264 kg Physical Exam Narrative: EXAM NARRATIVE: General: No acute distress, confused, moaning, GCS E4 M2V2 HEENT: PERRLA, pupils bilaterally equal and reactive Chest: Bilateral bronchial breath sounds, coarse crackles all over the lung ortega with occasional rhonchi equal good air entry bilaterally CVS: S1-S2 regular, no murmurs, no tachycardia, no gallops, no rubs Abdomen: Soft, nontender, no organomegaly, bowel sounds present Neuro: No focal deficits, no facial deformity, power 5/5 in all limbs Data : 06/11/21 03:28 06/11/21 03:28 A&P Assessment and plan (1) Acute encephalopathy: Status: Acute (2) ARDS (adult respiratory distress syndrome): Status: Acute (3) COVID-19: Status: Acute (4) SUE (acute kidney injury): Status: Acute (5) Hypernatremia: Status: Acute (6) Atrial fibrillation with RVR: Status: Acute (7) Uncontrolled blood glucose: Status: Acute (8) Prolonged Q-T interval on ECG: Status: Acute (9) UTI (urinary tract infection): E. coli sensitive to cephalosporins. Completed course with ceftriaxone. Status: Acute (10) Pulmonary HTN: Status: Acute (11) LISANDRA (obstructive sleep apnea): Status: Acute Additional A&P Information Acute encephalopathy: Most likely secondary to hypernatremia, SUE in setting of severe COVID-19 pneumonia causing hypoxia. Continue with Precedex drip as needed. Currently on 0.1. Next patient continues to remain encephalopathic will get CT head to rule out stroke. Cannot rule out press syndrome because of elevated blood pressures. Hypertension: Goal blood pressure less than 140/90 mmHg. Continue with metoprolol. Now patient has NG tube can start patient on amlodipine 10 mg daily, Cardizem 30 mg every 6 hourly. IV hydralazine 10 mg every 4 hours as needed. Will uptitrate medications as needed. ARDS/Hypoxia secondary to combination of COVID-19 pneumonia along with obstructive sleep apnea and congestive heart failure: Severe disease. Has completed course of remdesivir. Dexamethasone 3 mg daily, Hold off vitamin C and zinc given n.p.o. status. DuoNebs every 4 hour, desonide twice daily As possible pulmonary toilet with incentive spirometry flutter valve. Wean off oxygen keeping saturation over 88% We will monitor inflammatory markers including ferritin, ESR, CRP, D-dimer, fibrinogen. Repeat inflammatory markers. D-dimer elevated. CT negative for pulmonary embolism. Holding off on full dose anticoagulation given hematoma. If hemoglobin remained stable within the next 24 hours we will switch on to full dose anticoagulation. Will monitor for anemia or blood loss. MRSA negative, urine Legionella bacterial antigen negative. Urine culture on admission positive for E. coli. Has finished a course of IV antibiotics. Currently on Zosyn. Continue azithromycin 500 IV daily. Given hypoxia will try to keep patient as negative as possible. Patient looking clinically dehydrated. Worsening SUE and hypernatremia. Most likely from poor oral intake from being BiPAP dependent. Continue with IV hydration with D5 at 75 cc/h. Strict input output charting, daily weights. Atrial fibrillation with rapid ventricular response: QTC stable. Stop digoxin because of elevated levels. Amiodarone 200 mg through NG tube twice daily, Cardizem 30 mg every 6 hourly. Continue with IV metoprolol 5 mg every 4 hours Zurdo vas score: At least 5. Currently on prophylactic Lovenox for concerns regarding hematoma and anemia UTI: Urine culture. Finished course of IV antibiotics. Acute kidney injury: Creatinine stable today. Most likely from poor oral intake. Baseline creatinine normal. IV fluids as above. Medical reconciliation done for nephrotoxic drugs. Hypernatremia: D5W as above. NG tube placed. Free water flushes 250 every 6 hours. Repeat BMP in evening. Uncontrolled hyperglycemia: Better controlled. Switched from insulin drip to insulin sliding scale every 4 hours high-dose protocol. Start on insulin drip with target blood sugar around 200. DNR/DNI. Lovenox for DVT prophylaxis. NPO. Stop TPN. Famotidine for PUD prophylaxis. Stable current prognosis. Goals of care: Discussed in detail with patient's son and over the phone. They state they understand that Ms. Laura Eason is severely sick and she would not have wanted any kind of resuscitation including intubation or chest compressions. CODE STATUS changed to allow natural . They state if patient does not improve or has complication of fluid overload with current management is able want patient to be comfort measures. Attestations Medical Necessity Statement*: Requires further hospitalization for management of acute encephalopathy, ARDS, atrial fibrillation, uncontrolled blood pressures, hyperglycemia in setting of COVID-19 pneumonia, obstructive sleep apnea Critical Care Time: The high probability of a clinically significant, sudden or life threatening deterioration of the patient's [pulmonary, cardiac, neurology, renal] system(s) required my full and direct attention, intervention and personal management. The critical care time is as shown. 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
[2021-06-10] MEDS: digoxin 250 mcg/ml INJ 2 mL IVP (09:07)
[2021-06-10] MEDS: famotidine 20 mg/2 mL INJ IVP ×2 (09:07→21:02)
[2021-06-10] MEDS: dexamethasone 4 mg/mL INJ 3 MG IVP (09:07)
[2021-06-10 09:28] LABS: Digoxin 1.8 ng/mL (0.6-1.2)
[2021-06-10 09:40] LABS: Glucose Point of Care 121 mg/dL (70-110)
--- NOTE | 2021-06-10 09:51 | CT_ITS ---
WS: [id number] CT head wo con* [id number] REASON FOR EXAM: AMS IV CONTRAST ADMINISTERED: None. TOTAL EXAM DLP: 1720.[address] scans at [facility] use at least one of these dose optimization techniques: automat ed exposure control; mA and/or kV adjustment per patient size (includes targeted exams where dose is matched to clinical indication); or iterative reconstruction. FINDINGS: There is no midline shift or other significant mass effect. No findings of intracranial hemorrhage and no extra-axial fluid collection noted. 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 Low-attenuation involving the insular jameson ex on the right. This is compatible with old infarct. There is mild dilatation of the ipsilateral lat eral ventricle. No definite focal acute brain parenchymal abnormality is identified. Posterior fossa is partially obscured by artifact from the then position. No focal lesion identified. Base of the skull is intact. The examination is unchanged compared to previous study of 06/05/2021. CT/CT head wo con* [id number] IMPRESSION: Stable abnormal examination as above.
[2021-06-10] MEDS: nystatin cream 30 gm 1 APPLIC TOPICAL ×2 (10:09→17:13)
--- NOTE | 2021-06-10 12:29 | XR_ITS ---
WS: [id number] XR chest 1V portable [id number] REASON FOR EXAM: NG tube placement FINDINGS: Compared to the previous examination of 06/06/2021 and nasogastric tube has been placed. The tip of th e tube is in a position consistent with the fundus of the stomach. Cardiomegaly. Diffuse bilateral pulmonary infiltrates. XR/XR chest 1V portable [id number] IMPRESSION: Nasogastric tube placement, properly positioned as above.
[2021-06-10 13:10] LABS: INR 1.27 (0.8-1.2)
[2021-06-10 13:54] LABS: Fibrinogen 518 mg/dL (174-498)
[2021-06-10 15:12] LABS: Glucose Point of Care 171 mg/dL (70-110)
--- NOTE | 2021-06-10 15:28 | PC.RESP ---
RT Shift Note Frequent safety and respiratory rounds continue. Orders completed as indicated. Patient monitored pre and post treatments throughout shift. Patient [Did.] tolerate treatments appropriately. Condition [.DidNotChange]. Patient and/or statement services representative educated on respiratory treatment and medications. Patient and/or statement services representative [unable to comprehend. Will continue to monitor patient progress.
[2021-06-10] MEDS: amiodarone 200 mg Tablet PO ×2 (15:44→17:12)
[2021-06-10] MEDS: enoxaparin 30 mg/0.3 mL Syringe SUBCUT (17:12)
[2021-06-10 17:25] LABS: Glucose Point of Care 230 mg/dL (70-110)
[2021-06-10 21:30] LABS: Glucose Point of Care 211 mg/dL (70-110)
[2021-06-10 23:11] LABS: Glucose Point of Care 187 mg/dL (70-110)
[2021-06-10] MEDS: dilTIAZem 30 mg Tablet PO (23:13)
[2021-06-11] VITALS (23 sets, daily range): BP systolic 126–177; BP diastolic 62–124; PULSE 78–115; RESP 17–45; TEMP 36.1–36.8; O2SAT 89–100; BMI 41.5
[2021-06-11] MEDS: metoprolol tartrate 1 mg/1 mL SDV 5 mL 5 MG IVP ×3 (01:57→08:33)
[2021-06-11] MEDS: dextrose 5% 1,000 ML 75 ML IV (01:58)
[2021-06-11 02:27] LABS: Glucose Point of Care 191 mg/dL (70-110)
[2021-06-11] MEDS: ipratropium-albuterol 3 mL Neb INHALATION ×2 (03:24→07:58)
[2021-06-11 03:56] LABS: Basophils % 0.1 %; Hematocrit 46.3 % (37.0-47.0); Lymphocytes # 0.4 10^3/uL (0.8-4.8); Mean Corpuscular HGB Conc 30.2 g/dL (30.0-36.0); Mean Corpuscular Hemoglobin 30.4 pg (28.0-34.0); Mean Corpuscular Volume 100.7 fl (81-99); Mean Platelet Volume 12.7 fL (7.4-10.4); Monocytes # 0.2 10^3/uL (0.2-0.9); Neutrophils # 9.98 10^3/uL (1.8-7.7); Neutrophils % 93.4 %; Nucleated Red Blood Cells % 0 %; Platelet Count 86 10^3/cmm (130-400); Red Cell Distribution Width 14.3 % (12.1-15.1); White Blood Count 10.7 10^3/uL (4.0-10.0)
[2021-06-11 04:24] LABS: Alanine Aminotransferase 21 U/L (0-33); Albumin Level 1.9 g/dL (3.5-5.2); Alkaline Phosphatase 117 IU/L (35-105); Anion Gap 13.3 (5-19); Aspartate Amino Transferase 19 U/L (0-32); Blood Urea Nitrogen 76 mg/dL (8-23); Calcium 8.5 mg/dL (8.5-10.5); Carbon Dioxide 19 mmol/L (22-29); Chloride 122 mmol/L (98-107); Globulin 3.6 g/dL (1.3-4.6); Glucose 219 mg/dL (65-115); Osmolality Calculated 339 mOsm/kg (285-295); Potassium 4.3 mmol/L (3.5-5.1); Sodium 150 mmol/L (136-145); Total Bilirubin 0.5 mg/dL (0.15-1.2); Total Protein 5.5 g/dL (6.6-8.7)
[2021-06-11 04:41] LABS: ABG PCO2 35.4 mmHg (35-45); ABG PH Result 7.37 (7.35-7.45); Arterial Blood Gas Hematocrit 51.1 % (37-47); Base Excess ABG -4.3 mmol/L (-2.0-2.0); Blood Gas Allen Test Pos; Blood Gas Sample Site Radial, right; Blood Gas Sample Type Arterial; Carboxyhemoglobin 0.9 %THgb (0.4-20.1); HCO3 ABG 20.3 mmol/L (22-26); HGB O2 Sat 95.7 % (95-100); Ionized Calcium Level - ABG 1.2 mmol/L (1.1-1.4); Oxygen Saturation ABG 96.5; PO2 ABG 88.7 mmHg (80.0-100.0); Total Hemoglobin 16.7 g/dL (12-16)
[2021-06-11 04:42] LABS: Alveolar-Arterial Oxygen Gradi 52.1 mmHg (5-10); Blood Gas Operator Identificat JB; Oxygen Device BIPAP
[2021-06-11 04:49] LABS: Ferritin 2172 ng/mL (15-150)
[2021-06-11] MEDS: dilTIAZem 30 mg Tablet PO (06:45)
[2021-06-11 06:56] LABS: Glucose Point of Care 173 mg/dL (70-110)
--- NOTE | 2021-06-11 07:46 | PC.NURSE ---
Shift Note Frequent safety and comfort rounds continue. Orders and/or nursing care completed as indicated. Patient monitored for response to intervention and treatment(s). Education provided includes plan of care. Patient needs further reinforcement. Continues to wear BIPAP at 75% FiO2. Will continue to monitor.
[2021-06-11] MEDS: budesonide 0.5 mg/2 mL Neb INHALATION (07:58)
[2021-06-11 08:15] LABS: Glucose Point of Care 173 mg/dL (70-110)
[2021-06-11] MEDS: piperacillin-tazobactam 3.375 GM in dextrose 5% (plus) 50 ML IV (08:18)
[2021-06-11] MEDS: dexamethasone 4 mg/mL INJ 3 MG IVP (08:32)
[2021-06-11] MEDS: amlodipine 10 mg Tablet PO (08:33)
[2021-06-11] MEDS: amiodarone 200 mg Tablet PO (08:33)
[2021-06-11] MEDS: famotidine 20 mg/2 mL INJ IVP (08:33)
[2021-06-11] MEDS: morphine 4 mg/mL SDV 1 mL 1 MG IVP (08:47)
--- NOTE | 2021-06-11 09:03 | P.PN_ITS ---
Subjective Subjective: Interval history: No acute events overnight. Blood pressures better. Heart rate better since starting on oral Cardizem. NG tube in place. Persistently on BiPAP, 75% saturating 95%. Continues to remain nonverbal, not following commands or tracking with eyes. Documented urine output 1500 cc in last 24 hours. Afebrile and hemodynamically stable. Vitals/I&O/Wt Last Vital Signs Temp 98.3 F 06/11/21 07:30 Pulse 85 06/11/21 08:00 Resp 20 H 06/11/21 08:47 BP 145/101 06/11/21 08:00 Pulse Ox 95 06/11/21 08:47 06/10/21 06/11/21 06/11/21 22:59 06:59 14:59 Intake Total 50 / 867.7 2150 / 3017.7 Output Total 650 / 650 700 / 1350 Balance -600 / 217.7 1450 / 1667.7 Weight last 48 hrs Weight 113.171 kg Weight 112.264 kg Physical Exam Narrative: EXAM NARRATIVE: General: No acute distress, confused, moaning, GCS E4 M2V2 HEENT: PERRLA, pupils bilaterally equal and reactive Chest: Bilateral bronchial breath sounds, coarse crackles all over the lung ortega with occasional rhonchi equal good air entry bilaterally CVS: S1-S2 regular, no murmurs, no tachycardia, no gallops, no rubs Abdomen: Soft, nontender, no organomegaly, bowel sounds present Neuro: No focal deficits, no facial deformity, power 5/5 in all limbs Data : 06/11/21 03:28 06/11/21 03:28 A&P Assessment and plan (1) Acute encephalopathy: Status: Acute (2) ARDS (adult respiratory distress syndrome): Status: Acute (3) COVID-19: Status: Acute (4) SUE (acute kidney injury): Status: Acute (5) Hypernatremia: Status: Acute (6) Atrial fibrillation with RVR: Status: Acute (7) Uncontrolled blood glucose: Status: Acute (8) Prolonged Q-T interval on ECG: Status: Acute (9) UTI (urinary tract infection): E. coli sensitive to cephalosporins. Completed course with ceftriaxone. Status: Acute (10) Pulmonary HTN: Status: Acute (11) LISANDRA (obstructive sleep apnea): Status: Acute Additional A&P Information Acute encephalopathy: Most likely secondary to hypernatremia, SUE in setting of severe COVID-19 pneumonia causing hypoxia. Precedex weaned off for last 48 hours. EEG ordered still awaiting. CT head negative for any acute abnormality Cannot rule out press syndrome because of elevated blood pressures. Blood pressures better controlled for last 24 hours Hypertension: Goal blood pressure less than 140/90 mmHg. Metoprolol 75 mg twice daily Continue with amlodipine 10 mg daily, Cardizem 30 mg every 6 hourly. IV hydralazine 10 mg every 4 hours as needed. Will uptitrate medications as needed. ARDS/Hypoxia secondary to combination of COVID-19 pneumonia along with obstructive sleep apnea and congestive heart failure: Severe disease. Has completed course of remdesivir. Dexamethasone 3 mg daily, Hold off vitamin C and zinc given n.p.o. status. DuoNebs every 4 hour, desonide twice daily As possible pulmonary toilet with incentive spirometry flutter valve. Wean off oxygen keeping saturation over 88% We will monitor inflammatory markers including ferritin, ESR, CRP, D-dimer, fibrinogen. Repeat inflammatory markers. D-dimer elevated. CT negative for pulmonary embolism. Holding off on full dose anticoagulation given hematoma. If hemoglobin remained stable within the next 24 hours we will switch on to full dose anticoagulation. Will monitor for anemia or blood loss. MRSA negative, urine Legionella bacterial antigen negative. Urine culture on admission positive for E. coli. Has finished a course of IV antibiotics. Currently on Zosyn. Continue azithromycin 500 IV daily. Given hypoxia will try to keep patient as negative as possible. Patient looking clinically dehydrated. Worsening SUE and hypernatremia. Most likely from poor oral intake from being BiPAP dependent. Continue with IV hydration with D5 at 75 cc/h. Depending on the output can give IV Lasix during the day. Strict input output charting, daily weights. Atrial fibrillation with rapid ventricular response: QTC stable. Amiodarone 200 mg through NG tube twice daily, Cardizem 30 mg every 6 hourly. Metoprolol 75 mg twice daily. Zurdo vas score: At least 5. Currently on prophylactic Lovenox for concerns regarding hematoma and anemia UTI: Urine culture. Finished course of IV antibiotics. Acute kidney injury: Slightly better. Most likely from poor oral intake. Baseline creatinine normal. IV fluids as above. Medical reconciliation done for nephrotoxic drugs. Hypernatremia: Slightly better. D5W as above. NG tube placed. Free water flushes 250 every 6 hours. Repeat BMP in evening. Uncontrolled hyperglycemia: Better controlled. Switched from insulin drip to insulin sliding scale every 4 hours high-dose protocol. Start on insulin drip with target blood sugar around 200. DNR/DNI. Lovenox for DVT prophylaxis. NPO. Stop TPN. Famotidine for PUD prophylaxis. Severely guarded prognosis. Goals of care: Discussed and updated patient's Mr. Navarro regarding slight improvement in kidney functions and sodium levels though patient continues to remain on high oxygen supplementation and persistent BiPAP for last 6 days with extremely poor mentation and CT head negative for any stroke. We also discussed going forward is possible that patient would need a PEG tube. Patient's state that she would not have wanted to live in vegetative state, with any aggressive treatment like being done for the last 1 week for PEG tube and there wishes are to make patient as comfortable as possible. We discussed about comfort measures status and family wants patient to be put on comfort measures status as soon as possible. is aware that on comfort measures status patient will most likely . CODE STATUS changed to comfort measures status only. Morphine and Ativan as needed. Switch from BiPAP to 2 L oxygen supplementation for comfort. No further blood work or vital check. Attestations Medical Necessity Statement*: Requires further hospitalization for comfort measures status only. Critical Care Time: The high probability of a clinically significant, sudden or life threatening deterioration of the patient's [pulmonary, cardiac, neurolo gical, renal, social] system(s) required my full and direct attention, inte rvention and personal management. The critical care time is as shown. 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
[2021-06-11] MEDS: nystatin cream 30 gm 1 APPLIC TOPICAL (09:15)
--- NOTE | 2021-06-11 09:25 | PC.CHAP ---
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 resting Relational/Emotional Strength [] Patient feels connected with others/family/visitors/staff [] Distress [] Loneliness/isolation [] Abandonment Spirituality of Patient [] Person of Radha [] Attends Gnosticism of their Radha [] Believes in Prayer [] Reads Bible or Anabaptist materials [] There are Spiritual issues to be addressed Shirt Hemmer Interventions [x] Prayer [] Active listening [] Non-anxious presence [] Spiritual/emotional support [] Crisis/trauma care [] Spiritual counseling [] Bereavement support [] Provided bereavement packet [] Provided Bible/devotional materials [] Provided toy/stuffed animal, coloring book to patient or family member [] Provided Communion [] Anointing/[employer] [] Salvation [x] Completed spiritual assessment [] Other: Impact on Illness or Injury [] Angry [] Fearful [] Anxious [] Often cries [] Exhaustion [] Unable to work [] Unable to attend orthodox [] Unable to walk/stand [] Unable to read [] Unable to drive [] Unable to eat/drink [] Unable to sleep [] Unable to be with family [] Patient intubated [] Other: Summary Time spent with patient
[2021-06-11] MEDS: apixaban 5 mg Tablet PO (10:00)
--- NOTE | 2021-06-11 10:46 | PC.NUTR ---
Nutrition recommendations: TPN discontinued, TF ordered yesterday. Possible change to comfort care per nurse. If comfort care not ordered and TF still deemed appropriate, recommend to initiate current diet order when appropriate, which will provide 1152 kcal, 58 g protein, and 1773 ml H2O. Given stage 2 wound, would suggest addition of Beneprotein, 1 scooop 2-3 X per day with flushes, to better meet protein needs. See full RD assessments for further details.
[2021-06-11 13:26] LABS: Erythrocyte Sedimentation Rate 33 mm/hr (0-15)
[2021-06-11 13:27] LABS: Erythrocyte Sedimentation Rate 41 mm/hr (0-15)
[2021-06-11] MEDS: LORazepam 2 mg/mL INJ 1 mL IVP ×3 (13:27→14:34)
[2021-06-11] MEDS: morphine 4 mg/mL SDV 1 mL IVP ×3 (13:27→14:34)
--- NOTE | 2021-06-11 14:56 | PC.SLP ---
Pt is currently Comfort Care. Holding off on AIRPORT REPRESENTATIVE eval.
--- NOTE | 2021-06-11 15:52 | PC.NURSE ---
Pt at 15:13. No family at bed side. Family was notified and wishes to use [facility] home. Dr. Salvador notified.
--- NOTE | 2021-06-11 16:29 | PC.NURSE ---
glasses and small hoop earrings given to home when here to pick her up.
--- NOTE | 2021-06-11 16:57 | PM.DDS ---
Discharge Providers DDS Date of Admission: 06/01/21 13:24 Date Summary Completed: 06/11/21 Attending Provider at Admission: Syd Salvador MD Time of : 15:17 Attending Provider at Discharge: Syd Salvador MD Primary Care Provider: MARVIN Clark Diagnoses Hospital Diagnoses (1) Acute encephalopathy: (2) ARDS (adult respiratory distress syndrome): (3) COVID-19: (4) SUE (acute kidney injury): (5) Hypernatremia: (6) Atrial fibrillation with RVR: (7) Uncontrolled blood glucose: (8) Prolonged Q-T interval on ECG: (9) UTI (urinary tract infection): (10) Pulmonary HTN: (11) LISANDRA (obstructive sleep apnea): Reason for Visit Reason for Visit: RESP DISTRESS; COVID + Summary Date and Time of Date of : 06/11/21 Time of : 15:17 Summary Summary: Laura Lynn is a 76 year old female past medical history of atrial fibrillation, s/p cardioversion x 3 times in the past, pulmonary hypertension, obstructive sleep apnea on CPAP at night, post AAA repair who was recently in hospital from 05/20-05/21 for atrial fibrillation with rapid ventricular response was admitted on June 01 with complaints of extreme shortness of breath, lethargy and weakness along with myalgias getting worse for last 3 days. Patient tested positive for Covid on May 23. Patient went to the hospital and started on treatment with IV remdesivir, dexamethasone. On admission patient was found to have UTI for which she required IV antibiotics and finished a course of culture directed medications. Her hospitalization was complicated by atrial fibrillation which was difficult to manage for which she required multiple medications including Cardizem drip and amiodarone drip at different times. She was also found to have uncontrolled hyperglycemia and elevated blood pressures for which multiple medications were adjusted along with patient requiring insulin drip between. Her hospitalization was also complicated by patient developing acute on chronic kidney disease and worsening hypernatremia which was thought to be from poor oral intake. Patient during hospitalization for most part was BiPAP dependent and would not tolerate coming off BiPAP to heated high flow for last 5 to 6 days. Her hypernatremia was managed by IV fluids and NG tube placement. Her SUE and hypernatremia showed slight improvement with fluid management though patient continued to require high oxygen supplementation as high as 75% continuous BiPAP ventilation along with patient's worsening metabolic encephalopathy. Multiple goals of care discussion was done with patient's Mr. Navarro and son Mr. Oconnor who stated that patient did not want any kind of life prolonging modalities including mechanical ventilation, chest compression or feeding tube. Because of persistent high oxygen requirement and metabolic encephalopathy even after slight improvement of kidney functions and hypernatremia family decided patient to be placed on comfort measures on June 11. Patient on June 11 at 3:17 PM. Patient was comfortable. Family has been notified. 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
== END 2021-06-11 16:37 | disposition expired | DRG 177 ==
LOC: ER 13:40 → CSU 14:01 → ICU 14:53
PROVIDERS: Hospitalist; Internal Medicine; Admitting Provider Student in an Organized Health Care Education/Training Program; Emergency Provider Emergency Medicine; PCP Nurse Practitioner Family; Visit Provider Student in an Organized Health Care Education/Training Program
DX: U07.1 COVID-19 (principal); J12.82 Pneumonia due to coronavirus disease 2019; I50.31 Acute diastolic (congestive) heart failure; J80 Acute respiratory distress syndrome; G93.41 Metabolic encephalopathy; N39.0 Urinary tract infection, site not specified; N17.9 Acute kidney failure, unspecified; F05 Delirium due to known physiological condition; E87.0 Hyperosmolality and hypernatremia; I48.91 Unspecified atrial fibrillation; E86.0 Dehydration; G47.33 Obstructive sleep apnea (adult) (pediatric); I27.20 Pulmonary hypertension, unspecified; Z87.891 Personal history of nicotine dependence; I11.0 Hypertensive heart disease with heart failure; B96.20 Unspecified Escherichia coli [E. coli] as the cause of diseases classified elsewhere; Z51.5 Encounter for palliative care; Z66 Do not resuscitate; R73.9 Hyperglycemia, unspecified; N14.1 Nephropathy induced by other drugs, medicaments and biological substances; T50.8X5A Adverse effect of diagnostic agents, initial encounter
CPT/HCPCS: 36415; 36416; 36569; 36600; 70450; 71045; 71275; 76770; 80048; 80051; 80053; 80162; 81001; 82248; 82330; 82436; 82550; 82570; 82728; 82803; 82805; 82962; 83036; 83540; 83550; 83605; 83735; 83880; 84100; 84132; 84133; 84145; 84300; 84443; 84540; 85025; 85362; 85378; 85384; 85610; 85651; 85730; 86140; 86403; 86705; 86706; 86709; 86803; 87040; 87077; 87086; 87186; 87340; 87449; 87641; 87804; 87806; 93005; 93306; 94003; 94640; 94660; 94664; 96365; 96372; 96375; 96376; 99291; A4570; J0282; J0360; J0456; J0696; J1100; J1160; J1630; J1650; J1815; J1940; J2060; J2270; J2543; J3490; J3535; J7030; J7050; J7060; J7626; J7799; Q0144; Q9967